=== PATIENT | male | born 1945 | race Caucasian/White ===

== ENCOUNTER 2018-02-11 13:17 | Emergency (ER) | payer OTHER ==
--- OUTSIDE RECORDS SUMMARY | 2018-02-11 13:20 | XMS REPORT | Clinical Summary ---
:1945 Author Organization [facility]viously [employer] Address [address] [place] [address] Phone Care Team Providers Name Role Phone Unavailable Primary Care Provider Unavailable Allergies Active Allergy Reactions Severity Noted Date Comments Meperidine Other (See Comments) 04/05/2017 Hallucinations Current Medications Prescription Sig. Disp. Refills Start Date End Date Status multivitamin per Take 1 tablet Active tablet by mouth daily. ondansetron Take 4 mg by Active (ZOFRAN-ODT) 4 MG mouth every 8 disintegrating (eight) hours tablet as needed for Nausea. magnesium oxide Take 400 mg by Active (MAG-OX) 400 mg mouth 2 (two) tablet times daily. ascorbic acid, Take 500 mg by Active vitamin C, (ASCORBIC mouth daily. ACID WITH ALMA HIPS) 500 MG tablet omega-3 fatty Take 1,000 mg Active acids-vitamin E by mouth. 1,000 mg Cap albuterol HFA Inhale 2 puffs Active (VENTOLIN HFA) 90 by mouth via mcg/actuation inhaler every inhaler 6 (six) hours as needed for Wheezing. dexamethasone Take 1 tablet 12 tablet 0 12/26/2017 Active (DECADRON) 4 MG 3 times a day tablet for 2 days, followed by 1 tablet 2 times a day for 2 days, followed by 1 tablet once daily for 2 days.. dexamethasone Take 4 mg by Discontinued (DECADRON) 4 MG mouth 2 (two) 7 tablet times daily with breakfast and dinner. potassium chloride Take 10 mEq by Discontinued SA (K-DUR,KLOR-CON) mouth 2 (two) 7 10 MEQ tablet times daily Per patient notes, pt takes 95 mg. daily . doxycycline Take 1 capsule 36 capsule 0 04/25/2017 (MONODOX) 100 MG (100 mg total) 7 capsule by mouth 2 (two) times daily for 18 days. fluconazole Take 2 tablets 36 tablet 0 04/25/2017 (DIFLUCAN) 200 MG (400 mg total) 7 tablet by mouth daily for 18 days. metroNIDAZOLE Take 1 tablet 54 tablet 0 04/25/2017 (FLAGYL) 500 MG (500 mg total) 7 tablet by mouth 3 (three) times daily for 18 days. dexamethasone Take 1 tablet 12 tablet 0 12/26/2017 Discontinued (DECADRON) 4 MG 3 times a day 8 tablet for 2 days, followed by 1 tablet 2 times a day for 2 days, followed by 1 tablet once daily for 2 days.. Active Problems Problem Noted Date Acute nonintractable headache, unspecified headache type 12/23/2017 Hypokalemia 12/23/2017 Cerebellar mass 12/23/2017 Acute basilic vein thrombosis, right 04/20/2017 Empyema of right pleural space (HCC) s/p pigtail 04/07; PMH small cell lung 01/2017 cancer s/p chemo x2 rounds, recurrent right pleural effusions, visceral and pleural decortication (04/15/17) Bacteremia 04/07/2017 SOB (shortness of breath) 04/06/2017 Pleural effusion, malignant 04/05/2017 Small cell lung cancer (HCC) Recurrent pleural effusion on right Moderate protein-calorie malnutrition (HCC) Thrush Hyponatremia Encounters Date Type Specialty Care Team Description 12/24/2017 Procedure Pass 12/24/2017 Surgery Mya Hinojosa MD CRANIOTOMY,[facility] 12/23/2017 - Hospital Encounter Intensive Care Arin Arreguin Acute nonintractable 12/26/2017 MD Cali headache, unspecified Mya Hinojosa MD headache type (Primary Dx);Ataxia;Cerebellar mass;Hypokalemia;Brai n mass;Cerebral edema (HCC) 12/23/2017 Anesthesia Event Jessy Guerrero MD 12/23/2017 Orders Only General Internal Medicine 04/15/2017 Procedure Pass 04/15/2017 Surgery Anuj Mcclendon MD 04/14/2017 Anesthesia Event Topher Tyrese CHRISTOPHER Huerta 04/12/2017 Orders Only General Internal Medicine 04/05/2017 - Hospital Encounter Cardiology Amandeep Lau Hyponatremia; Moderate 04/25/2017 MD Giselle protein-calorie FarrisKemal MD ([facility]);Recurrent Gadicherla, pleural effusion on Dinorah right;Small cell lung MD Katie cancer, unspecified Jarrouge, Adrian laterality (HCC);ROMEO Velazquez MD (shortness of Pino, Beatriz breath);Thrush;Bacter MD shahnaz Montejo;Empyema of right pleural space ([facility]);Septicemia, pneumococcal ([facility]);Neutropenic fever ([facility]);Streptococcal septicemia ([facility]);Empyema lung ([facility]);Acute basilic vein thrombosis, right;Radha infection;Infection due to anaerobes after 02/10/2017 Social History Tobacco Use Types Packs/Day Years Used Date Current Some Day Smoker 1.5 40 Smokeless Tobacco: Never Used Tobacco Cessation: Ready to Quit: No; Counseling Given: No Alcohol Use Drinks/Week oz/Week Comments No No EtOH since 1984 Sex Assigned at Date Recorded Not on file Last Filed Vital Signs Vital Sign Reading Time Taken Blood Pressure 138/65 12/26/2017 3:00 PM CDT Pulse 91 12/26/2017 3:00 PM CDT Temperature 36.8 C (98.3 F) 12/26/2017 2:00 PM CDT Respiratory Rate 23 12/26/2017 3:00 PM CDT Oxygen Saturation 99% 12/26/2017 3:00 PM CDT Inhaled Oxygen Concentration - - Weight 59.2 kg (130 lb 8.2 oz) 12/26/2017 5:59 AM CDT Height 167.6 cm (5' 6") 12/23/2017 8:00 PM CDT Body Mass Index 21.07 12/26/2017 5:59 AM CDT Plan of Treatment Not on file Implants Implanted Type Area Graphic Arts Instructor Device Expiration Model / Identifier Date Serial / Lot Dejordan Vhsd Full Strlprep 10ml [id number] - [id number] Cement/Luan N/A: PARKER: BIOSCI 05/04/2019 [id number] / Implanted: Qty: 1 on 12/24/2017 by Mya Hinojosa MD ler/Adhesi Head / ve [id number] Sealant Durasl Spine 5ml [id number] - [id number] Cement/Luan N/A: INTEGRA LIFESCI 12/03/[id number] / Implanted: Qty: 1 on 12/24/2017 by Mya Hinojosa MD ler/Adhesi Head / ve [id number] Cvr Bur-Hl Lp-Neuro 17mm Ti Ns 421.527 - [id number] Fracture/F N/A: SYNTHES: SYNTHES 421.527 / Implanted: Qty: 2 on 12/24/2017 by Mya Hinojosa MD ixation Head USA / Plt Str Lp-Neuro 2h 12mm Ti Ns 421.502 - [id number] Fracture/F N/A: SYNTHES: SYNTHES 421.502 / Implanted: Qty: 4 on 12/24/2017 by Mya Hinojosa MD ixation Head USA / Scr Sd Mtrxneu 4mm Ti Ns 04.503.104.01 - [id number] Fracture/F N/A: SYNTHES: SYNTHES [id number] / Implanted: Qty: 18 on 12/24/2017 by Mya Hinojosa MD ixation Head USA / Graft Matrix Dura 2x2in [id number] - [id number] Tissue N/A: MEDTRONIC 2018 [id number] / Implanted: Qty: 1 on 12/24/2017 by Mya Hinojosa MD Graft/Subs Head SURGICAL / titute NAVIGATION [id number] Grft Dura Cllgn Duragn 2x2in Id-2201 - [id number] Tissue N/A: INTEGRA ID-[id number] / Implanted: Qty: 1 on 12/24/2017 by Mya Hinojosa MD Graft/Subs Head LIFESCI: NEURO / titute [id number] Procedures Procedure Name Priority Date/Time Associated Diagnosis Comments CRANIOTOMY,STEALTH 12/24/2017 11:00 AM CDT BRAIN MASS Special Needs (PRONE, MICROSCOPE, ULTRASOUND, NAVIGATION) THORACOSCOPY (VATS),DECORTICATION 04/15/2017 11:30 AM CDT Empyema (HCC) Case Notes FLEXIBLE BRONCHOSCOPY, RIGHT THORACOSCOPIC PLEURAL BIOPSY, POSS DECORTICATION THORACOSCOPY (VATS),BIOPSY OF PLEURA 04/15/2017 11:30 AM CDT Empyema (HCC) Case Notes FLEXIBLE BRONCHOSCOPY, RIGHT THORACOSCOPIC PLEURAL BIOPSY, POSS DECORTICATION BRONCHOSCOPY 04/15/2017 11:30 AM CDT Empyema (HCC) Case Notes FLEXIBLE BRONCHOSCOPY, RIGHT THORACOSCOPIC PLEURAL BIOPSY, POSS DECORTICATION after 02/10/2017 Results INTRAOPERATIVE PATH REPORT - SCAN (12/29/2017 2:50 PM)Only the most recent of2 resultswithin the time period is included.RHYTHM STRIP - SCAN (12/29/2017 2:50 PM)Only the most recent of4 resultswithin the time period is included.POC- Glucose meter (12/26/2017 12:41 PM)Only the most recent of10 resultswithin the time period is included. Component Value Ref Range POC-Glucose Meter 141 (H)Comment: TESTED AT [address] 70 - 110 mg/[place] [id number] Specimen Performing Laboratory Blood [facility] [address] [address] CBC with platelet count + automated diff (12/26/2017 3:58 AM)Only the most recent of25 resultswithin the time period is included. Component Value Ref Range WBC 14.9 (H) 3.5 - 10.5 K/L RBC 3.20 (L) 4.63 - 6.08 M/L Hemoglobin 11.3 (L) 13.7 - 17.5 GM/DL Hematocrit 33.0 (L) 40.1 - 51.0 % MCV 103.1 (H) 79.0 - 92.2 fL MCH 35.3 (H) 25.7 - 32.2 pg MCHC 34.2 32.3 - 36.5 GM/DL RDW 13.0 11.6 - 14.4 % Platelets 127 (L) 150 - 450 K/CU MM MPV 10.0 9.4 - 12.4 fL nRBC 0 0 - 0 /100 WBC % Neutros 87 % % Lymphs 4 % % Monos 8 % % Eos 0 % % Baso 0 % # Neutros 13.03 (H) 1.78 - 5.38 K/L # Lymphs 0.57 (L) 1.32 - 3.57 K/L # Monos 1.22 (H) 0.30 - 0.82 K/L # Eos 0.00 (L) 0.04 - 0.54 K/L # Baso 0.01 0.01 - 0.08 K/L Immature Granulocytes-Relative 1 0 - 1 % Specimen Performing Laboratory Blood [address] [address] CBC with platelet count + automated diff (12/26/2017 3:58 AM)Only the most recent of25 resultswithin the time period is included. Specimen Performing Laboratory Blood Narrative The following orders were created for panel order CBC with platelet count + automated diff. Procedure Abnormality Status --------- ------ CBC with platelet count ...[[id number]]AbnormalFinal result Please view results for these tests on the individual orders. Phosphorus (12/26/2017 3:58 AM)Only the most recent of6 resultswithin the time period is included. Component Value Ref Range Phosphorus 2.5 2.3 - 4.7 mg/dL Specimen Performing Laboratory Blood [address] [address] Magnesium (12/26/2017 3:58 AM)Only the most recent of27 resultswithin the time period is included. Component Value Ref Range Magnesium 2.0 1.6 - 2.6 mg/dL Specimen Performing Laboratory Blood [address] [address] Basic Metabolic Panel (12/26/2017 3:58 AM)Only the most recent of27 resultswithin the time period is included. Component Value Ref Range Sodium 141 136 - 145 meq/L Potassium 3.8 3.5 - 5.1 meq/L Chloride 108 (H) 98 - 107 meq/L CO2 26 22 - 29 meq/L BUN 25 (H) 7 - 21 mg/dL Creatinine 0.81 0.57 - 1.25 mg/dL Glucose 121 (H) 70 - 105 mg/dL Calcium 8.2 (L) 8.4 - 10.2 mg/dL EGFR 94Comment: ESTIMATED GFR IS NOT ACCURATE mL/min/1.73 sq m CREATININE CLEARANCE IN PREDICTING GLOMERULAR FILTRATION RATE. ESTIMATED GFR IS NOT APPLICABLE FOR DIALYSIS PATIENTS. Specimen Performing Laboratory [address] [address] MR brain without & with IV contrast (12/25/2017 7:10 PM) Specimen Performing Laboratory GE RIS Narrative FINAL REPORT MRI brain with and without contrast Comparison: Outside MRI December 23, 2017 Reason for exam: Metastatic chest neoplasm Discussion: Multiplanar MR imaging of the brain was provided [id number] IV gadolinium administration using T1, T2, FLAIR, T2 star, diffusion weighted sequences, and ADC map imaging. There is craniotomy right posterior occipital region with gross total resection of a right-sided posterior occipital lobe enhancing lesion. There is also left lateral posterior fossa region occipital craniotomy with gross total resection of a large left-sided lateral cerebellar mass. Small hemorrhages are present at both locations. There is persistent vasogenic edema at both locations with persistent posterior fossa mass effect. Fourth ventricular distortion is persistent but improved. A small right-sided parafalcine subdural hemorrhage is present without mass effect. No hydrocephalus. No gross hematoma. Impressions: Gross total sections right smaller posterior occipital mass and left dominant cerebellar mass. Residual vasogenic edema and mass effect as discussed. Minimal perioperative hemorrhages. Short-term head CT follow-up is suggested. Signed: Sabina Perez MD Report Verified Date/Time:12/25/2017 20:17:47 Procedure Note Interface, External Ris In - 12/25/2017 8:19 PM CDT FINAL REPORT MRI brain with and without contrast Comparison: Outside MRI December 23, 2017 Reason for exam: Metastatic chest neoplasm Discussion: Multiplanar MR imaging of the brain was provided [id number] IV gadolinium administration using T1, T2, FLAIR, T2 star, diffusion weighted sequences, and ADC map imaging. There is craniotomy right posterior occipital region with gross total resection of a right-sided posterior occipital lobe enhancing lesion. There is also left lateral posterior fossa region occipital craniotomy with gross total resection of a large left-sided lateral cerebellar mass. Small hemorrhages are present at both locations. There is persistent vasogenic edema at both locations with persistent posterior fossa mass effect. Fourth ventricular distortion is persistent but improved. A small right-sided parafalcine subdural hemorrhage is present without mass effect. No hydrocephalus. No gross hematoma. Impressions: Gross total sections right smaller posterior occipital mass and left dominant cerebellar mass. Residual vasogenic edema and mass effect as discussed. Minimal perioperative hemorrhages. Short-term head CT follow-up is suggested. Signed: Sabina Perez MD Report Verified Date/Time: 12/25/2017 20:17:47 SFUSION SERVICE REPORT - SCAN (12/24/2017 5:44 PM)Tissue Exam (12/24/2017 2:21 PM)Only the most recent of2 resultswithin the time period is included. Component Value Ref Range Case Report Surgical Pathology Report Case: [id number] Authorizing Provider:Mya Hinojosa MDCollected: 12/24/2017 1421 Ordering Location: [place] [address] ICUReceived: 12/24/2017 1428 Pathologist: Aleksandar Browne MD Specimens: A) - Tumor, Left Cerebellar Tumor B) - Tumor, Left Cerebellar Tumor C) - Tumor, Right Occipital Tumor DIAGNOSIS A. BRAIN, LEFT CEREBELLAR HEMISPHERE, CRANIOTOMY: METASTATIC NEUROENDOCRINE CARCINOMA, CONSISTENT WITH LUNG PRIMARY B BRAIN, LEFT CEREBELLAR HEMISPHERE, CRANIOTOMY: METASTATIC NEUROENDOCRINE CARCINOMA, CONSISTENT WITH LUNG PRIMARY C BRAIN, LEFT CEREBELLAR HEMISPHERE, CRANIOTOMY: METASTATIC NEUROENDOCRINE CARCINOMA, CONSISTENT WITH LUNG PRIMARY Signing Pathologist Direct Phone Line: [phone] COMMENT Each of the 3 specimens have a similar histologic appearance and consist of a small cell proliferation with nuclear molding and a high nuclear to cytoplasmic ratio. Necrosis and tumor degeneration is frequent. Mitoses are also frequent. Immunoperoxidase stains performed on the first specimen confirm strong and diffuse immunopositivity of tumor cells for synaptophysin, CAM 5.2, AE1/3, TTF-1, and CD 56. No staining for Napsin A is evident. GFAP stains background gliotic brain, but no tumor cell staining is observed. Chromogranin stain is patchy in distribution. 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 CPT Code(s) 19200 3 ; 83310; 83885; 62314 7 CLINICAL HISTORY Left cerebellar tumor SPECIMEN SOURCE A. Left cerebellar tumor; B. Left cerebellar tumor; C. Right occipital tumor GROSS DESCRIPTION Specimen A: Received fresh for intraoperative frozen consultation diagnosis labeled "brain tumor" is an aggregate of allen-pink tissue measuring 2.5 x 1.5 x 1 cm. A touch prep is made and the specimen is submitted in its entirety as follows: A1FS, frozen section; A2 to A3, rest of the tissue. TQ/pl Specimen B: Received fresh labeled "tumor", description "left cerebellar tumor" is a 2.3 x 2.0 x 0.3 cm aggregate of pink-allen to nichols-white, rubbery, friable soft tissue. The specimen is entirely submitted in cassette B1. DB/pl Specimen C: The specimen is received in a formalin-filled container and labeled with the patient's information and labeled "right occipital tumor" and consists of friable allen-red soft tissue measuring 0.8 x 0.6 x 0.3 cm, submitted entirely C1. CG/pl INTRAOPERATIVE CONSULTATION BRAIN, LEFT CEREBELLAR TUMOR, RESECTION: - MALIGNANT SMALL BLUE CELL NEOPLASM - THIS DIAGNOSIS WAS REPORTED TO OR-[address] BROWNE AT 2:49 P.M. MICROSCOPIC DESCRIPTION Performed on A C SPECIAL STUDIES The following special studies were performed on this case and the interpretation is incorporated in the diagnostic report above: The immunohistochemistry test was developed and its performance characteristics determined by [facility], Pathology Laboratory. It has not been cleared or approved by the U.S. Food and Drug Administration. The FDA has determined that such clearance or approval is not necessary. The test is used for clinical purposes. It should not be regarded as investigational or for research. This laboratory is certified under the Clinical Laboratory Improvement Amendments of 1988 (CLIA-88) as qualified to perform high complexity clinical laboratory testing. Specimen Performing Laboratory Tissue - Tumor [address] [address] Lipid panel (12/24/2017 4:10 AM) Component Value Ref Range Triglycerides 86Comment: Specimen slightly hemolyzed mg/dL Cholesterol 212Comment: Specimen slightly hemolyzed mg/dL HDL 55 mg/dL LDL Calculated 140 mg/dL Specimen Performing Laboratory Blood - Line, Venous [address] [address] Narrative Triglyceride Reference Range: Low Risk <150 Hilnexylvu517-012 High Risk 200-499 Very High Risk>=500 Cholesterol Reference Range: Low Risk <200 Envuxjarjb144-358 High Risk>240 HDL Cholesterol Reference Range: Low Risk >=60 High Risk <40 LDL Cholesterol Reference Range: Optimal<100 Near Lhsvydu994-414 Rmfghlsoie930-967 Chbq368-812 Very High >=190 CT brain without IV contrast (12/23/2017 8:00 PM) Specimen Performing Laboratory [place] RIS Narrative FINAL REPORT CT head without contrast. Comparisons: Outside MRI December 23 Reason for exam: Neoplasm: head, metastatic, recurrence, suspected/known CT head stealth protocol,1mm cuts, 0 gantry. Pre-op. Discussion: Multiple axial Stealth protocol CT images of the head are provided. Dose modulation, iterative reconstruction, and/or weight based adjustment of the mA/kV was utilized to reduce the radiation dose to as low as reasonably achievable. The dominant left cerebellar lesion is seen as a low-density spherical mass estimated maximal dimension approximately 3.7 cm. There is cerebellar edema and substantial fourth ventricular distortion with mild obstructive hydrocephalus. There is crowding of the foramen magnum with cerebellar tonsillar extension into the foramen magnum. The appearance is overall similar when correlated with recent MRI. The right-sided occipital pole lesion is not well seen although regional vasogenic edema is noted.. Impressions: 1. Dominant left cerebellar hemisphere mass and smaller right occipital pole mass. 2. Obstructive mild hydrocephalus. Cerebellar tonsillar extension to the foramen magnum level is noted.. Signed: Sabina Perez MD Report Verified Date/Time:12/23/2017 20:27:19 Procedure Note Interface, External Ris In - 12/23/2017 8:29 PM CDT FINAL REPORT CT head without contrast. Comparisons: Outside MRI December 23 Reason for exam: Neoplasm: head, metastatic, recurrence, suspected/known CT head stealth protocol,1mm cuts, 0 gantry. Pre-op. Discussion: Multiple axial Stealth protocol CT images of the head are provided. Dose modulation, iterative reconstruction, and/or weight based adjustment of the mA/kV was utilized to reduce the radiation dose to as low as reasonably achievable. The dominant left cerebellar lesion is seen as a low-density spherical mass estimated maximal dimension approximately 3.7 cm. There is cerebellar edema and substantial fourth ventricular distortion with mild obstructive hydrocephalus. There is crowding of the foramen magnum with cerebellar tonsillar extension into the foramen magnum. The appearance is overall similar when correlated with recent MRI. The right-sided occipital pole lesion is not well seen although regional vasogenic edema is noted.. Impressions: 1. Dominant left cerebellar hemisphere mass and smaller right occipital pole mass. 2. Obstructive mild hydrocephalus. Cerebellar tonsillar extension to the foramen magnum level is noted.. Signed: Sabina Perez MD Report Verified Date/Time: 12/23/2017 20:27:19 Urinalysis w/Microscopic (12/23/2017 3:16 PM) Component Value Ref Range Color, UA Yellow Clarity, UA Hazy Specific [place], UA 1.024 1.001 - 1.035 pH, UA 6.5 5.0 - 8.0 Protein, UA 10 mg/dL (A) Negative Glucose, UA Negative Negative Ketones, UA Trace (A) Negative Bilirubin, UA Negative Negative Blood, UA Negative Negative Nitrite, UA Negative Negative Leukocytes, UA Negative Negative Urobilinogen, UA 0.2 0.2 - 1.0 mg/dL RBC, UA <1 /HPF WBC, UA 2 /HPF Mucus Few Specimen Source Specimen Performing [place] [address] ED ECG Interpretation (12/23/2017 2:34 PM) Narrative Arin Arreguin MD 12/23/20172:34 PM ECG/EKG Interpretation Date/Time: 12/23/2017 2:33 PM Performed by: ARIN ARREGUIN Authorized by: ARIN ARREGUIN The ECG was interpreted by ED physician. The ECG is interpreted as sinus rhythm. Rate is normal rate. Clinical Impression: non-specific ECG ECG 12 lead (12/23/2017 1:52 PM)Only the most recent of2 resultswithin the time period is included. Specimen Performing Laboratory GE MUSE Narrative Ventricular Rate 81 BPM Atrial Rate 81 BPM P-R Interval 156 ms QRS Duration 84 ms Q-T Interval 402 ms QTC Calculation(Bazett) 466 ms P [place] 72 degrees R [place] 79 degrees T [place] 75 degrees Normal sinus rhythm Possible Left atrial enlargement Cannot rule out Anterior infarct , age undetermined Prolonged QT Abnormal ECG When compared with ECG of 12-APR-2017 06:10, T wave inversion now evident in Anterior leads QT has lengthened Confirmed by MD ANNA, ZULEIKA ([id number]) on 12/24/2017 6:40:55 AM Procedure Note Interface, External Ris In - 12/24/2017 6:41 AM CDT Ventricular Rate 81 BPM Atrial Rate 81 BPM P-R Interval 156 ms QRS Duration 84 ms Q-T Interval 402 ms QTC Calculation(Bazett) 466 ms P [place] 72 degrees R [place] 79 degrees T [place] 75 degrees Normal sinus rhythm Possible Left atrial enlargement Cannot rule out Anterior infarct , age undetermined Prolonged QT Abnormal ECG When compared with ECG of 12-APR-2017 06:10, T wave inversion now evident in Anterior leads QT has lengthened Confirmed by MD ANNA, ZULEIKA ([id number]) on 12/24/2017 6:40:55 AM Type and screen, automated (12/23/2017 1:49 PM)Only the most recent of2 resultswithin the time period is included. Component Value Ref Range ABO/RH AUTOMATED (BEAKER) B NEGATIVE Ab Scrn NEGATIVE Specimen Performing Laboratory Blood [facility] [address] [place] [address] XR chest 1 view portable / bedside (12/23/2017 1:43 PM)Only the most recent of27 resultswithin the time period is included. Specimen Performing Laboratory GE RIS Narrative FINAL REPORT Chest two views AP 12/23/2017 1:30 PM CLINICAL INDICATION: HEADACHE GAIT PROBLEM COMPARISON: 04/25/2017 IMPRESSION: There is a trace left pleural effusion with adjacent basilar atelectasis. Superimposed pneumonia should be excluded clinically. The left lung is well aerated. Cardiomediastinal contours are within normal limits. The central pulmonary vasculature is not engorged. Signed: Fidel Iverson MD Report Verified Date/Time:12/23/2017 13:30:55 Reading Location: [facility] C0[facility] Consult Reading Room Procedure Note Interface, External Ris In - 12/23/2017 1:44 PM CDT FINAL REPORT Chest two views AP 12/23/2017 1:30 PM CLINICAL INDICATION: HEADACHE GAIT PROBLEM COMPARISON: 04/25/2017 IMPRESSION: There is a trace left pleural effusion with adjacent basilar atelectasis. Superimposed pneumonia should be excluded clinically. The left lung is well aerated. Cardiomediastinal contours are within normal limits. The central pulmonary vasculature is not engorged. Signed: Fidel Iverson MD Report Verified Date/Time: 12/23/2017 13:30:55 Reading Location: [facility] [id number] Consult Reading Room /aPTT (12/23/2017 12:29 PM)Only the most recent of2 resultswithin the time period is included. Component Value Ref Range Protime 14.7 11.7 - 14.7 seconds INR 1.2 <=5.9 PTT 30.9 22.5 - 36.0 seconds Specimen Performing Laboratory Blood [address] [address] Narrative RECOMMENDED COUMADIN/WARFARIN INR THERAPY RANGES STANDARD DOSE: 2.0 - 3.0 Includes: PROPHYLAXIS for venous thrombosis, systemic embolization; TREATMENT for venous thrombosis and/or pulmonary embolus. HIGH RISK: Target INR is 2.5-3.5 for patients with mechanical heart valves. Blood culture (12/23/2017 12:29 PM)Only the most recent of4 resultswithin the time period is included. Component Value Ref Range Result No growth in 5 days Specimen Performing Laboratory Blood - Arm, Right [address] [address] EKG-SCANNED (04/28/2017 1:01 PM)Manual Differential (04/25/2017 4:58 AM)Only the most recent of12 resultswithin the time period is included. Component Value Ref Range Total Counted WBC Morphology Normal Platelet Morphology Normal Polychromasia 1+ few Specimen Performing Laboratory Blood [address] [address] Vancomycin level, trough (04/24/2017 4:50 AM)Only the most recent of6 resultswithin the time period is included. Component Value Ref Range Vancomycin Tr 17.9 10.0 - 20.0 ug/mL Specimen Performing Laboratory Blood [address] [address] PERIPHERAL VASCULAR REPORT - SCAN (04/20/2017 7:20 AM)Venous doppler arm, right (04/19/2017 3:15 PM) Component Value Ref Range Ejection Fraction Specimen Performing Laboratory [facility] ECHO HEARTLAB MKCKESSON CPACS Impressions Right Impression 1. There is no deep venous obstruction in the jugular, subclavian, axillary, brachial, radial or ulnar veins. 2. There is partial echolucent superficial venous obstruction in the basilic vein. 3. There is no superficial venous obstruction in the cephalic vein. Conclusions Summary Venous duplex imaging and compression of the right upper extremity were performed. The veins were adequately visualized. The right venous system was positive with partial acute superficial venous thrombosis in the basilic vein. Signature Velocities are measured in cm/s ; Diameters are measured in cm Narrative PV LAB - Upper Extremities Veins Demographics Patient Name AVE MICHELE Date of Study 04/19/2017 [id number] Age 71 Visit Number [id number] GenderMale Accession Number [id number] Date of 1945 [facility] Room Number 1051 PhysicianCarpenter Thony Meyers. Michael Leroy MD, T,[facility] Physician ADRIAN Procedure Type of Study: Veins: Upper Extremities Veins, VENOUS DOPPLER ARM, RIGHT. Indications for Study:Arm swelling. Patient Status:Routine. Study Location:Vascular Lab. Technical Quality:Technically Difficult. - Results were reported to:TAWANDA Franklin@ 3:23 PM. Risk Factors History of Disease + +----+ + !Diagnosis !Date!Comments! + +----+ + !History/Risk Factors: !!HT, lung CA ! + +----+ + Procedure Note Interface, External Ris In - 04/20/2017 6:57 AM CDT PV LAB - Upper Extremities Veins Demographics Patient Name AVE MICHELE Date of Study 04/19/2017 Age 71 Visit Number [id number] Gender Male Accession Number [id number] Date of 1945 Referring [facility] Room Number 1051 Physician Martínez [employer] Manager Marilyn Valderrama, Will Leroy MD, RVT,RDCS Physician RPVI Procedure Type of Study: Veins: Upper Extremities Veins, VENOUS DOPPLER ARM, RIGHT. Indications for Study:Arm swelling. Patient Status:Routine. Study Location:Vascular Lab. Technical Quality:Technically Difficult. - Results were reported to:TAWANDA Franklin@ 3:23 PM. Risk Factors History of Disease + +----+ + !Diagnosis !Date!Comments ! + +----+ + !History/Risk Factors: ! !HT, lung CA ! + +----+ + Impressions Right Impression 1. There is no deep venous obstruction in the jugular, subclavian, axillary, brachial, radial or ulnar veins. 2. There is partial echolucent superficial venous obstruction in the basilic vein. 3. There is no superficial venous obstruction in the cephalic vein. Conclusions Summary Venous duplex imaging and compression of the right upper extremity were performed. The veins were adequately visualized. The right venous system was positive with partial acute superficial venous thrombosis in the basilic vein. Signature Velocities are measured in cm/s ; Diameters are measured in cm Prepare Leuko-Red RBC (04/18/2017 11:55 PM) Component Value Ref Range CROSSMATCH COMPATIBLE Unit ABO B Neg UNIT NUMBER [id number] Status TRANSFUSED Blood Bank Product RED BLOOD CELLS PRODUCT CODE [id number] Specimen Performing Laboratory Other [employer] Blood gas, arterial: If A-Line only (04/18/2017 4:03 AM)Only the most recent of8 resultswithin the time period is included. Component Value Ref Range pH, Arterial 7.49 (H) 7.35 - 7.45 pCO2, Arterial 33 (L) 35 - 45 mmHg pO2, Arterial 92 (H) 80 - 90 mmHg O2 Sat, Arterial 97.5 (H) 96.0 - 97.0 % HCO3, Arterial 24 21 - 29 mmol/L Base Excess, Arterial 1.5 -2.0 - 3.0 mmol/L Patient Temperature 37.5 C FIO2 21.0 % Specimen Performing Laboratory Blood, Arterial - Line, Arterial [address] [address] Narrative If A-Line only Transfuse Leuko-Red RBC (04/17/2017 8:45 PM)Only the most recent of2 resultswithin the time period is included.Bronchial culture + gram stain (2016 10:36 AM)Only the most recent of2 resultswithin the time period is included. Component Value Ref Range Result <1+ Normal respiratory judith present Gram Stain Result 3+ WBCs Gram Stain Result <1+ gram positive cocci in pairs Gram Stain Result <1+ gram variable coccobacilli Specimen Performing Laboratory BAL - Lung [address] [address] Hemoglobin and hematocrit (04/16/2017 12:17 AM) Component Value Ref Range Hemoglobin 8.3 (L) 13.0 - 16.8 GM/DL Hematocrit 25.1 (L) 40.0 - 50.0 % Specimen Performing Laboratory Blood [address] [address] CBC (Hemogram only) (04/15/2017 7:30 PM) Component Value Ref Range WBC 31.7 (H) 4.0 - 10.0 K/L RBC 3.11 (L) 4.20 - 5.80 M/L Hemoglobin 9.5 (L) 13.0 - 16.8 GM/DL Hematocrit 30.2 (L) 40.0 - 50.0 % MCV 97.2 82.0 - 98.0 fL MCH 30.4 27.0 - 33.0 pg MCHC 31.3 (L) 32.0 - 36.0 GM/DL RDW 16.0 (H) 10.3 - 14.2 % Platelets 482 (H) 150 - 430 K/CU MM MPV 5.8 (L) 6.5 - 10.5 fL nRBC 0 0 - 0 /100 WBC Specimen Performing Laboratory Blood [address] [address] AFB culture + smear (04/15/2017 6:55 PM)Only the most recent of4 resultswithin the time period is included. Component Value Ref Range Result No acid-fast bacilli isolated in 42 days AFB Smear No acid fast bacilli seen Specimen Performing Laboratory Other - Lung, Left [address] [address] Fungus culture + smear (04/15/2017 6:55 PM)Only the most recent of4 resultswithin the time period is included. Component Value Ref Range Result <1+ Radha albicans (A) Fungus Smear No fungi seen Specimen Performing Laboratory Other - Lung, Left [address] [address] SPIN/CONCENTRATION CHARGE (04/15/2017 6:55 PM) Component Value Ref Range Concentration charged Done Specimen Performing Laboratory Other - Lung, [address] [address] Anaerobic culture (04/15/2017 6:41 PM)Only the most recent of3 resultswithin the time period is included. Component Value Ref Range Result <1+ Prevotella species (A)Comment: * - Unable to Grow for susceptibility Result <1+ Veillonella parvula (A) Result <1+ Lactobacillus species (A) Specimen Performing Laboratory Other - Lung, Right [address] [address] Organism Antibiotic Method Susceptibility Veillonella parvula Ampicillin + Sulbactam <=1: Susceptible Veillonella parvula Cefoxitin <=2: Susceptible Veillonella parvula Cefotaxime <=2: Susceptible Veillonella parvula Penicillin G 1: Resistant Veillonella parvula Clindamycin <=0.5: Susceptible Veillonella parvula Metronidazole <=0.5: Susceptible Veillonella parvula Piperacillin 32: Susceptible Surgically obtained culture + gram stain (04/15/2017 6:41 PM)Only the most recent of3 resultswithin the time period is included. Component Value Ref Range Result See comment Gram Stain Result 1+ WBCs Gram Stain Result <1+ gram positive cocci in pairs Specimen Performing Laboratory Tissue - Lung, Right [address] [address] Narrative 1+ Normal respiratory judith present [facility] CRITICAL LABS (ABG,NA,K,H&H,GLUCOSE) (04/15/2017 4:24 PM)Only the most recent of2 resultswithin the time period is included. Specimen Performing Laboratory Blood, Arterial Narrative The following orders were created for panel order [facility] CRITICAL LABS (ABG,NA,K,H&H,GLUCOSE). Procedure Abnormality Status --------- ------ Blood gas, arterial[[id number]]AbnormalFinal result Sodium Na-Stat Lab[[id number]] AbnormalFinal result Potassium-Stat Lab[[id number]] NormalFinal result Glucose-Stat Lab[[id number]] NormalFinal result HGB/HCT (H&H)-Stat Lab[[id number]] Abnormal Final result Please view results for these tests on the individual orders. Potassium-Stat Lab (04/15/2017 4:24 PM)Only the most recent of2 resultswithin the time period is included. Component Value Ref Range Potassium 3.9 3.6 - 5.5 meq/L Specimen Performing Laboratory Blood, Arterial [address] [address] Sodium Na-Stat Lab (04/15/2017 4:24 PM)Only the most recent of2 resultswithin the time period is included. Component Value Ref Range Sodium 134 (L) 135 - 148 meq/L Specimen Performing Laboratory Blood, [address] [address] Glucose-Stat Lab (04/15/2017 4:24 PM)Only the most recent of2 resultswithin the time period is included. Component Value Ref Range Glucose 105 70 - 110 mg/dL Specimen Performing Laboratory Blood, [address] [address] HGB/HCT (H&H)-Stat Lab (04/15/2017 4:24 PM)Only the most recent of2 resultswithin the time period is included. Component Value Ref Range Hemoglobin 9.2 (L) 13.0 - 16.8 g/dL Hematocrit 27.0 (L) 40.0 - 50.0 % Specimen Performing Laboratory Blood, [address] [place] [address] Calcium, Ionized (04/15/2017 2:57 PM) Component Value Ref Range Calcium, Ion 0.98 (L) 1.12 - 1.27 mmol/L pH, Blood 7.30 Specimen Performing Laboratory Blood [address] [address] ABORH, manual (04/15/2017 4:35 AM) Component Value Ref Range ABO Grouping B Rh Factor NEG Specimen Performing Laboratory Blood [address] [address] [address] chest without IV contrast (04/14/2017 12:50 PM)Only the most recent of3 resultswithin the time period is included. Specimen Performing Laboratory [employer] Portal (CAP) Narrative FINAL REPORT CT of the chest, without contrast Clinical History:eval empyema Technique: CT of the chest is performed without intravenous contrast administration. This exam was performed according to our departmental dose optimization program which includes automated exposure control, adjustment of the mA and/or kV according to patient's size and/or use of iterative reconstructive technique. Comparison Film:April 11, 2017, April 06, 2017 Discussion: Visualized thyroid gland is unremarkable. There is no supraclavicular, axillary lymphadenopathy. Mildly enlarged right hilar and mediastinal lymph nodes are without significant interval change. Heart and pericardium are also unremarkable. There is a persistent right hydropneumothorax, with a percutaneous tail catheter in stable position. Fluid content continues to decrease. Mild right sided pleural thickening is present. Dense consolidation in the right lower lobe is unchanged. Atelectasis/consolidation in the posterior right middle lobe has improved. There is also decreased occlusion of the interlobar bronchus. Emphysema, and pulmonary fibrosis is again noted. There is mild biapical scarring. No new consolidation. Partially imaged upper abdomen demonstrates no acute process. Osseous structures demonstrate mild degenerative changes. Impression: Right hydropneumothorax, fluid content continues to decrease. Stable dense consolidation in the right lower lobe. Improved atelectasis/consolidation in posterior right middle lobe. Signed: Jeovany Kramer MD Report Verified Date/Time:04/14/2017 14:10:07 Reading Location: [facility] [id number] Ortho Consult Reading Room Procedure Note Interface, External Ris In - 04/14/2017 2:12 PM CDT FINAL REPORT CT of the chest, without contrast Clinical History: eval empyema Technique: CT of the chest is performed without intravenous contrast administration. This exam was performed according to our departmental dose optimization program which includes automated exposure control, adjustment of the mA and/or kV according to patient's size and/or use of iterative reconstructive technique. Comparison Film: April 11, 2017, April 06, 2017 Discussion: Visualized thyroid gland is unremarkable. There is no supraclavicular, axillary lymphadenopathy. Mildly enlarged right hilar and mediastinal lymph nodes are without significant interval change. Heart and pericardium are also unremarkable. There is a persistent right hydropneumothorax, with a percutaneous tail catheter in stable position. Fluid content continues to decrease. Mild right sided pleural thickening is present. Dense consolidation in the right lower lobe is unchanged. Atelectasis/consolidation in the posterior right middle lobe has improved. There is also decreased occlusion of the interlobar bronchus. Emphysema, and pulmonary fibrosis is again noted. There is mild biapical scarring. No new consolidation. Partially imaged upper abdomen demonstrates no acute process. Osseous structures demonstrate mild degenerative changes. Impression: Right hydropneumothorax, fluid content continues to decrease. Stable dense consolidation in the right lower lobe. Improved atelectasis/consolidation in posterior right middle lobe. Signed: Jeovany Kramer MD Report Verified Date/Time: 04/14/2017 14:10:07 Reading Location: [address] Ortho Consult Reading Room 2D Echo W/Doppler(CW/PW/Color) (04/10/2017 9:18 AM) Specimen Performing Laboratory DIGISONICS Narrative Echocardiography Laboratory [address] [place] [address] Voice:[phone] Transthoracic Echocardiogram Pat.Name:Madelyn MICHELE.ID:[id number] .Date: 04/10/2017Refer.MD:ADRIAN DIXON Exam Time: 9:18:00 AMStudy Type:Echo Complete Height:66inWeight: 125lb BSA: 1.64 m2 DOBAge:1945,71Y Sex: MALEBP:124/71 HR:93 bpmSonogrphr: Briannavance Marquez [facility] Pat. Stat.:Inpatient Room:1006 Reason for Study:RECENT BACTEREMIA; EVAL FOR ENDOCARDITIS History / Clinical:Hypertension, Pleural effusion, Shortness of breath, SMALL CELL LUNG CA Procedures:2D ECHO W/ DOPPLER (CW/PW/COLOR), M-mode, Definity contrast done Race: SUMMARY: LV endocardium is adequately visualized withIV contrast. Normal LV chamber size. Normal wall thickness. Normal overall LV systolic function. No apparent segmental wall motion abnormalities. Overall LV systolic function normal by available views. Estimated LVEF by qualitative assessment is increased (>60%). The right ventricular chamber size and systolic function are within normal limits. Unable to estimate peak systolic PA pressure; inadequate TR velocity signal. The inferior vena cava size is small. The estimated RA pressure by IVC dynamics 0-5 mmHg. FINDINGS: LV: Normal LV chamber size. Normal wall thickness. Normal overallLV systolic function. No apparent segmental wall motionabnormalities. Overall LV systolic function normal byavailable views. Estimated LVEF by qualitative assessmentis increased (>60%). LV endocardium is adequatelyvisualized withIV contrast. LA: LA size is normal. RV: The right ventricular chamber size and systolic function are withinnormal limits. RA: RA cavity size is normal. AV: Normal AoV structure by available views. MV: Normal MV structure by available views. TV: A trace of tricuspid regurgitation. Unable to estimate peak systolicPA pressure; inadequate TR velocity signal. PV: Normal PV structure appears normal by available views. AO: Aortic root size (Sinus of Valsalva diameter) is mildly dilated. Pericard: No pericardial effusion is visualized. Systemic Veins: The inferior vena cava size is small. The estimated RA pressureby IVC dynamics 0-5 mmHg. Comparison: No prior exam available for comparison. MEASUREMENTS: 2D LA Sng Plane LA Vol46.6 mlIndex 28.4 ml/m2 LA Area 17 cm2(8.8-23.4) LVOT Stroke Vol & Cardiac Out LVOT 2.1 cm Parasternal Long [place] Ao An 2.06 cm (1.4-2.6) LV%fs 29.9 %(25-46) Ao Rtd3.94 cmLVPWd 1.05 cm IVSd 0.945 cm LA Ds 2.48 cm (2.3-3.9) LVIDd 3.74 cm (4.3-5.1)* LV Wmn 0.998 cm LVIDs 2.62 cm (2-4) DOPPLER LVOT Stroke Vol & Cardiac Out LVOT VTI16.1 cmLVOT CO 5.56 l/min LVOT SV 55.9 mlLVOT CI 3.39 l/min/m2 Aortic Valve SVi (LVOT)34.1 Signed 04/10/2017 05:59 PM Dave Galindo M.D. Procedure Note Interface, External Ris In - 04/10/2017 6:00 PM CDT Echocardiography Laboratory [address] [place] [address] Voice: [phone] Transthoracic Echocardiogram Pat.Name: AVE MICHELE Pat.ID: [id number] .Date: 04/10/2017 Refer.: ADRIAN DIXON Exam Time: 9:18:00 AM Study Type:Echo Complete Height: 66in Weight: 125lb BSA: 1.64 m2 Age: 1 1945,71Y Sex: MALE BP: 124/71 HR: 93 bpm Sonogrphr: Macho Marquez [facility] Pat. Stat.:Inpatient Room: 1006 Reason for Study:RECENT BACTEREMIA; EVAL FOR ENDOCARDITIS History / Clinical:Hypertension, Pleural effusion, Shortness of breath, SMALL CELL LUNG CA Procedures:2D ECHO W/ DOPPLER (CW/PW/COLOR), M-mode, Definity contrast done Race: SUMMARY: LV endocardium is adequately visualized with IV contrast. Normal LV chamber size. Normal wall thickness. Normal overall LV systolic function. No apparent segmental wall motion abnormalities. Overall LV systolic function normal by available views. Estimated LVEF by qualitative assessment is increased (>60%). The right ventricular chamber size and systolic function are within normal limits. Unable to estimate peak systolic PA pressure; inadequate TR velocity signal. The inferior vena cava size is small. The estimated RA pressure by IVC dynamics 0-5 mmHg. FINDINGS: LV: Normal LV chamber size. Normal wall thickness. Normal overall LV systolic function. No apparent segmental wall motion abnormalities. Overall LV systolic function normal by available views. Estimated LVEF by qualitative assessment is increased (>60%). LV endocardium is adequately visualized with IV contrast. LA: LA size is normal. RV: The right ventricular chamber size and systolic function are within normal limits. RA: RA cavity size is normal. AV: Normal AoV structure by available views. MV: Normal MV structure by available views. TV: A trace of tricuspid regurgitation. Unable to estimate peak systolic PA pressure; inadequate TR velocity signal. PV: Normal PV structure appears normal by available views. AO: Aortic root size (Sinus of Valsalva diameter) is mildly dilated. Pericard: No pericardial effusion is visualized. Systemic Veins: The inferior vena cava size is small. The estimated RA pressure by IVC dynamics 0-5 mmHg. Comparison: No prior exam available for comparison. MEASUREMENTS: 2D LA Sng Plane LA Vol 46.6 ml Index 28.4 ml/m2 LA Area 17 cm2 (8.8-23.4) LVOT Stroke Vol & Cardiac Out LVOT 2.1 cm Parasternal Long [place] Ao An 2.06 cm (1.4-2.6) LV%fs 29.9 % (25-46) Ao Rtd 3.94 cm LVPWd 1.05 cm IVSd 0.945 cm LA Ds 2.48 cm (2.3-3.9) LVIDd 3.74 cm (4.3-5.1)* LV Wmn 0.998 cm LVIDs 2.62 cm (2-4) DOPPLER LVOT Stroke Vol & Cardiac Out LVOT VTI 16.1 cm LVOT CO 5.56 l/min LVOT SV 55.9 ml LVOT CI 3.39 l/min/m2 Aortic Valve SVi (LVOT) 34.1 Signed 04/10/2017 05:59 PM Dave Galindo M.D. Body fluid culture + gram stain (04/09/2017 2:51 PM)Only the most recent of2 resultswithin the time period is included. Component Value Ref Range Result No growth Gram Stain Result 4+ WBCs Gram Stain Result No organisms seen Specimen Performing Laboratory Body Fluid - Pleural, Right [facility] [address] [address] Cytology (04/09/2017 2:51 PM) Component Value Ref Range Case Report Medical Cytology Report Case: [id number] Authorizing Provider:Perri Kim, Collected: 04/09/2017 1451 MANAGER PAYER Ordering Location: [address] Received: 04/11/2017 1219 Service Pathologist: Dorene Akers MD Specimen:Pleural, Right DIAGNOSIS RIGHT PLEURAL FLUID (CYTOSPINS AND CELL BLOCK): - NEGATIVE FOR MALIGNANCY - ACUTE INFLAMMATION, MARKED Signing Pathologist Direct Phone Line: [phone] COMMENT The cell block slide shows features identical to those noted in the cytospin smears. CPT Code(s) 03377, 74641 CLINICAL DATA Recurrent right pleural effusion; small cell lung cancer; undergoing chemotherapy and radiation therapy. with recurrent, loculated, right-sided pleural effusion SPECIMEN SOURCE RIGHT PLEURAL FLUID GROSS DESCRIPTION Cell block(A2) and 4 cytospins prepared from 7 ml opaque white blood-tinged fluid Collected: [id number] Received: [id number] MICROSCOPIC DESCRIPTION Performed. STATEMENT OF ADEQUACY Limited Technical component was performed at [facility], Department of Pathology, [address] [place] [address], Professional component was performed [facility], at Department of Pathology, [address] [place] [address], Specimen Performing Laboratory Body Fluid - Pleural, [address] [address] Prothrombin time/INR (04/08/2017 4:03 AM)Only the most recent of3 resultswithin the time period is included. Component Value Ref Range Protime 15.2 (H) 11.7 - 14.7 seconds INR 1.2 <=5.9 Specimen Performing Laboratory Blood - Arm, [address] [address] Narrative RECOMMENDED COUMADIN/WARFARIN INR THERAPY RANGES STANDARD DOSE: 2.0 - 3.0 Includes: PROPHYLAXIS for venous thrombosis, systemic embolization; TREATMENT for venous thrombosis and/or pulmonary embolus. HIGH RISK: Target INR is 2.5-3.5 for patients with mechanical heart valves. pH, body fluid (04/07/2017 6:17 PM) Component Value Ref Range pH, Body Fluid 7.36 Specimen Performing Laboratory Body Fluid - Pleural, [address] [address] Glucose, body fluid (04/07/2017 6:17 PM) Component Value Ref Range Glucose, Body Fluid 5 (L) 70 - 110 mg/dL Specimen Performing Laboratory Body Fluid - Pleural, [address] [address] Narrative Absence of reference range indicates that normals have not been defined. Assay performance has not been validated for this type of specimen. Please obtain glucose with pigtail catheter insertion Please collect with pigtail catheter insertion Please collect with pigtail catheter insertion Body fluid cell count with differential (04/07/2017 6:17 PM) Component Value Ref Range Appearance Cloudy (A) Clear Color Yellow (A) Colorless, Straw RBCs 1250 (H) <=1 /cu mm Adjusted WBC Count [address] (H) <=5 /cu mm Lining Cells 0 <=1 /cu mm % Segs 98 % % Lymphs 0 % % Monos 2 % % Eos 0 % % Baso 0 % Container Body Fluid EDTA Tube Specimen Performing Laboratory Body Fluid - Pleural, [address] [address] Narrative Many degenerated white blood cells present on stained smear. Protein, body fluid (04/07/2017 6:17 PM) Component Value Ref Range Protein, Fluid 2.9 Light's criteria identifies effusions if one or more are present: Pleural to serum protein ratio of more than 0.5; Pleural to Serum LDH of more than 0.6; Pleural LDH of more than two third of upper serum reference limit g/dL Specimen Performing Laboratory Body Fluid - Pleural, [address] [address] Narrative Absence of reference range indicates that normals have not been defined. Assay performance has not been validated for this type of specimen. Please obtain glucose with pigtail catheter insertion Please collect with pigtail catheter insertion Please collect with pigtail catheter insertion Lactate dehydrogenase (LDH), body fluid (04/07/2017 6:17 PM) Component Value Ref Range LDH, Fluid >[address] Light's criteria identifies effusions if one or more are present: Pleural to serum protein ratio of more than 0.5; Pleural to serum LDH ratio of more than 0.6; Pleural LDH more than two third of upper serum reference limit U/L Specimen Performing Laboratory Body Fluid - Pleural, [address] [address] Narrative Absence of reference range indicates that normals have not been defined. Assay performance has not been validated for this type of specimen. Please obtain glucose with pigtail catheter insertion Please collect with pigtail catheter insertion Please collect with pigtail catheter insertion Please collect with pigtail catheter insertion US drainage chest with tube insertion (04/07/2017 5:50 PM) Specimen Performing Laboratory RIS Narrative Addendum Begins REPORT STATUS:A Duration of conscious sedation: Approximately 20 minutes. Signed: Jeovany Kramer MD Report Verified Date/Time:05/06/2017 17:13:22 Reading Location: [address] Radiology Reading Room Addendum Ends FINAL REPORT Ultrasound guided drainage catheter placement, right pleural fluid Clinical History: Right pleural effusion Local anesthesia: 10 cc of 1% lidocaine with bicarbonate Conscious sedation: (Given after informed consent is obtained.) 1.0 mg of Versed and 50 mcg of fentanyl intravenously Consent: The risks (which included the risks of bleeding, infection, injury to adjacent structures/bowel, adverse medication reaction), benefits, and alternatives to the procedure were discussed with the patient. The patient expressed understanding and informed written consent was obtained. Time out: A pre-procedure time out was performed in order to confirm the appropriate site of the procedure. Technique: After informed consent is obtained, the patient's right thorax is scanned with the patient in left decubitus position, after reviewing the previous CT from April 06, 2017. After the skin is prepped and draped in the usual sterile manner, and local anesthesia is achieved, a 8 Swedish catheter is advanced into the fluid collection under sonographic guidance. Approximately 1000 cc of cloudy yellow fluid is drained. The fluid is sent for labs.The catheter is then secured onto the skin via sutures. The patient tolerated the procedure well, without immediate complications. The patient's vital signs remained stable throughout the procedure. Patient disposition: The patient is discharged from the department in stable condition. Impression: Successful and uncomplicated ultrasound guided right chest tube placement. Signed: Jeovany Kramer MD Report Verified Date/Time:04/07/2017 17:50:06 Reading Location: [facility] [id number] Ultrasound Reading Room Procedure Note Interface, External Ris In - 05/06/2017 5:15 PM CDT Addendum Begins REPORT STATUS:A Duration of conscious sedation: Approximately 20 minutes. Signed: Jeovany Kramer MD Report Verified Date/Time: 05/06/2017 17:13:22 Reading Location: [address] Radiology Reading Room Addendum Ends FINAL REPORT Ultrasound guided drainage catheter placement, right pleural fluid Clinical History: Right pleural effusion Local anesthesia: 10 cc of 1% lidocaine with bicarbonate Conscious sedation: (Given after informed consent is obtained.) 1.0 mg of Versed and 50 mcg of fentanyl intravenously Consent: The risks (which included the risks of bleeding, infection, injury to adjacent structures/bowel, adverse medication reaction), benefits, and alternatives to the procedure were discussed with the patient. The patient expressed understanding and informed written consent was obtained. Time out: A pre-procedure time out was performed in order to confirm the appropriate site of the procedure. Technique: After informed consent is obtained, the patient's right thorax is scanned with the patient in left decubitus position, after reviewing the previous CT from April 06, 2017. After the skin is prepped and draped in the usual sterile manner, and local anesthesia is achieved, a 8 Swedish catheter is advanced into the fluid collection under sonographic guidance. Approximately 1000 cc of cloudy yellow fluid is drained. The fluid is sent for labs. The catheter is then secured onto the skin via sutures. The patient tolerated the procedure well, without immediate complications. The patient's vital signs remained stable throughout the procedure. Patient disposition: The patient is discharged from the department in stable condition. Impression: Successful and uncomplicated ultrasound guided right chest tube placement. Signed: Jeovany Kramer MD Report Verified Date/Time: 04/07/2017 17:50:06 Reading Location: [facility] [id number] Ultrasound Reading Room after 02/10/2017
--- OUTSIDE RECORDS SUMMARY | 2018-02-11 13:23 | XMS REPORT ---
:1945 [facility] Address [address] [place] [id number] Care Team Providers Name Role Phone RODRÍGUEZ ARNI MARTÍNEZ Unavailable Unavailable THU UGALDE Unavailable Unavailable Problems This patient has no known problems. Allergies, Adverse Reactions, Alerts This patient has no known allergies or adverse reactions. Medications This patient has no known medications. Results Test Description Test Time Test Comments Text Results Atomic Results Result Comments BLOOD CULTURE 2017-12-28 18:00:00 Test Item Value Reference Range Comments CULTURE (BEAKER) (test bnno=5758) No growth in 5 days BLOOD [id number] 18:00:00 Test Item Value Reference Range Comments CULTURE (BEAKER) (test xgob=9896) No growth in 5 days POCT-GLUCOSE [id number] 13:25:00 Test Item Value Reference Range Comments POC-GLUCOSE METER (BEAKER) 141 mg/dL 70-110 TESTED AT [facility] [address] (test lfkv=9709) [facility] [address] TISSUE [id number] 11:10:00Surgical Pathology Report Case: [id number] Authorizing Provider: Mya Hinojosa MD Collected: 12/24/2017 142 Ordering Location: [place] [address] ICU Received: 12/24/2017 142 Pathologist: Aleksandar Browne MD Specimens: A) - Tumor, Left Cerebellar Tumor B) - Tumor, Left Cerebellar Tumor C) -Tumor, Right Occipital Tumor A. BRAIN, LEFT CEREBELLAR HEMISPHERE, CRANIOTOMY:METASTATIC NEUROENDOCRINE CARCINOMA, CONSISTENT WITH LUNG PRIMARYB BRAIN, LEFT CEREBELLAR HEMISPHERE, CRANIOTOMY:METASTATIC NEUROENDOCRINE CARCINOMA, CONSISTENT WITH LUNG PRIMARYC BRAIN, LEFT CEREBELLAR HEMISPHERE, CRANIOTOMY:METASTATIC NEUROENDOCRINE CARCINOMA, CONSISTENT WITH LUNG PRIMARY Signing Pathologist Direct Phone Line: [phone] signed by Aleksandar Browne MD on at 11:10 AMEach of the 3 specimens have a similar histologic appearance and consist of a small cell proliferation with nuclear molding and a high nuclear to cytoplasmic ratio. Necrosis and tumor degeneration is frequent. Mitoses are also frequent. Immunoperoxidase stains performed on the first specimen confirm strong and diffuse immunopositivity of tumor cells for synaptophysin, CAM 5.2, AE1/3, TTF-1, and CD 56. No staining for Napsin-A is evident. GFAP stains background gliotic brain, but no tumor cell staining is observed. Chromogranin stain is patchy in distribution. 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 Left cerebellar tumor; B. Left cerebellar tumor; C. Right occipital tumorSpecimen A: Received fresh for intraoperative frozen consultation diagnosis labeled "brain tumor" is an aggregate of allen-pink tissue measuring 2.5 x 1.5 x 1 cm. A touch prep is made and the specimen is submitted in its entirety as follows: A1FS, frozen section; A2 to A3, rest of the tissue. TQ/plSpecimen B: Received fresh labeled "tumor", description "left cerebellar tumor" is a 2.3 x 2.0 x 0.3 cm aggregate of pink-allen to nichols-white, rubbery, friable soft tissue. The specimen is entirely submitted in cassette B1. DB/plSpecimen C: The specimen is received in a formalin-filled container and labeled with the patient's information and labeled "right occipital tumor" andconsists of friable allen-red soft tissue measuring 0.8 x 0.6 x 0.3 cm, submitted entirely C1. CG/pl BRAIN, LEFT CEREBELLAR TUMOR, RESECTION: - MALIGNANT SMALL BLUE CELL NEOPLASM - THIS DIAGNOSIS WAS REPORTED TO OR-[address] BROWNE AT 2:49 P.M. Performed on A-CThe following special studies were performed on this case and the interpretation is incorporated in the diagnostic report above:The immunohistochemistry test was developed and its performance characteristics determined by [facility]. It has not been cleared or approved by the U.S. Food and Drug Administration. The FDA has determined that such clearance or approval is not necessary. The test is used for clinical purposes. It should not be regarded as investigational or for research. This laboratory is certified under the Clinical Laboratory Improvement Amendments of 1988 (CLIA-88 ) as qualified to perform high complexity clinical laboratory testing.POCT- GLUCOSE [id number] 09:13:00 Test Item Value Reference Range Comments POC-GLUCOSE METER (BEAKER) 135 mg/dL 70-110 TESTED AT [facility] [address] [facility] (test wduq=1186) [facility] [address] [id number] 05:03:00 Test Item Value Reference Range Comments PHOSPHORUS (BEAKER) (test oliu=419) 2.5 mg/dL 2.3-4.7 [id number] 05:03:00 Test Item Value Reference Range Comments MAGNESIUM (BEAKER) (test dswg=312) 2.0 mg/dL 1.6-2.6 BASIC METABOLIC [id number] 05:03:00 Test Item Value Reference Range Comments SODIUM (BEAKER) (test 141 meq/L 136-145 qrkh=719) POTASSIUM (BEAKER) (test 3.8 meq/L 3.5-5.1 eevz=559) CHLORIDE (BEAKER) (test 108 meq/L 98-107 fvmq=574) CO2 (BEAKER) (test 26 meq/L 22-29 stre=267) BLOOD UREA NITROGEN 25 mg/dL 7-21 (BEAKER) (test xewd=627) CREATININE (BEAKER) (test 0.81 mg/dL 0.57-1.25 qlkn=700) GLUCOSE RANDOM (BEAKER) 121 mg/dL 70-105 (test eqsb=258) CALCIUM (BEAKER) (test 8.2 mg/dL 8.4-10.2 hseo=384) EGFR (BEAKER) (test 94 mL/min/1.73 sq m ESTIMATED GFR IS NOT tamd=2609) ACCURATE CREATININE CLEARANCE IN PREDICTING GLOMERULAR FILTRATION RATE. ESTIMATED GFR IS NOT APPLICABLE FOR DIALYSIS PATIENTS. CBC W/PLT COUNT & AUTO [id number] 04:49:00 Test Item Value Reference Range Comments WHITE BLOOD CELL COUNT (BEAKER) (test xbyh=150) 14.9 K/ L 3.5-10.5 RED BLOOD CELL COUNT (BEAKER) (test vvxe=363) 3.20 M/ L 4.63-6.08 HEMOGLOBIN (BEAKER) (test ewpu=448) 11.3 GM/DL 13.7-17.5 HEMATOCRIT (BEAKER) (test yuib=943) 33.0 % 40.1-51.0 MEAN CORPUSCULAR VOLUME (BEAKER) (test uuux=666) 103.1 fL 79.0-92.2 MEAN CORPUSCULAR HEMOGLOBIN (BEAKER) (test 35.3 pg 25.7-32.2 emio=472) MEAN CORPUSCULAR HEMOGLOBIN CONC (BEAKER) (test 34.2 GM/DL 32.3-36.5 zvcz=148) RED CELL DISTRIBUTION WIDTH (BEAKER) (test 13.0 % 11.6-14.4 uysn=706) PLATELET COUNT (BEAKER) (test ykww=334) 127 K/CU MM 150-450 MEAN PLATELET VOLUME (BEAKER) (test nnuw=128) 10.0 fL 9.4-12.4 NUCLEATED RED BLOOD CELLS (BEAKER) (test 0 /100 WBC 0-0 full=690) NEUTROPHILS RELATIVE PERCENT (BEAKER) (test 87 % hjbq=051) LYMPHOCYTES RELATIVE PERCENT (BEAKER) (test 4 % syes=941) MONOCYTES RELATIVE PERCENT (BEAKER) (test 8 % wbna=977) EOSINOPHILS RELATIVE PERCENT (BEAKER) (test 0 % ipja=483) BASOPHILS RELATIVE PERCENT (BEAKER) (test 0 % xwco=263) NEUTROPHILS ABSOLUTE COUNT (BEAKER) (test 13.03 K/ L 1.78-5.38 nxil=643) LYMPHOCYTES ABSOLUTE COUNT (BEAKER) (test 0.57 K/ L 1.32-3.57 rfvt=780) MONOCYTES ABSOLUTE COUNT (BEAKER) (test 1.22 K/ L 0.30-0.82 gthd=258) EOSINOPHILS ABSOLUTE COUNT (BEAKER) (test 0.00 K/ L 0.04-0.54 qjwq=661) BASOPHILS ABSOLUTE COUNT (BEAKER) (test 0.01 K/ L 0.01-0.08 qbos=901) IMMATURE GRANULOCYTES-RELATIVE PERCENT (BEAKER) 1 % 0-1 (test iahg=6633) MR, BRAIN, [id number] 20:17:00FINAL REPORT MRI brain with and without contrast Comparison: Outside MRI December 23, 2017 Reason for exam: Metastatic chest neoplasm Discussion: Multiplanar MR imaging of the brain was provided wgh-leg-eypn IV gadolinium administration using T1, T2 , FLAIR, T2 star, diffusion weighted sequences, and [...] persistent posterior fossa mass effect. Fourth ventricular distortionis persistent but improved. A small right-sided parafalcine subdural hemorrhage is present without mass effect. No hydrocephalus. No gross hematoma. Impressions : Gross total sections right smaller posterior occipital mass and left dominant cerebellar mass. Residual vasogenic edema and mass effect as discussed. Minimal perioperative hemorrhages. Short-term head CT follow-up is suggested. Signed: Sabina Perez Verified Date/Time: 12/25/2017 20:17: 47 POCT-GLUCOSE [id number] 18:30:00 Test Item Value Reference Range Comments POC-GLUCOSE METER (BEAKER) 123 mg/dL 70-110 TESTED AT [address] (test zcby=1408) [place] [address] POCT-GLUCOSE [id number] 12:19:00 Test Item Value Reference Range Comments POC-GLUCOSE METER (BEAKER) 148 mg/dL 70-110 TESTED AT [address] (test tznz=6928) [place] [address] POCT-GLUCOSE [id number] 08:56:00 Test Item Value Reference Range Comments POC-GLUCOSE METER (BEAKER) 176 mg/dL 70-110 TESTED AT [address] (test fdem=1216) [place] [address] POCT-GLUCOSE [id number] 06:53:00 Test Item Value Reference Range Comments POC-GLUCOSE METER (BEAKER) 111 mg/dL 70-110 TESTED AT [address] (test aujh=8803) [place] [address] [id number] 06:17:00 Test Item Value Reference Range Comments MAGNESIUM (BEAKER) (test qyne=935) 1.8 mg/dL 1.6-2.6 BASIC METABOLIC [id number] 04:43:00 Test Item Value Reference Range Comments SODIUM (BEAKER) (test 140 meq/L 136-145 sthh=421) POTASSIUM (BEAKER) (test 3.5 meq/L 3.5-5.1 acan=143) CHLORIDE (BEAKER) (test 107 meq/L 98-107 szbw=796) CO2 (BEAKER) (test 23 meq/L 22-29 wssg=236) BLOOD UREA NITROGEN 28 mg/dL 7-21 (BEAKER) (test nbit=351) CREATININE (BEAKER) (test 0.80 mg/dL 0.57-1.25 pusg=452) GLUCOSE RANDOM (BEAKER) 113 mg/dL 70-105 (test fvul=866) CALCIUM (BEAKER) (test 8.4 mg/dL 8.4-10.2 bdkx=400) EGFR (BEAKER) (test 96 mL/min/1.73 sq m ESTIMATED GFR IS NOT wwug=3753) ACCURATE CREATININE CLEARANCE IN PREDICTING GLOMERULAR FILTRATION RATE. ESTIMATED GFR IS NOT APPLICABLE FOR DIALYSIS PATIENTS. CBC W/PLT COUNT & AUTO [id number] 04:35:00 Test Item Value Reference Range Comments WHITE BLOOD CELL COUNT (BEAKER) (test zauj=989) 23.4 K/ L 3.5-10.5 RED BLOOD CELL COUNT (BEAKER) (test xvot=655) 3.28 M/ L 4.63-6.08 HEMOGLOBIN (BEAKER) (test ilsq=114) 11.5 GM/DL 13.7-17.5 HEMATOCRIT (BEAKER) (test ejxq=229) 33.6 % 40.1-51.0 MEAN CORPUSCULAR VOLUME (BEAKER) (test ljqy=400) 102.4 fL 79.0-92.2 MEAN CORPUSCULAR HEMOGLOBIN (BEAKER) (test 35.1 pg 25.7-32.2 mclj=315) MEAN CORPUSCULAR HEMOGLOBIN CONC (BEAKER) (test 34.2 GM/DL 32.3-36.5 eatp=076) RED CELL DISTRIBUTION WIDTH (BEAKER) (test 12.8 % 11.6-14.4 ksbv=434) PLATELET COUNT (BEAKER) (test dndb=950) 169 K/CU MM 150-450 MEAN PLATELET VOLUME (BEAKER) (test gdck=356) 9.5 fL 9.4-12.4 NUCLEATED RED BLOOD CELLS (BEAKER) (test 0 /100 WBC 0-0 pxga=767) NEUTROPHILS RELATIVE PERCENT (BEAKER) (test 89 % lvme=989) LYMPHOCYTES RELATIVE PERCENT (BEAKER) (test 2 % mahh=668) MONOCYTES RELATIVE PERCENT (BEAKER) (test 8 % arbc=162) EOSINOPHILS RELATIVE PERCENT (BEAKER) (test 0 % kcor=216) BASOPHILS RELATIVE PERCENT (BEAKER) (test 0 % ptkb=507) NEUTROPHILS ABSOLUTE COUNT (BEAKER) (test 20.86 K/ L 1.78-5.38 spgv=069) LYMPHOCYTES ABSOLUTE COUNT (BEAKER) (test 0.54 K/ L 1.32-3.57 ziap=221) MONOCYTES ABSOLUTE COUNT (BEAKER) (test 1.86 K/ L 0.30-0.82 thij=504) EOSINOPHILS ABSOLUTE COUNT (BEAKER) (test 0.00 K/ L 0.04-0.54 aeuu=248) BASOPHILS ABSOLUTE COUNT (BEAKER) (test 0.02 K/ L 0.01-0.08 zler=136) IMMATURE GRANULOCYTES-RELATIVE PERCENT (BEAKER) 1 % 0-1 (test wpmd=1529) CBC W/PLT COUNT & AUTO [id number] 03:52:00 Test Item Value Reference Range Comments WHITE BLOOD CELL COUNT (BEAKER) (test zyvz=661) 22.7 K/ L 3.5-10.5 RED BLOOD CELL COUNT (BEAKER) (test xpah=645) 3.14 M/ L 4.63-6.08 HEMOGLOBIN (BEAKER) (test rxum=026) 10.9 GM/DL 13.7-17.5 HEMATOCRIT (BEAKER) (test vlto=637) 31.8 % 40.1-51.0 MEAN CORPUSCULAR VOLUME (BEAKER) (test jrzc=123) 101.3 fL 79.0-92.2 MEAN CORPUSCULAR HEMOGLOBIN (BEAKER) (test 34.7 pg 25.7-32.2 mcik=260) MEAN CORPUSCULAR HEMOGLOBIN CONC (BEAKER) (test 34.3 GM/DL 32.3-36.5 tlln=123) RED CELL DISTRIBUTION WIDTH (BEAKER) (test 12.7 % 11.6-14.4 nodj=704) PLATELET COUNT (BEAKER) (test cnac=745) 148 K/CU MM 150-450 MEAN PLATELET VOLUME (BEAKER) (test rhuj=712) 9.4 fL 9.4-12.4 NUCLEATED RED BLOOD CELLS (BEAKER) (test 0 /100 WBC 0-0 txhh=768) NEUTROPHILS RELATIVE PERCENT (BEAKER) (test 88 % mkcc=428) LYMPHOCYTES RELATIVE PERCENT (BEAKER) (test 3 % scqg=390) MONOCYTES RELATIVE PERCENT (BEAKER) (test 8 % jzeg=122) EOSINOPHILS RELATIVE PERCENT (BEAKER) (test 0 % broj=280) BASOPHILS RELATIVE PERCENT (BEAKER) (test 0 % zbew=312) NEUTROPHILS ABSOLUTE COUNT (BEAKER) (test 19.92 K/ L 1.78-5.38 ynqw=432) LYMPHOCYTES ABSOLUTE COUNT (BEAKER) (test 0.57 K/ L 1.32-3.57 usgg=565) MONOCYTES ABSOLUTE COUNT (BEAKER) (test 1.89 K/ L 0.30-0.82 njoa=536) EOSINOPHILS ABSOLUTE COUNT (BEAKER) (test 0.00 K/ L 0.04-0.54 tgmn=999) BASOPHILS ABSOLUTE COUNT (BEAKER) (test 0.04 K/ L 0.01-0.08 guds=596) IMMATURE GRANULOCYTES-RELATIVE PERCENT (BEAKER) 1 % 0-1 (test qdpt=9017) [id number] 03:48:00 Test Item Value Reference Range Comments PHOSPHORUS (BEAKER) (test xuhm=590) 2.0 mg/dL 2.3-4.7 [id number] 03:42:00 Test Item Value Reference Range Comments MAGNESIUM (BEAKER) (test yrgb=100) 1.2 mg/dL 1.6-2.6 POCT-GLUCOSE [id number] 00:52:00 Test Item Value Reference Range Comments POC-GLUCOSE METER (BEAKER) 171 mg/dL 70-110 TESTED AT [facility] [address] [facility] (test qjth=4644) [facility] [address] POCT-GLUCOSE [id number] 18:42:00 Test Item Value Reference Range Comments POC-GLUCOSE METER (BEAKER) 152 mg/dL 70-110 TESTED AT [address] (test wvcs=4284) [facility] [address] POCT-GLUCOSE [id number] 12:52:00 Test Item Value Reference Range Comments POC-GLUCOSE METER (BEAKER) 113 mg/dL 70-110 TESTED AT [address] (test avio=2979) [facility] [address] POCT-GLUCOSE [id number] 09:11:00 Test Item Value Reference Range Comments POC-GLUCOSE METER (BEAKER) 169 mg/dL 70-110 TESTED AT [address] (test nimq=3059) [facility] [address] CBC W/PLT COUNT & AUTO [id number] 04:51:00 Test Item Value Reference Range Comments WHITE BLOOD CELL COUNT (BEAKER) (test ofuv=173) 9.5 K/ L 3.5-10.5 RED BLOOD CELL COUNT (BEAKER) (test fckr=297) 3.74 M/ L 4.63-6.08 HEMOGLOBIN (BEAKER) (test kood=320) 13.1 GM/DL 13.7-17.5 HEMATOCRIT (BEAKER) (test ckzy=479) 37.9 % 40.1-51.0 MEAN CORPUSCULAR VOLUME (BEAKER) (test jboc=235) 101.3 fL 79.0-92.2 MEAN CORPUSCULAR HEMOGLOBIN (BEAKER) (test 35.0 pg 25.7-32.2 icno=372) MEAN CORPUSCULAR HEMOGLOBIN CONC (BEAKER) (test 34.6 GM/DL 32.3-36.5 qnmb=875) RED CELL DISTRIBUTION WIDTH (BEAKER) (test 12.5 % 11.6-14.4 ygqr=775) PLATELET COUNT (BEAKER) (test mkwr=220) 204 K/CU MM 150-450 MEAN PLATELET VOLUME (BEAKER) (test zrqc=034) 9.5 fL 9.4-12.4 NUCLEATED RED BLOOD CELLS (BEAKER) (test 0 /100 WBC 0-0 hojs=340) NEUTROPHILS RELATIVE PERCENT (BEAKER) (test 91 % cbvh=593) LYMPHOCYTES RELATIVE PERCENT (BEAKER) (test 6 % qfhx=276) MONOCYTES RELATIVE PERCENT (BEAKER) (test 3 % mrkb=161) EOSINOPHILS RELATIVE PERCENT (BEAKER) (test 0 % ddko=322) BASOPHILS RELATIVE PERCENT (BEAKER) (test 0 % gjyh=913) NEUTROPHILS ABSOLUTE COUNT (BEAKER) (test 8.60 K/ L 1.78-5.38 pjgp=685) LYMPHOCYTES ABSOLUTE COUNT (BEAKER) (test 0.53 K/ L 1.32-3.57 kvqj=580) MONOCYTES ABSOLUTE COUNT (BEAKER) (test 0.27 K/ L 0.30-0.82 flws=256) EOSINOPHILS ABSOLUTE COUNT (BEAKER) (test 0.01 K/ L 0.04-0.54 usdn=592) BASOPHILS ABSOLUTE COUNT (BEAKER) (test 0.01 K/ L 0.01-0.08 zpxh=054) IMMATURE GRANULOCYTES-RELATIVE PERCENT (BEAKER) 0 % 0-1 (test kmry=4135) [id number] 04:46:00 Test Item Value Reference Range Comments MAGNESIUM (BEAKER) (test 2.3 mg/dL 1.6-2.6 Specimen slightly hemolyzed ahdk=687) [id number] 04:46:00 Test Item Value Reference Range Comments PHOSPHORUS (BEAKER) (test 3.6 mg/dL 2.3-4.7 Specimen slightly hemolyzed ywda=877) BASIC METABOLIC [id number] 04:46:00 Test Item Value Reference Range Comments SODIUM (BEAKER) (test 141 meq/L 136-145 nizw=804) POTASSIUM (BEAKER) (test 4.0 meq/L 3.5-5.1 Specimen slightly pkru=217) hemolyzed CHLORIDE (BEAKER) (test 106 meq/L 98-107 rhpb=715) CO2 (BEAKER) (test 25 meq/L 22-29 mxfl=771) BLOOD UREA NITROGEN 27 mg/dL 7-21 (BEAKER) (test qmba=608) CREATININE (BEAKER) (test 0.88 mg/dL 0.57-1.25 Specimen slightly kfxh=618) hemolyzed GLUCOSE RANDOM (BEAKER) 164 mg/dL 70-105 (test hcue=557) CALCIUM (BEAKER) (test 9.0 mg/dL 8.4-10.2 vimg=931) EGFR (BEAKER) (test 86 mL/min/1.73 sq m ESTIMATED GFR IS NOT vfet=8644) ACCURATE CREATININE CLEARANCE IN PREDICTING GLOMERULAR FILTRATION RATE. ESTIMATED GFR IS NOT APPLICABLE FOR DIALYSIS PATIENTS. LIPID [id number] 04:46:00 Test Item Value Reference Range Comments TRIGLYCERIDES (BEAKER) (test 86 mg/dL Specimen slightly hemolyzed vgta=985) CHOLESTEROL (BEAKER) (test 212 mg/dL Specimen slightly hemolyzed jqje=108) HDL CHOLESTEROL (BEAKER) (test 55 mg/dL wjaz=577) LDL CHOLESTEROL CALCULATED 140 mg/dL (BEAKER) (test emap=564) Triglyceride Reference Range: Low Risk <150 Borderline 150- 199 High Risk 200-499 Very High Risk >=500Cholesterol Reference Range: Low Risk <200 Borderline 200-239 High Risk > 240HDL Cholesterol Reference Range: Low Risk >=60 High Risk <40LDL Cholesterol Reference Range: Optimal <100 Near Optimal 100-129 Borderline 130-159 High 160-189 Very High >=190CT, BRAIN, WITHOUT [id number] 20:27:00FINAL REPORT CT head without contrast. Comparisons: Outside MRI December 23 Reason for exam: Neoplasm: head, metastatic, recurrence, suspected/knownCT head stealth protocol,1mm cuts, 0 gantry. Pre-op. Discussion: Multiple axial Stealth protocol CT images of the head are provided. Dose modulation, iterative reconstruction, and/or weight based adjustment of the mA/kV was utilized to reduce the radiation dose to as low as reasonably achievable. The dominant left cerebellar lesion is seen as a low-density spherical mass estimated maximal dimension approximately 3.7 cm. Thereis cerebellar edema and substantial fourth ventricular distortion [...] magnum level is noted.. Signed: Sabina Perez Verified Date/Time: 12/23/2017 20:27:19 URINALYSIS W/ [id number] 16:04:00 Test Item Value Reference Range Comments COLOR (BEAKER) (test gtam=999) Yellow CLARITY (BEAKER) (test bdve=586) Hazy SPECIFIC GRAVITY UA (BEAKER) (test uglu=463) 1.024 1.001-1.035 PH UA (BEAKER) (test xnso=737) 6.5 5.0-8.0 PROTEIN UA (BEAKER) (test cwjo=828) 10 mg/dL Negative GLUCOSE UA (BEAKER) (test udnn=349) Negative Negative KETONES UA (BEAKER) (test eyxp=570) Trace Negative BILIRUBIN UA (BEAKER) (test kjle=958) Negative Negative BLOOD UA (BEAKER) (test ppmn=682) Negative Negative NITRITE UA (BEAKER) (test ekqq=965) Negative Negative LEUKOCYTE ESTERASE UA (BEAKER) (test nqxx=800) Negative Negative UROBILINOGEN UA (BEAKER) (test iqpa=833) 0.2 mg/dL 0.2-1.0 RBC UA (BEAKER) (test llvu=973) < /HPF WBC UA (BEAKER) (test nwyx=922) 2 /HPF MUCUS (BEAKER) (test kfxf=2878) Few SOURCE(BEAKER) (test xmzm=0904) RAD, CHEST, 1 VIEW, NON [id number] 13:30:00Reason for exam:-> HEADACHEReason for exam:->GAIT PROBLEMShould this be performed at the bedside ?->YesFINAL REPORT Chest two views AP 12/23/2017 1:30 PM CLINICAL INDICATION: HEADACHEGAIT PROBLEM COMPARISON: 04/25/2017 IMPRESSION: There is a trace left pleural effusion with adjacentbasilar atelectasis. Superimposed pneumonia should be excluded clinically. The left lung is well aerated. Cardiomediastinal contours are within normal limits. The central pulmonary vasculature is not engorged. Signed: Fidel Beaulieu Verified Date/Time: 12/23/2017 13:30:55 Reading Location: [address] Reading Room BASI METABOLIC [id number] 13:14:00 Test Item Value Reference Range Comments SODIUM (BEAKER) (test 139 meq/L 136-145 yzjb=399) POTASSIUM (BEAKER) (test 3.1 meq/L 3.5-5.1 nrzi=699) CHLORIDE (BEAKER) (test 102 meq/L 98-107 nkma=061) CO2 (BEAKER) (test 27 meq/L 22-29 vmhp=541) BLOOD UREA NITROGEN 20 mg/dL 7-21 (BEAKER) (test vzqg=168) CREATININE (BEAKER) (test 0.80 mg/dL 0.57-1.25 brgl=017) GLUCOSE RANDOM (BEAKER) 109 mg/dL 70-105 (test lspe=581) CALCIUM (BEAKER) (test 9.0 mg/dL 8.4-10.2 bqbp=020) EGFR (BEAKER) (test 96 mL/min/1.73 sq m ESTIMATED GFR IS NOT nyux=0798) ACCURATE CREATININE CLEARANCE IN PREDICTING GLOMERULAR FILTRATION RATE. ESTIMATED GFR IS NOT APPLICABLE FOR DIALYSIS PATIENTS. [id number] 13:04:00 Test Item Value Reference Range Comments PROTIME (BEAKER) (test ulsx=059) 14.7 seconds 11.7-14.7 INR (BEAKER) (test ihkj=200) 1.2 <=5.9 PARTIAL THROMBOPLASTIN TIME (BEAKER) (test 30.9 seconds 22.5-36.0 ivag=982) RECOMMENDED COUMADIN/WARFARIN INR THERAPY RANGESSTANDARD DOSE: 2.0 - 3.0 Includes: PROPHYLAXIS forvenous thrombosis, systemic embolization; TREATMENT for venous thrombosis and/or pulmonary embolus.HIGH RISK: Target INR is 2.5-3.5 for patients with mechanical heart valves.CBC W/PLT COUNT & AUTO [id number] 12:55:00 Test Item Value Reference Range Comments WHITE BLOOD CELL COUNT (BEAKER) (test akkj=269) 9.5 K/ L 3.5-10.5 RED BLOOD CELL COUNT (BEAKER) (test knxr=243) 3.78 M/ L 4.63-6.08 HEMOGLOBIN (BEAKER) (test ocmc=335) 13.1 GM/DL 13.7-17.5 HEMATOCRIT (BEAKER) (test khkc=312) 38.3 % 40.1-51.0 MEAN CORPUSCULAR VOLUME (BEAKER) (test dfhl=046) 101.3 fL 79.0-92.2 MEAN CORPUSCULAR HEMOGLOBIN (BEAKER) (test 34.7 pg 25.7-32.2 ksap=733) MEAN CORPUSCULAR HEMOGLOBIN CONC (BEAKER) (test 34.2 GM/DL 32.3-36.5 fdcp=923) RED CELL DISTRIBUTION WIDTH (BEAKER) (test 12.5 % 11.6-14.4 kmsx=675) PLATELET COUNT (BEAKER) (test igbr=763) 169 K/CU MM 150-450 MEAN PLATELET VOLUME (BEAKER) (test upud=029) 9.1 fL 9.4-12.4 NUCLEATED RED BLOOD CELLS (BEAKER) (test 0 /100 WBC 0-0 ppha=936) NEUTROPHILS RELATIVE PERCENT (BEAKER) (test 78 % oocv=998) LYMPHOCYTES RELATIVE PERCENT (BEAKER) (test 9 % mcqp=076) MONOCYTES RELATIVE PERCENT (BEAKER) (test 10 % joni=730) EOSINOPHILS RELATIVE PERCENT (BEAKER) (test 2 % wlkt=364) BASOPHILS RELATIVE PERCENT (BEAKER) (test 0 % fdbq=611) NEUTROPHILS ABSOLUTE COUNT (BEAKER) (test 7.41 K/ L 1.78-5.38 zscr=873) LYMPHOCYTES ABSOLUTE COUNT (BEAKER) (test 0.85 K/ L 1.32-3.57 dmrx=128) MONOCYTES ABSOLUTE COUNT (BEAKER) (test 0.91 K/ L 0.30-0.82 rymz=307) EOSINOPHILS ABSOLUTE COUNT (BEAKER) (test 0.19 K/ L 0.04-0.54 ayxc=255) BASOPHILS ABSOLUTE COUNT (BEAKER) (test 0.03 K/ L 0.01-0.08 frxm=303) IMMATURE GRANULOCYTES-RELATIVE PERCENT (BEAKER) 1 % 0-1 (test jarc=4004) AFB CULTURE + [id number] 09:07:00 Test Item Value Reference Range Comments CULTURE (BEAKER) (test No acid-fast bacilli isolated zsmc=0186) in 42 days AFB SMEAR (BEAKER) (test No acid fast bacilli seen mpch=599) AFB CULTURE + [id number] 09:07:00 Test Item Value Reference Range Comments CULTURE (BEAKER) (test No acid-fast bacilli isolated fhxm=6662) in 42 days AFB SMEAR (BEAKER) (test No acid fast bacilli seen pobh=308) AFB CULTURE + [id number] 09:07:00 Test Item Value Reference Range Comments CULTURE (BEAKER) (test No acid-fast bacilli isolated nyju=0824) in 42 days AFB SMEAR (BEAKER) (test No acid fast bacilli seen oyzu=254) AFB CULTURE + [id number] 09:07:00 Test Item Value Reference Range Comments CULTURE (BEAKER) (test No acid-fast bacilli isolated ufmh=2889) in 42 days AFB SMEAR (BEAKER) (test No acid fast bacilli seen tmcy=913) FUNGUS CULTURE + [id number] 11:47:00 Test Item Value Reference Range Comments CULTURE (BEAKER) (test No fungus isolated in 28 days enzw=0286) FUNGUS SMEAR (BEAKER) (test No fungi seen krpp=0876) FUNGUS CULTURE + [id number] 11:47:00 Test Item Value Reference Range Comments CULTURE (BEAKER) (test No fungus isolated in 28 days xtlb=2788) FUNGUS SMEAR (BEAKER) (test No fungi seen ynwh=6139) FUNGUS CULTURE + [id number] 11:47:00 Test Item Value Reference Range Comments CULTURE (BEAKER) (test No fungus isolated in 28 days luvd=5975) FUNGUS SMEAR (BEAKER) (test No fungi seen blsl=1481) FUNGUS CULTURE + [id number] 09:24:00 Test Item Value Reference Range Comments CULTURE (BEAKER) (test wcox=1910) <1+ Radha albicans FUNGUS SMEAR (BEAKER) (test No fungi seen pxkt=0431) ANAEROBIC [id number] 13:51:00 Test Item Value Reference Range Comments CULTURE (BEAKER) (test <1+ Lactobacillus ulei=5937) species CULTURE (BEAKER) (test VEILLONELLA PARVULA <1+ Veillonella pzav=5903) parvula Ampicillin + Sulbactam Susceptible <=8 , (test code=6) Resistant >8 Cefoxitin (test Susceptible 0-16 , code=68) Resistant <0 or >16 Cefotaxime (test Susceptible 0-16 , code=8) Resistant <0 or >16 Penicillin G (test Susceptible 0-0.5 , code=3) Resistant <0 or >.5 Clindamycin (test Susceptible 0-2 , code=10) Resistant <0 or >2 Metronidazole (test Susceptible 0-8 , code=56) Resistant <0 or >8 Piperacillin (test Susceptible 0-32 , code=24) Resistant <0 or >32 CBC W/PLT COUNT & AUTO [id number] 09:41:00 Test Item Value Reference Range Comments WHITE BLOOD CELL COUNT (BEAKER) (test dkow=122) 11.8 K/ L 4.0-10.0 RED BLOOD CELL COUNT (BEAKER) (test vqvo=724) 3.30 M/ L 4.20-5.80 HEMOGLOBIN (BEAKER) (test tszq=265) 10.0 GM/DL 13.0-16.8 HEMATOCRIT (BEAKER) (test dunk=986) 31.5 % 40.0-50.0 MEAN CORPUSCULAR VOLUME (BEAKER) (test ugue=466) 95.6 fL 82.0-98.0 MEAN CORPUSCULAR HEMOGLOBIN (BEAKER) (test 30.4 pg 27.0-33.0 klmh=986) MEAN CORPUSCULAR HEMOGLOBIN CONC (BEAKER) (test 31.8 GM/DL 32.0-36.0 iovd=316) RED CELL DISTRIBUTION WIDTH (BEAKER) (test 17.1 % 10.3-14.2 tbrl=608) PLATELET COUNT (BEAKER) (test jjvp=109) 389 K/CU MM 150-430 MEAN PLATELET VOLUME (BEAKER) (test vtbr=599) 6.6 fL 6.5-10.5 NUCLEATED RED BLOOD CELLS (BEAKER) (test 0 /100 WBC 0-0 cppa=479) NEUTROPHILS RELATIVE PERCENT (BEAKER) (test 72 % fghn=158) LYMPHOCYTES RELATIVE PERCENT (BEAKER) (test 11 % mier=700) MONOCYTES RELATIVE PERCENT (BEAKER) (test 11 % svio=072) EOSINOPHILS RELATIVE PERCENT (BEAKER) (test 6 % xikm=964) BASOPHILS RELATIVE PERCENT (BEAKER) (test 0 % siwx=827) NEUTROPHILS ABSOLUTE COUNT (BEAKER) (test 8.47 K/ L 1.80-8.00 heke=210) LYMPHOCYTES ABSOLUTE COUNT (BEAKER) (test 1.32 K/ L 1.48-4.50 chll=867) MONOCYTES ABSOLUTE COUNT (BEAKER) (test 1.32 K/ L 0.00-1.30 xfba=576) EOSINOPHILS ABSOLUTE COUNT (BEAKER) (test 0.68 K/ L 0.00-0.50 tzyl=265) BASOPHILS ABSOLUTE COUNT (BEAKER) (test 0.05 K/ L 0.00-0.20 aude=407) 0.000.700.000.000.000.00(MANUAL DIFFERENTIAL)2017-04-25 09:41:00 Test Item Value Reference Range Comments TOTAL COUNTED (BEAKER) (test ndsa=7805) WBC MORPHOLOGY (BEAKER) (test fykd=883) Normal PLT MORPHOLOGY (BEAKER) (test frwt=251) Normal POLYCHROMATOPHILLIC RBCS(BEAKER) (test frhg=110) 1+ few BASIC METABOLIC [id number] 06:09:00 Test Item Value Reference Range Comments SODIUM (BEAKER) (test 137 meq/L 136-145 yumd=539) POTASSIUM (BEAKER) (test 4.3 meq/L 3.5-5.1 Specimen moderately abux=563) hemolyzed CHLORIDE (BEAKER) (test 106 meq/L 98-107 ruys=607) CO2 (BEAKER) (test 22 meq/L 22-29 hkyg=122) BLOOD UREA NITROGEN 7 mg/dL 7-21 (BEAKER) (test ltvd=127) CREATININE (BEAKER) (test 1.04 mg/dL 0.57-1.25 Specimen moderately keyg=982) hemolyzed GLUCOSE RANDOM (BEAKER) 238 mg/dL 70-105 (test behr=274) CALCIUM (BEAKER) (test 7.5 mg/dL 8.4-10.2 ejmk=517) EGFR (BEAKER) (test 71 mL/min/1.73 sq m ESTIMATED GFR IS NOT urnx=2395) ACCURATE CREATININE CLEARANCE IN PREDICTING GLOMERULAR FILTRATION RATE. ESTIMATED GFR IS NOT APPLICABLE FOR DIALYSIS PATIENTS. [id number] 05:51:00 Test Item Value Reference Range Comments MAGNESIUM (BEAKER) (test 2.3 mg/dL 1.6-2.6 Specimen moderately hemolyzed dvan=929) CBC W/PLT COUNT & AUTO [id number] 09:26:00 Test Item Value Reference Range Comments WHITE BLOOD CELL COUNT (BEAKER) (test iyhv=574) 13.2 K/ L 4.0-10.0 RED BLOOD CELL COUNT (BEAKER) (test pasf=518) 3.05 M/ L 4.20-5.80 HEMOGLOBIN (BEAKER) (test aopc=463) 9.5 GM/DL 13.0-16.8 HEMATOCRIT (BEAKER) (test bnem=621) 29.0 % 40.0-50.0 MEAN CORPUSCULAR VOLUME (BEAKER) (test pjba=070) 95.2 fL 82.0-98.0 MEAN CORPUSCULAR HEMOGLOBIN (BEAKER) (test 31.2 pg 27.0-33.0 yuvl=317) MEAN CORPUSCULAR HEMOGLOBIN CONC (BEAKER) (test 32.7 GM/DL 32.0-36.0 szzn=147) RED CELL DISTRIBUTION WIDTH (BEAKER) (test 16.4 % 10.3-14.2 ndka=364) PLATELET COUNT (BEAKER) (test pfqc=377) 402 K/CU MM 150-430 MEAN PLATELET VOLUME (BEAKER) (test bprb=287) 6.2 fL 6.5-10.5 NUCLEATED RED BLOOD CELLS (BEAKER) (test 0 /100 WBC 0-0 jehz=732) 0.000.700.000.000.000.00(MANUAL DIFFERENTIAL)2017-04-24 09:26:00 Test Item Value Reference Range Comments NEUTROPHILS - REL (DIFF) (BEAKER) (test ektg=3015) 74 % LYMPHOCYTES - REL (DIFF) (BEAKER) (test lagx=2098) 10 % MONOCYTES - REL (DIFF) (BEAKER) (test ntck=1276) 11 % EOSINOPHILS - REL (DIFF) (BEAKER) (test rgjl=0998) 2 % BANDS - REL (DIFF) (BEAKER) (test pjgw=4093) 3 % 0-10 NEUTROPHILS - ABS (DIFF) (BEAKER) (test wnxe=2732) 9.77 K/ L 1.80-8.00 LYMPHOCYTES - ABS (DIFF) (BEAKER) (test jgqb=8390) 1.32 K/ L 1.48-4.50 MONOCYTES - ABS (DIFF) (BEAKER) (test atxj=7005) 1.45 K/ L 0.00-1.30 EOSINOPHILS - ABS (DIFF) (BEAKER) (test dhih=7878) 0.26 K/ L 0.00-0.50 BANDS-ABS (DIFF) (BEAKER) (test okhg=8091) 0.4 K/ L 0.0-0.8 TOTAL COUNTED (BEAKER) (test bemx=7063) 100 BANDS + SEGMENTED NEUTROPHILS (BEAKER) (test 10.16 ohwz=3540) WBC MORPHOLOGY (BEAKER) (test ptar=538) Normal PLT MORPHOLOGY (BEAKER) (test yhiq=471) Normal RBC MORPHOLOGY (BEAKER) (test evfw=586) Normal VANCOMYCIN LEVEL, [id number] 06:34:00 Test Item Value Reference Range Comments VANCOMYCIN TROUGH (BEAKER) (test phdg=249) 17.9 ug/mL 10.0-20.0 BASIC METABOLIC [id number] 06:15:00 Test Item Value Reference Range Comments SODIUM (BEAKER) (test 137 meq/L 136-145 hjrz=992) POTASSIUM (BEAKER) (test 3.2 meq/L 3.5-5.1 qpqg=666) CHLORIDE (BEAKER) (test 103 meq/L 98-107 pxxd=730) CO2 (BEAKER) (test 24 meq/L 22-29 ddhm=881) BLOOD UREA NITROGEN 8 mg/dL 7-21 (BEAKER) (test nwjm=215) CREATININE (BEAKER) (test 0.93 mg/dL 0.57-1.25 ofti=550) GLUCOSE RANDOM (BEAKER) 84 mg/dL 70-105 (test ssah=292) CALCIUM (BEAKER) (test 7.8 mg/dL 8.4-10.2 rbuo=977) EGFR (BEAKER) (test 81 mL/min/1.73 sq m ESTIMATED GFR IS NOT suos=6344) ACCURATE CREATININE CLEARANCE IN PREDICTING GLOMERULAR FILTRATION RATE. ESTIMATED GFR IS NOT APPLICABLE FOR DIALYSIS PATIENTS. [id number] 06:13:00 Test Item Value Reference Range Comments MAGNESIUM (BEAKER) (test ijbm=240) 1.4 mg/dL 1.6-2.6 CBC W/PLT COUNT & AUTO [id number] 11:02:00 Test Item Value Reference Range Comments WHITE BLOOD CELL COUNT (BEAKER) (test jpnd=578) 12.5 K/ L 4.0-10.0 RED BLOOD CELL COUNT (BEAKER) (test suqb=151) 3.02 M/ L 4.20-5.80 HEMOGLOBIN (BEAKER) (test hbxj=522) 9.4 GM/DL 13.0-16.8 HEMATOCRIT (BEAKER) (test uuoa=351) 28.4 % 40.0-50.0 MEAN CORPUSCULAR VOLUME (BEAKER) (test irrp=367) 94.3 fL 82.0-98.0 MEAN CORPUSCULAR HEMOGLOBIN (BEAKER) (test 31.2 pg 27.0-33.0 iuno=457) MEAN CORPUSCULAR HEMOGLOBIN CONC (BEAKER) (test 33.1 GM/DL 32.0-36.0 vkij=519) RED CELL DISTRIBUTION WIDTH (BEAKER) (test 17.1 % 10.3-14.2 ngak=766) PLATELET COUNT (BEAKER) (test ghop=388) 388 K/CU MM 150-430 MEAN PLATELET VOLUME (BEAKER) (test myou=649) 6.3 fL 6.5-10.5 NUCLEATED RED BLOOD CELLS (BEAKER) (test 0 /100 WBC 0-0 lnca=781) NEUTROPHILS RELATIVE PERCENT (BEAKER) (test 70 % hgtv=843) LYMPHOCYTES RELATIVE PERCENT (BEAKER) (test 10 % eprz=603) MONOCYTES RELATIVE PERCENT (BEAKER) (test 13 % tosu=413) EOSINOPHILS RELATIVE PERCENT (BEAKER) (test 6 % mppv=630) BASOPHILS RELATIVE PERCENT (BEAKER) (test 0 % owke=512) NEUTROPHILS ABSOLUTE COUNT (BEAKER) (test 8.81 K/ L 1.80-8.00 ouzi=655) LYMPHOCYTES ABSOLUTE COUNT (BEAKER) (test 1.30 K/ L 1.48-4.50 ywvj=439) MONOCYTES ABSOLUTE COUNT (BEAKER) (test 1.67 K/ L 0.00-1.30 aedv=300) EOSINOPHILS ABSOLUTE COUNT (BEAKER) (test 0.74 K/ L 0.00-0.50 hszm=312) BASOPHILS ABSOLUTE COUNT (BEAKER) (test 0.03 K/ L 0.00-0.20 acsv=654) 0.000.700.000.000.000.00(MANUAL DIFFERENTIAL)2017-04-23 11:02:00 Test Item Value Reference Range Comments TOTAL COUNTED (BEAKER) (test cwdj=2499) WBC MORPHOLOGY (BEAKER) (test dnna=493) Normal RBC MORPHOLOGY (BEAKER) (test tqcd=722) Normal LARGE PLT(BEAKER) (test qcgo=0093) Present [id number] 06:22:00 Test Item Value Reference Range Comments MAGNESIUM (BEAKER) (test uach=148) 1.5 mg/dL 1.6-2.6 BASIC METABOLIC [id number] 06:22:00 Test Item Value Reference Range Comments SODIUM (BEAKER) (test 137 meq/L 136-145 dpfl=750) POTASSIUM (BEAKER) (test 3.5 meq/L 3.5-5.1 frti=001) CHLORIDE (BEAKER) (test 103 meq/L 98-107 qwgz=677) CO2 (BEAKER) (test 23 meq/L 22-29 gtju=092) BLOOD UREA NITROGEN 10 mg/dL 7-21 (BEAKER) (test hcjc=663) CREATININE (BEAKER) (test 0.96 mg/dL 0.57-1.25 xwsb=737) GLUCOSE RANDOM (BEAKER) 80 mg/dL 70-105 (test hiva=050) CALCIUM (BEAKER) (test 7.9 mg/dL 8.4-10.2 tgza=087) EGFR (BEAKER) (test 78 mL/min/1.73 sq m ESTIMATED GFR IS NOT lamo=0086) ACCURATE CREATININE CLEARANCE IN PREDICTING GLOMERULAR FILTRATION RATE. ESTIMATED GFR IS NOT APPLICABLE FOR DIALYSIS PATIENTS. CBC W/PLT COUNT & AUTO [id number] 16:05:00 Test Item Value Reference Range Comments WHITE BLOOD CELL COUNT (BEAKER) (test mtkh=570) 12.0 K/ L 4.0-10.0 RED BLOOD CELL COUNT (BEAKER) (test mjyy=425) 3.00 M/ L 4.20-5.80 HEMOGLOBIN (BEAKER) (test blxh=709) 9.3 GM/DL 13.0-16.8 HEMATOCRIT (BEAKER) (test gbwd=114) 28.5 % 40.0-50.0 MEAN CORPUSCULAR VOLUME (BEAKER) (test nery=985) 94.8 fL 82.0-98.0 MEAN CORPUSCULAR HEMOGLOBIN (BEAKER) (test 31.0 pg 27.0-33.0 fdwc=482) MEAN CORPUSCULAR HEMOGLOBIN CONC (BEAKER) (test 32.7 GM/DL 32.0-36.0 skfe=773) RED CELL DISTRIBUTION WIDTH (BEAKER) (test 16.5 % 10.3-14.2 gccy=740) PLATELET COUNT (BEAKER) (test iqxv=169) 398 K/CU MM 150-430 MEAN PLATELET VOLUME (BEAKER) (test xnzp=506) 6.1 fL 6.5-10.5 NUCLEATED RED BLOOD CELLS (BEAKER) (test 0 /100 WBC 0-0 vdni=062) NEUTROPHILS RELATIVE PERCENT (BEAKER) (test 69 % drqf=597) LYMPHOCYTES RELATIVE PERCENT (BEAKER) (test 10 % tkau=988) MONOCYTES RELATIVE PERCENT (BEAKER) (test 15 % glwz=107) EOSINOPHILS RELATIVE PERCENT (BEAKER) (test 5 % lanh=808) BASOPHILS RELATIVE PERCENT (BEAKER) (test 0 % kghj=792) NEUTROPHILS ABSOLUTE COUNT (BEAKER) (test 8.35 K/ L 1.80-8.00 nlbv=321) LYMPHOCYTES ABSOLUTE COUNT (BEAKER) (test 1.23 K/ L 1.48-4.50 ctqk=282) MONOCYTES ABSOLUTE COUNT (BEAKER) (test 1.82 K/ L 0.00-1.30 dtca=616) EOSINOPHILS ABSOLUTE COUNT (BEAKER) (test 0.63 K/ L 0.00-0.50 dtaw=655) BASOPHILS ABSOLUTE COUNT (BEAKER) (test 0.02 K/ L 0.00-0.20 ggyg=006) [id number] 05:38:00 Test Item Value Reference Range Comments MAGNESIUM (BEAKER) (test sarb=841) 1.5 mg/dL 1.6-2.6 BASIC METABOLIC [id number] 05:38:00 Test Item Value Reference Range Comments SODIUM (BEAKER) (test 140 meq/L 136-145 lnvg=989) POTASSIUM (BEAKER) (test 4.2 meq/L 3.5-5.1 dcar=679) CHLORIDE (BEAKER) (test 108 meq/L 98-107 ekfz=329) CO2 (BEAKER) (test 24 meq/L 22-29 vzhf=671) BLOOD UREA NITROGEN 9 mg/dL 7-21 (BEAKER) (test ozrn=377) CREATININE (BEAKER) (test 0.82 mg/dL 0.57-1.25 pavu=938) GLUCOSE RANDOM (BEAKER) 86 mg/dL 70-105 (test xkvj=953) CALCIUM (BEAKER) (test 8.1 mg/dL 8.4-10.2 muzn=631) EGFR (BEAKER) (test 93 mL/min/1.73 sq m ESTIMATED GFR IS NOT aybi=4736) ACCURATE CREATININE CLEARANCE IN PREDICTING GLOMERULAR FILTRATION RATE. ESTIMATED GFR IS NOT APPLICABLE FOR DIALYSIS PATIENTS. BASIC METABOLIC [id number] 04:46:00 Test Item Value Reference Range Comments SODIUM (BEAKER) (test 136 meq/L 136-145 pkmw=326) POTASSIUM (BEAKER) (test 3.2 meq/L 3.5-5.1 tswy=626) CHLORIDE (BEAKER) (test 103 meq/L 98-107 ektd=797) CO2 (BEAKER) (test 24 meq/L 22-29 jquf=215) BLOOD UREA NITROGEN 10 mg/dL 7-21 (BEAKER) (test jxli=895) CREATININE (BEAKER) (test 0.88 mg/dL 0.57-1.25 yuad=750) GLUCOSE RANDOM (BEAKER) 104 mg/dL 70-105 (test bvue=408) CALCIUM (BEAKER) (test 7.8 mg/dL 8.4-10.2 zbjl=721) EGFR (BEAKER) (test 86 mL/min/1.73 sq m ESTIMATED GFR IS NOT pwsi=6099) ACCURATE CREATININE CLEARANCE IN PREDICTING GLOMERULAR FILTRATION RATE. ESTIMATED GFR IS NOT APPLICABLE FOR DIALYSIS PATIENTS. [id number] 04:44:00 Test Item Value Reference Range Comments MAGNESIUM (BEAKER) (test uucz=344) 1.6 mg/dL 1.6-2.6 CBC W/PLT COUNT & AUTO [id number] 04:25:00 Test Item Value Reference Range Comments WHITE BLOOD CELL COUNT (BEAKER) (test gkvr=952) 11.6 K/ L 4.0-10.0 RED BLOOD CELL COUNT (BEAKER) (test plxv=082) 2.88 M/ L 4.20-5.80 HEMOGLOBIN (BEAKER) (test zazr=028) 8.8 GM/DL 13.0-16.8 HEMATOCRIT (BEAKER) (test npmg=220) 27.3 % 40.0-50.0 MEAN CORPUSCULAR VOLUME (BEAKER) (test obse=517) 94.7 fL 82.0-98.0 MEAN CORPUSCULAR HEMOGLOBIN (BEAKER) (test 30.5 pg 27.0-33.0 uefp=842) MEAN CORPUSCULAR HEMOGLOBIN CONC (BEAKER) (test 32.2 GM/DL 32.0-36.0 rjtf=039) RED CELL DISTRIBUTION WIDTH (BEAKER) (test 16.3 % 10.3-14.2 nmqs=750) PLATELET COUNT (BEAKER) (test ecvr=171) 390 K/CU MM 150-430 MEAN PLATELET VOLUME (BEAKER) (test zghf=784) 6.0 fL 6.5-10.5 NUCLEATED RED BLOOD CELLS (BEAKER) (test 0 /100 WBC 0-0 qwkd=375) NEUTROPHILS RELATIVE PERCENT (BEAKER) (test 72 % vhzy=696) LYMPHOCYTES RELATIVE PERCENT (BEAKER) (test 8 % jcft=413) MONOCYTES RELATIVE PERCENT (BEAKER) (test 15 % zhwc=397) EOSINOPHILS RELATIVE PERCENT (BEAKER) (test 4 % kvnb=850) BASOPHILS RELATIVE PERCENT (BEAKER) (test 0 % tkfe=824) NEUTROPHILS ABSOLUTE COUNT (BEAKER) (test 8.38 K/ L 1.80-8.00 dbfg=250) LYMPHOCYTES ABSOLUTE COUNT (BEAKER) (test 0.93 K/ L 1.48-4.50 ddfd=075) MONOCYTES ABSOLUTE COUNT (BEAKER) (test 1.78 K/ L 0.00-1.30 damy=464) EOSINOPHILS ABSOLUTE COUNT (BEAKER) (test 0.49 K/ L 0.00-0.50 dbuu=889) BASOPHILS ABSOLUTE COUNT (BEAKER) (test 0.01 K/ L 0.00-0.20 ffwh=792) 0.00ANAEROBIC [id number] 04:02:00 Test Item Value Reference Range Comments CULTURE (BEAKER) (test npva=4248) No anaerobes isolated CBC W/PLT COUNT & AUTO [id number] 06:21:00 Test Item Value Reference Range Comments WHITE BLOOD CELL COUNT (BEAKER) (test wlwl=505) 11.9 K/ L 4.0-10.0 RED BLOOD CELL COUNT (BEAKER) (test kyxu=666) 3.00 M/ L 4.20-5.80 HEMOGLOBIN (BEAKER) (test pagk=975) 9.0 GM/DL 13.0-16.8 HEMATOCRIT (BEAKER) (test hpam=531) 28.4 % 40.0-50.0 MEAN CORPUSCULAR VOLUME (BEAKER) (test gerl=095) 94.6 fL 82.0-98.0 MEAN CORPUSCULAR HEMOGLOBIN (BEAKER) (test 30.0 pg 27.0-33.0 fbwt=334) MEAN CORPUSCULAR HEMOGLOBIN CONC (BEAKER) (test 31.7 GM/DL 32.0-36.0 gfuj=438) RED CELL DISTRIBUTION WIDTH (BEAKER) (test 16.2 % 10.3-14.2 cyia=569) PLATELET COUNT (BEAKER) (test mxos=039) 409 K/CU MM 150-430 MEAN PLATELET VOLUME (BEAKER) (test whkr=079) 5.9 fL 6.5-10.5 NUCLEATED RED BLOOD CELLS (BEAKER) (test 0 /100 WBC 0-0 nlzk=927) NEUTROPHILS RELATIVE PERCENT (BEAKER) (test 72 % pqcs=276) LYMPHOCYTES RELATIVE PERCENT (BEAKER) (test 11 % nkpa=022) MONOCYTES RELATIVE PERCENT (BEAKER) (test 14 % zumb=757) EOSINOPHILS RELATIVE PERCENT (BEAKER) (test 3 % ojcp=789) BASOPHILS RELATIVE PERCENT (BEAKER) (test 0 % ganc=081) NEUTROPHILS ABSOLUTE COUNT (BEAKER) (test 8.55 K/ L 1.80-8.00 xaax=358) LYMPHOCYTES ABSOLUTE COUNT (BEAKER) (test 1.36 K/ L 1.48-4.50 bxxb=662) MONOCYTES ABSOLUTE COUNT (BEAKER) (test 1.68 K/ L 0.00-1.30 azkh=079) EOSINOPHILS ABSOLUTE COUNT (BEAKER) (test 0.34 K/ L 0.00-0.50 hlyw=311) BASOPHILS ABSOLUTE COUNT (BEAKER) (test 0.02 K/ L 0.00-0.20 ftjr=420) 0.00BASI METABOLIC [id number] 06:19:00 Test Item Value Reference Range Comments SODIUM (BEAKER) (test 138 meq/L 136-145 igzl=351) POTASSIUM (BEAKER) (test 3.6 meq/L 3.5-5.1 tjpg=076) CHLORIDE (BEAKER) (test 105 meq/L 98-107 ikew=308) CO2 (BEAKER) (test 24 meq/L 22-29 utsx=564) BLOOD UREA NITROGEN 9 mg/dL 7-21 (BEAKER) (test qnay=074) CREATININE (BEAKER) (test 0.84 mg/dL 0.57-1.25 bbmv=085) GLUCOSE RANDOM (BEAKER) 81 mg/dL 70-105 (test zjws=982) CALCIUM (BEAKER) (test 7.8 mg/dL 8.4-10.2 qqym=271) EGFR (BEAKER) (test 91 mL/min/1.73 sq m ESTIMATED GFR IS NOT exax=2263) ACCURATE CREATININE CLEARANCE IN PREDICTING GLOMERULAR FILTRATION RATE. ESTIMATED GFR IS NOT APPLICABLE FOR DIALYSIS PATIENTS. [id number] 06:03:00 Test Item Value Reference Range Comments MAGNESIUM (BEAKER) (test rgee=445) 1.3 mg/dL 1.6-2.6 [id number] 05:28:00 Test Item Value Reference Range Comments MAGNESIUM (BEAKER) (test bere=446) 1.5 mg/dL 1.6-2.6 BASIC METABOLIC [id number] 05:28:00 Test Item Value Reference Range Comments SODIUM (BEAKER) (test 141 meq/L 136-145 ezpa=683) POTASSIUM (BEAKER) (test 3.9 meq/L 3.5-5.1 qhbm=426) CHLORIDE (BEAKER) (test 110 meq/L 98-107 uidu=521) CO2 (BEAKER) (test 24 meq/L 22-29 wkbf=287) BLOOD UREA NITROGEN 11 mg/dL 7-21 (BEAKER) (test oytt=849) CREATININE (BEAKER) (test 0.98 mg/dL 0.57-1.25 scxs=939) GLUCOSE RANDOM (BEAKER) 88 mg/dL 70-105 (test htul=365) CALCIUM (BEAKER) (test 7.9 mg/dL 8.4-10.2 yltp=476) EGFR (BEAKER) (test 76 mL/min/1.73 sq m ESTIMATED GFR IS NOT zomg=7233) ACCURATE CREATININE CLEARANCE IN PREDICTING GLOMERULAR FILTRATION RATE. ESTIMATED GFR IS NOT APPLICABLE FOR DIALYSIS PATIENTS. CBC W/PLT COUNT & AUTO [id number] 05:21:00 Test Item Value Reference Range Comments WHITE BLOOD CELL COUNT (BEAKER) (test ozis=905) 11.7 K/ L 4.0-10.0 RED BLOOD CELL COUNT (BEAKER) (test xovu=624) 2.77 M/ L 4.20-5.80 HEMOGLOBIN (BEAKER) (test gihs=205) 8.7 GM/DL 13.0-16.8 HEMATOCRIT (BEAKER) (test xfvo=781) 26.2 % 40.0-50.0 MEAN CORPUSCULAR VOLUME (BEAKER) (test iejh=066) 94.5 fL 82.0-98.0 MEAN CORPUSCULAR HEMOGLOBIN (BEAKER) (test 31.4 pg 27.0-33.0 isrz=212) MEAN CORPUSCULAR HEMOGLOBIN CONC (BEAKER) (test 33.2 GM/DL 32.0-36.0 glzs=643) RED CELL DISTRIBUTION WIDTH (BEAKER) (test 16.3 % 10.3-14.2 ckek=480) PLATELET COUNT (BEAKER) (test drdl=999) 400 K/CU MM 150-430 MEAN PLATELET VOLUME (BEAKER) (test qmth=354) 5.9 fL 6.5-10.5 NUCLEATED RED BLOOD CELLS (BEAKER) (test 0 /100 WBC 0-0 mxfo=378) NEUTROPHILS RELATIVE PERCENT (BEAKER) (test 74 % npcv=545) LYMPHOCYTES RELATIVE PERCENT (BEAKER) (test 11 % oiny=184) MONOCYTES RELATIVE PERCENT (BEAKER) (test 13 % rfqh=400) EOSINOPHILS RELATIVE PERCENT (BEAKER) (test 2 % shcq=221) BASOPHILS RELATIVE PERCENT (BEAKER) (test 0 % huuz=914) NEUTROPHILS ABSOLUTE COUNT (BEAKER) (test 8.61 K/ L 1.80-8.00 knpv=418) LYMPHOCYTES ABSOLUTE COUNT (BEAKER) (test 1.28 K/ L 1.48-4.50 mqfv=205) MONOCYTES ABSOLUTE COUNT (BEAKER) (test 1.55 K/ L 0.00-1.30 tjin=326) EOSINOPHILS ABSOLUTE COUNT (BEAKER) (test 0.22 K/ L 0.00-0.50 bghf=490) BASOPHILS ABSOLUTE COUNT (BEAKER) (test 0.02 K/ L 0.00-0.20 fklx=765) 0.00ANAEROBIC [id number] 02:52:00 Test Item Value Reference Range Comments CULTURE (BEAKER) (test trfl=7703) No anaerobes isolated BRONCHIAL CULTURE + GRAM [id number] 11:17:00 Test Item Value Reference Range Comments CULTURE (BEAKER) (test <1+ Normal respiratory judith qkvf=3009) present GRAM STAIN RESULT (BEAKER) 3+ WBCs (test nifg=4833) GRAM STAIN RESULT (BEAKER) <1+ gram positive cocci in pairs (test iqfp=05395) GRAM STAIN RESULT (BEAKER) <1+ gram variable coccobacilli (test ajca=62647) SURGICALLY OBTAINED CULTURE + GRAM [id number] 09:46:00 Test Item Value Reference Range Comments CULTURE (BEAKER) (test See comment cxba=9085) GRAM STAIN RESULT (BEAKER) 1+ WBCs (test lhyy=2668) GRAM STAIN RESULT (BEAKER) <1+ gram positive cocci in (test pplx=53089) pairs 1+ Normal respiratory judith presentSURGICALLY OBTAINED CULTURE + GRAM [id number] 09:38:00 Test Item Value Reference Range Comments CULTURE (BEAKER) (test zbii=4105) No growth GRAM STAIN RESULT (BEAKER) (test 2+ WBCs uejx=7847) GRAM STAIN RESULT (BEAKER) (test No organisms seen hqcy=20090) SURGICALLY OBTAINED CULTURE + GRAM [id number] 09:37:00 Test Item Value Reference Range Comments CULTURE (BEAKER) (test ljtg=8013) No growth GRAM STAIN RESULT (BEAKER) (test <1+ WBCs jtqo=6769) GRAM STAIN RESULT (BEAKER) (test No organisms seen ewry=93615) BASIC METABOLIC [id number] 04:47:00 Test Item Value Reference Range Comments SODIUM (BEAKER) (test 141 meq/L 136-145 eomw=439) POTASSIUM (BEAKER) (test 3.5 meq/L 3.5-5.1 necj=719) CHLORIDE (BEAKER) (test 110 meq/L 98-107 miyd=432) CO2 (BEAKER) (test 22 meq/L 22-29 wyhi=424) BLOOD UREA NITROGEN 12 mg/dL 7-21 (BEAKER) (test bshj=019) CREATININE (BEAKER) (test 0.87 mg/dL 0.57-1.25 sgrz=215) GLUCOSE RANDOM (BEAKER) 97 mg/dL 70-105 (test xerk=948) CALCIUM (BEAKER) (test 7.7 mg/dL 8.4-10.2 wehh=929) EGFR (BEAKER) (test 87 mL/min/1.73 sq m ESTIMATED GFR IS NOT lwmy=0802) ACCURATE CREATININE CLEARANCE IN PREDICTING GLOMERULAR FILTRATION RATE. ESTIMATED GFR IS NOT APPLICABLE FOR DIALYSIS PATIENTS. CBC W/PLT COUNT & AUTO [id number] 04:45:00 Test Item Value Reference Range Comments WHITE BLOOD CELL COUNT (BEAKER) (test gaof=481) 12.1 K/ L 4.0-10.0 RED BLOOD CELL COUNT (BEAKER) (test iesi=256) 2.83 M/ L 4.20-5.80 HEMOGLOBIN (BEAKER) (test qafa=846) 8.8 GM/DL 13.0-16.8 HEMATOCRIT (BEAKER) (test mond=554) 26.4 % 40.0-50.0 MEAN CORPUSCULAR VOLUME (BEAKER) (test cidd=145) 93.6 fL 82.0-98.0 MEAN CORPUSCULAR HEMOGLOBIN (BEAKER) (test 31.1 pg 27.0-33.0 kgrm=276) MEAN CORPUSCULAR HEMOGLOBIN CONC (BEAKER) (test 33.3 GM/DL 32.0-36.0 viej=927) RED CELL DISTRIBUTION WIDTH (BEAKER) (test 16.1 % 10.3-14.2 kejd=639) PLATELET COUNT (BEAKER) (test jpis=040) 414 K/CU MM 150-430 MEAN PLATELET VOLUME (BEAKER) (test owdx=890) 5.9 fL 6.5-10.5 NUCLEATED RED BLOOD CELLS (BEAKER) (test 0 /100 WBC 0-0 ldlu=872) NEUTROPHILS RELATIVE PERCENT (BEAKER) (test 74 % uubm=836) LYMPHOCYTES RELATIVE PERCENT (BEAKER) (test 10 % okib=341) MONOCYTES RELATIVE PERCENT (BEAKER) (test 15 % ntek=978) EOSINOPHILS RELATIVE PERCENT (BEAKER) (test 2 % msxu=489) BASOPHILS RELATIVE PERCENT (BEAKER) (test 0 % gehw=181) NEUTROPHILS ABSOLUTE COUNT (BEAKER) (test 8.87 K/ L 1.80-8.00 gsyg=077) LYMPHOCYTES ABSOLUTE COUNT (BEAKER) (test 1.15 K/ L 1.48-4.50 arvx=955) MONOCYTES ABSOLUTE COUNT (BEAKER) (test 1.77 K/ L 0.00-1.30 zzyj=165) EOSINOPHILS ABSOLUTE COUNT (BEAKER) (test 0.23 K/ L 0.00-0.50 idrd=931) BASOPHILS ABSOLUTE COUNT (BEAKER) (test 0.03 K/ L 0.00-0.20 mcrn=167) [id number] 04:39:00 Test Item Value Reference Range Comments MAGNESIUM (BEAKER) (test jlxv=609) 2.0 mg/dL 1.6-2.6 BLOOD GAS, [id number] 04:29:00 Test Item Value Reference Range Comments PH ARTERIAL (BEAKER) (test dbwy=750) 7.49 7.35-7.45 PCO2 ARTERIAL (BEAKER) (test qyta=691) 33 mmHg 35-45 PO2 ARTERIAL (BEAKER) (test bije=957) 92 mmHg 80-90 O2 SATURATION ARTERIAL (BEAKER) (test xrpt=385) 97.5 % 96.0-97.0 HCO3 ARTERIAL (BEAKER) (test nulu=666) 24 mmol/L 21-29 BASE EXCESS ARTERIAL (BEAKER) (test luct=472) 1.5 mmol/L -2.0-3.0 PATIENT TEMPERATURE (BEAKER) (test ctke=4997) 37.5 C FIO2 (BEAKER) (test cqip=8780) 21.0 % If A-Line onlyTISSUE [id number] 16:58:00Surgical Pathology Report Case: [id number] Authorizing Provider: Anuj Mcclendon MD Collected: 04/15/2017 1506 Ordering Location: [facility] Received: 1519 PERIOPERATIVE SERVICES Pathologist: Rafael Velasquez MD Specimens: A) -Pleural, Right, Right pleural biopsy B) - Pleural, Right, right visceral pleura C) - Pleural, Right, right pleural biopsy D) - Pleural,Right, right visceral pleura #2 E) - Pleural, Right, right visceral pleura # 3 F) - Pleural, Right, right parietal and visceral pleura G) - Pleural, Right, right parietal pleural biopsy A. SOFT TISSUE, RIGHT PLEURAL BIOPSY: - PLEURAL FIBROSIS, GRANULATION TISSUE AND ACTIVE INFLAMMATIONB. SOFT TISSUE, RIGHT VISCERAL PLEURAL BIOPSY: - FIBRIN AND ACTIVE INFLAMMATIONC. SOFT TISSUE, RIGHT PLEURAL BIOPSY: - PLEURAL FIBROSIS, GRANULATION TISSUE AND ACTIVE INFLAMMATION - MATURE ADIPOSE TISSUED. SOFT TISSUE, RIGHT VISCERAL PLEURAL BIOPSY#2: - FIBRIN AND ACTIVE INFLAMMATIONE. SOFT TISSUE, RIGHT VISCERAL PLEURAL BIOPSY#3: - PLEURAL FIBROSIS, ORGANIZING GRANULATION TISSUE AND ACTIVE INFLAMMATIONF. SOFT TISSUE, RIGHT PARIETAL AND VISCERAL PLEURAL BIOPSY: - PLEURAL FIBROSIS, GRANULATION TISSUE AND ACTIVE INFLAMMATIONG. SOFT TISSUE, RIGHT PARIETAL PLEURAL BIOPSY: - PLEURAL FIBROSIS , GRANULATION TISSUE AND ACTIVE INFLAMMATION 85513 x 7, 98239 x 2A. Right pleural biopsy; B. Right visceral pleural biopsy C. Right pleural biopsy; D. Right visceral pleura #2; E.Right visceral pleural #3 biopsy; F. Right parietal and visceral pleura; G. Right parietal pleura biopsyThe specimen is received in two separate containers.A. The specimen is received fresh for frozen labeled with the patient's name and accession number as "pleura, right" and is a allen-pink soft tissue with an aggregate measurement of 2.3 x 0.7 x 0.2 cm. The specimen is submitted entirely for frozen examination.B. The specimen is received fresh for frozen labeled with the patient's name and accession number as "right pleura " and is a 1.3 x 0.2 x 0.1 cm soft allen tissue. The specimen is submitted entirely in cassette FSB1.Specimen is received in four containers of formalin alllabeled with the patient's information.C. Consists of three ragged fragments of allen-pink membranous tissue ranging from 0.2 to 2.5 cm, submitted entirely in C1.D. Labeled "right visceral pleura #2" consists of a ragged segment of allen- nichols soft tissue measuring 1.6 x 0.5 x 0.2 cm, submitted entirely inD1.E. The specimen is received fresh for frozen labeled with the patient's name and accession numberas "pleura, right" and consists of two fragments of soft tissue with an aggregate measurement of 2 x1 x 0.3 cm. The specimen is submitted entirely in cassette FSE1.F. Labeled "right parietal and visceral pleura" consists of multiple ragged fragments of allen, hemorrhagic, membranous tissue measuring 5.5 x 5 x 1 cm in aggregate. Beef Trimmer sections are submitted in F1 through F4.G. Labeled "right parietal pleura biopsy" consists of a segment of allen-orange, hemorrhagic, membranous tissue measuring 5 x 2.5 x 0.4 cm. The specimen is entirely submitted in G1 through G5. CG/ewINTRAOPERATIVE EXAMINATION , RIGHT PLEURAL BIOPSY:AFS1 - NEGATIVE FOR TUMOR - ACUTE INFLAMMATION , GRANULATION TISSUE AND FIBROSIS - RESULTS HAVE BEEN REPORTED BY DR. CARMONA AT 3:36 P.M. INTRAOPERATIVE EXAMINATION, RIGHT VISCERAL PLEURA #3, BIOPSY:EFS1 - ACTIVE AND ORGANIZING GRANULATION TISSUE - NEGATIVE FOR TUMOR - RESULTS HAVE BEEN REPORTED BY DR. CARMONA AT 4:01 P.M. A- G.Performed. All sections are negative for malignancy.BASIC METABOLIC [id number] 16:38:00 Test Item Value Reference Range Comments SODIUM (BEAKER) (test 138 meq/L 136-145 bgvw=166) POTASSIUM (BEAKER) (test 3.5 meq/L 3.5-5.1 wuxs=140) CHLORIDE (BEAKER) (test 109 meq/L 98-107 qcqb=038) CO2 (BEAKER) (test 22 meq/L 22-29 rhlm=107) BLOOD UREA NITROGEN 11 mg/dL 7-21 (BEAKER) (test pfyb=840) CREATININE (BEAKER) (test 0.81 mg/dL 0.57-1.25 tshz=496) GLUCOSE RANDOM (BEAKER) 126 mg/dL 70-105 (test splv=535) CALCIUM (BEAKER) (test 7.7 mg/dL 8.4-10.2 iqpl=587) EGFR (BEAKER) (test 94 mL/min/1.73 sq m ESTIMATED GFR IS NOT ooys=7078) ACCURATE CREATININE CLEARANCE IN PREDICTING GLOMERULAR FILTRATION RATE. ESTIMATED GFR IS NOT APPLICABLE FOR DIALYSIS PATIENTS. [id number] 16:37:00 Test Item Value Reference Range Comments MAGNESIUM (BEAKER) (test pdbz=673) 1.9 mg/dL 1.6-2.6 CBC W/PLT COUNT & AUTO [id number] 16:17:00 Test Item Value Reference Range Comments WHITE BLOOD CELL COUNT (BEAKER) (test mymm=903) 16.7 K/ L 4.0-10.0 RED BLOOD CELL COUNT (BEAKER) (test fsss=530) 2.37 M/ L 4.20-5.80 HEMOGLOBIN (BEAKER) (test lrtu=824) 7.7 GM/DL 13.0-16.8 HEMATOCRIT (BEAKER) (test kwix=855) 22.7 % 40.0-50.0 MEAN CORPUSCULAR VOLUME (BEAKER) (test yzwj=250) 95.9 fL 82.0-98.0 MEAN CORPUSCULAR HEMOGLOBIN (BEAKER) (test 32.3 pg 27.0-33.0 irto=307) MEAN CORPUSCULAR HEMOGLOBIN CONC (BEAKER) (test 33.7 GM/DL 32.0-36.0 wxyi=390) RED CELL DISTRIBUTION WIDTH (BEAKER) (test 17.1 % 10.3-14.2 yqdl=298) PLATELET COUNT (BEAKER) (test cqby=218) 458 K/CU MM 150-430 MEAN PLATELET VOLUME (BEAKER) (test iotn=327) 6.0 fL 6.5-10.5 NUCLEATED RED BLOOD CELLS (BEAKER) (test 0 /100 WBC 0-0 ctyo=653) NEUTROPHILS RELATIVE PERCENT (BEAKER) (test 79 % wogj=023) LYMPHOCYTES RELATIVE PERCENT (BEAKER) (test 8 % qkoe=813) MONOCYTES RELATIVE PERCENT (BEAKER) (test 12 % oths=298) EOSINOPHILS RELATIVE PERCENT (BEAKER) (test 1 % rpig=334) BASOPHILS RELATIVE PERCENT (BEAKER) (test 0 % epwd=637) NEUTROPHILS ABSOLUTE COUNT (BEAKER) (test 13.20 K/ L 1.80-8.00 irkh=995) LYMPHOCYTES ABSOLUTE COUNT (BEAKER) (test 1.30 K/ L 1.48-4.50 bzle=808) MONOCYTES ABSOLUTE COUNT (BEAKER) (test 2.00 K/ L 0.00-1.30 rtui=541) EOSINOPHILS ABSOLUTE COUNT (BEAKER) (test 0.22 K/ L 0.00-0.50 cffg=634) BASOPHILS ABSOLUTE COUNT (BEAKER) (test 0.04 K/ L 0.00-0.20 ddkf=013) 0.00BRONCHIAL CULTURE + GRAM [id number] 13:02:00 Test Item Value Reference Range Comments CULTURE (BEAKER) (test 1+ Normal respiratory judith bqyq=2755) present GRAM STAIN RESULT (BEAKER) 3+ WBCs (test nqzc=4141) GRAM STAIN RESULT (BEAKER) No organisms seen (test ukya=42339) VANCOMYCIN LEVEL, [id number] 09:32:00 Test Item Value Reference Range Comments VANCOMYCIN TROUGH (BEAKER) (test pvox=484) 19.0 ug/mL 10.0-20.0 BASIC METABOLIC [id number] 03:55:00 Test Item Value Reference Range Comments SODIUM (BEAKER) (test 139 meq/L 136-145 pntu=439) POTASSIUM (BEAKER) (test 3.5 meq/L 3.5-5.1 bpvv=843) CHLORIDE (BEAKER) (test 109 meq/L 98-107 kenb=466) CO2 (BEAKER) (test 24 meq/L 22-29 vypx=502) BLOOD UREA NITROGEN 10 mg/dL 7-21 (BEAKER) (test ojka=081) CREATININE (BEAKER) (test 0.73 mg/dL 0.57-1.25 rzil=787) GLUCOSE RANDOM (BEAKER) 125 mg/dL 70-105 (test dcfe=291) CALCIUM (BEAKER) (test 7.5 mg/dL 8.4-10.2 zcyq=064) EGFR (BEAKER) (test 107 mL/min/1.73 sq m ESTIMATED GFR IS NOT qttz=2453) ACCURATE CREATININE CLEARANCE IN PREDICTING GLOMERULAR FILTRATION RATE. ESTIMATED GFR IS NOT APPLICABLE FOR DIALYSIS PATIENTS. [id number] 03:49:00 Test Item Value Reference Range Comments MAGNESIUM (BEAKER) (test pitk=878) 1.9 mg/dL 1.6-2.6 CBC W/PLT COUNT & AUTO [id number] 03:45:00 Test Item Value Reference Range Comments WHITE BLOOD CELL COUNT (BEAKER) (test bfrc=180) 16.1 K/ L 4.0-10.0 RED BLOOD CELL COUNT (BEAKER) (test lbll=575) 2.26 M/ L 4.20-5.80 HEMOGLOBIN (BEAKER) (test jrbd=527) 7.4 GM/DL 13.0-16.8 HEMATOCRIT (BEAKER) (test xnfo=034) 21.5 % 40.0-50.0 MEAN CORPUSCULAR VOLUME (BEAKER) (test nrch=957) 95.2 fL 82.0-98.0 MEAN CORPUSCULAR HEMOGLOBIN (BEAKER) (test 32.7 pg 27.0-33.0 aopx=765) MEAN CORPUSCULAR HEMOGLOBIN CONC (BEAKER) (test 34.4 GM/DL 32.0-36.0 aedc=572) RED CELL DISTRIBUTION WIDTH (BEAKER) (test 17.2 % 10.3-14.2 auwx=678) PLATELET COUNT (BEAKER) (test fydc=601) 408 K/CU MM 150-430 MEAN PLATELET VOLUME (BEAKER) (test loou=180) 5.9 fL 6.5-10.5 NUCLEATED RED BLOOD CELLS (BEAKER) (test 0 /100 WBC 0-0 agdb=187) NEUTROPHILS RELATIVE PERCENT (BEAKER) (test 82 % vtjh=399) LYMPHOCYTES RELATIVE PERCENT (BEAKER) (test 6 % yegt=099) MONOCYTES RELATIVE PERCENT (BEAKER) (test 11 % babe=239) EOSINOPHILS RELATIVE PERCENT (BEAKER) (test 1 % sjly=485) BASOPHILS RELATIVE PERCENT (BEAKER) (test 0 % cegy=637) NEUTROPHILS ABSOLUTE COUNT (BEAKER) (test 13.20 K/ L 1.80-8.00 glpn=138) LYMPHOCYTES ABSOLUTE COUNT (BEAKER) (test 0.97 K/ L 1.48-4.50 okde=894) MONOCYTES ABSOLUTE COUNT (BEAKER) (test 1.78 K/ L 0.00-1.30 lhwm=371) EOSINOPHILS ABSOLUTE COUNT (BEAKER) (test 0.17 K/ L 0.00-0.50 veon=884) BASOPHILS ABSOLUTE COUNT (BEAKER) (test 0.03 K/ L 0.00-0.20 ywll=377) 0.00BLOOD GAS, [id number] 03:32:00 Test Item Value Reference Range Comments PH ARTERIAL (BEAKER) (test figg=219) 7.52 7.35-7.45 PCO2 ARTERIAL (BEAKER) (test ixjg=908) 28 mmHg 35-45 PO2 ARTERIAL (BEAKER) (test xpfo=360) 69 mmHg 80-90 O2 SATURATION ARTERIAL (BEAKER) (test sjrv=691) 95.9 % 96.0-97.0 HCO3 ARTERIAL (BEAKER) (test sxhb=340) 23 mmol/L 21-29 BASE EXCESS ARTERIAL (BEAKER) (test qfoa=863) -0.2 mmol/L -2.0-3.0 PATIENT TEMPERATURE (BEAKER) (test ibkl=4347) 36.6 C FIO2 (BEAKER) (test lioe=1669) 21.0 % If A-Line onlyCBC W/PLT COUNT & AUTO [id number] 21:29:00 Test Item Value Reference Range Comments WHITE BLOOD CELL COUNT (BEAKER) (test wgjv=914) 25.1 K/ L 4.0-10.0 RED BLOOD CELL COUNT (BEAKER) (test geqd=021) 2.59 M/ L 4.20-5.80 HEMOGLOBIN (BEAKER) (test txlf=528) 8.0 GM/DL 13.0-16.8 HEMATOCRIT (BEAKER) (test anjb=765) 24.7 % 40.0-50.0 MEAN CORPUSCULAR VOLUME (BEAKER) (test fgnm=084) 95.3 fL 82.0-98.0 MEAN CORPUSCULAR HEMOGLOBIN (BEAKER) (test 31.0 pg 27.0-33.0 cxgz=393) MEAN CORPUSCULAR HEMOGLOBIN CONC (BEAKER) (test 32.5 GM/DL 32.0-36.0 udmz=232) RED CELL DISTRIBUTION WIDTH (BEAKER) (test 16.1 % 10.3-14.2 awab=299) PLATELET COUNT (BEAKER) (test cyxv=880) 476 K/CU MM 150-430 MEAN PLATELET VOLUME (BEAKER) (test ykan=829) 5.8 fL 6.5-10.5 NUCLEATED RED BLOOD CELLS (BEAKER) (test 0 /100 WBC 0-0 odru=064) (MANUAL DIFFERENTIAL)2017-04-16 21:29:00 Test Item Value Reference Range Comments NEUTROPHILS - REL (DIFF) (BEAKER) (test 87 % lozu=2111) LYMPHOCYTES - REL (DIFF) (BEAKER) (test 3 % twwz=0210) MONOCYTES - REL (DIFF) (BEAKER) (test gkcn=3904) 7 % BANDS - REL (DIFF) (BEAKER) (test bmew=2183) 3 % 0-10 NEUTROPHILS - ABS (DIFF) (BEAKER) (test 21.84 K/ L 1.80-8.00 mlrf=2258) LYMPHOCYTES - ABS (DIFF) (BEAKER) (test 0.75 K/ L 1.48-4.50 rsan=7992) MONOCYTES - ABS (DIFF) (BEAKER) (test idkx=0467) 1.76 K/ L 0.00-1.30 BANDS-ABS (DIFF) (BEAKER) (test rral=6474) 0.8 K/ L 0.0-0.8 TOTAL COUNTED (BEAKER) (test akpu=9598) 100 BANDS + SEGMENTED NEUTROPHILS (BEAKER) (test 22.59 kpmo=3310) WBC MORPHOLOGY (BEAKER) (test ajjb=569) Normal PLT MORPHOLOGY (BEAKER) (test jfej=645) Normal ANISOCYTOSIS (BEAKER) (test zbbs=669) 1+ few MICROCYTES (BEAKER) (test nzom=679) 1+ few BLOOD GAS, [id number] 17:25:00 Test Item Value Reference Range Comments PH ARTERIAL (BEAKER) (test ujti=405) 7.49 7.35-7.45 PCO2 ARTERIAL (BEAKER) (test onib=167) 28 mmHg 35-45 PO2 ARTERIAL (BEAKER) (test immb=910) 88 mmHg 80-90 O2 SATURATION ARTERIAL (BEAKER) (test busx=804) 97.4 % 96.0-97.0 HCO3 ARTERIAL (BEAKER) (test ilaa=852) 21 mmol/L 21-29 BASE EXCESS ARTERIAL (BEAKER) (test ztxo=224) -2.2 mmol/L -2.0-3.0 PATIENT TEMPERATURE (BEAKER) (test eruw=4562) 37.0 C BASIC METABOLIC [id number] 16:42:00 Test Item Value Reference Range Comments SODIUM (BEAKER) (test 136 meq/L 136-145 uyfh=995) POTASSIUM (BEAKER) (test 4.1 meq/L 3.5-5.1 rapg=833) CHLORIDE (BEAKER) (test 108 meq/L 98-107 btat=617) CO2 (BEAKER) (test 23 meq/L 22-29 tiwa=698) BLOOD UREA NITROGEN 10 mg/dL 7-21 (BEAKER) (test ngfh=553) CREATININE (BEAKER) (test 0.66 mg/dL 0.57-1.25 crne=400) GLUCOSE RANDOM (BEAKER) 178 mg/dL 70-105 (test sggt=536) CALCIUM (BEAKER) (test 7.8 mg/dL 8.4-10.2 npoc=945) EGFR (BEAKER) (test 120 mL/min/1.73 sq m ESTIMATED GFR IS NOT wvqs=3756) ACCURATE CREATININE CLEARANCE IN PREDICTING GLOMERULAR FILTRATION RATE. ESTIMATED GFR IS NOT APPLICABLE FOR DIALYSIS PATIENTS. [id number] 16:41:00 Test Item Value Reference Range Comments MAGNESIUM (BEAKER) (test visx=789) 1.6 mg/dL 1.6-2.6 VANCOMYCIN LEVEL, [id number] 11:38:00 Test Item Value Reference Range Comments VANCOMYCIN TROUGH (BEAKER) (test rdpt=692) 8.2 ug/mL 10.0-20.0 VANCOMYCIN LEVEL, [id number] 11:34:00 Test Item Value Reference Range Comments VANCOMYCIN TROUGH (BEAKER) (test ffal=666) 9.2 ug/mL 10.0-20.0 CBC W/PLT COUNT & AUTO [id number] 10:23:00 Test Item Value Reference Range Comments WHITE BLOOD CELL COUNT (BEAKER) (test ecst=904) 26.1 K/ L 4.0-10.0 RED BLOOD CELL COUNT (BEAKER) (test skbt=913) 2.52 M/ L 4.20-5.80 HEMOGLOBIN (BEAKER) (test wppy=268) 8.0 GM/DL 13.0-16.8 HEMATOCRIT (BEAKER) (test qqwc=292) 24.1 % 40.0-50.0 MEAN CORPUSCULAR VOLUME (BEAKER) (test vuyb=093) 95.9 fL 82.0-98.0 MEAN CORPUSCULAR HEMOGLOBIN (BEAKER) (test 31.6 pg 27.0-33.0 dpcm=042) MEAN CORPUSCULAR HEMOGLOBIN CONC (BEAKER) (test 33.0 GM/DL 32.0-36.0 gqux=168) RED CELL DISTRIBUTION WIDTH (BEAKER) (test 17.0 % 10.3-14.2 oddr=088) PLATELET COUNT (BEAKER) (test cpmn=569) 456 K/CU MM 150-430 MEAN PLATELET VOLUME (BEAKER) (test erty=558) 6.0 fL 6.5-10.5 NUCLEATED RED BLOOD CELLS (BEAKER) (test 0 /100 WBC 0-0 jicx=742) 0.00(MANUAL DIFFERENTIAL)2017-04-16 10:23:00 Test Item Value Reference Range Comments NEUTROPHILS - REL (DIFF) (BEAKER) (test 70 % ders=0342) LYMPHOCYTES - REL (DIFF) (BEAKER) (test 5 % eauk=4015) MONOCYTES - REL (DIFF) (BEAKER) (test ggft=5648) 8 % BANDS - REL (DIFF) (BEAKER) (test tozc=2777) 17 % 0-10 NEUTROPHILS - ABS (DIFF) (BEAKER) (test 18.27 K/ L 1.80-8.00 jzjx=8108) LYMPHOCYTES - ABS (DIFF) (BEAKER) (test 1.31 K/ L 1.48-4.50 qrbm=9027) MONOCYTES - ABS (DIFF) (BEAKER) (test ckwq=2555) 2.09 K/ L 0.00-1.30 BANDS-ABS (DIFF) (BEAKER) (test bhvm=1139) 4.4 K/ L 0.0-0.8 TOTAL COUNTED (BEAKER) (test uvpo=4941) 100 BANDS + SEGMENTED NEUTROPHILS (BEAKER) (test 22.71 lytx=6100) WBC MORPHOLOGY (BEAKER) (test avus=965) Normal PLT MORPHOLOGY (BEAKER) (test rdmd=186) Normal RBC MORPHOLOGY (BEAKER) (test xmfi=827) Normal BLOOD GAS, [id number] 05:11:00 Test Item Value Reference Range Comments PH ARTERIAL (BEAKER) (test vhvt=143) 7.42 7.35-7.45 PCO2 ARTERIAL (BEAKER) (test prdc=269) 34 mmHg 35-45 PO2 ARTERIAL (BEAKER) (test feop=235) 188 mmHg 80-90 O2 SATURATION ARTERIAL (BEAKER) (test wyzf=081) 99.3 % 96.0-97.0 HCO3 ARTERIAL (BEAKER) (test hvku=094) 22 mmol/L 21-29 BASE EXCESS ARTERIAL (BEAKER) (test erom=707) -2.6 mmol/L -2.0-3.0 PATIENT TEMPERATURE (BEAKER) (test xxjb=5901) 36.5 C FIO2 (BEAKER) (test gksf=3352) 60.0 % BASIC METABOLIC [id number] 04:25:00 Test Item Value Reference Range Comments SODIUM (BEAKER) (test 136 meq/L 136-145 mqbj=017) POTASSIUM (BEAKER) (test 4.1 meq/L 3.5-5.1 gpzm=518) CHLORIDE (BEAKER) (test 108 meq/L 98-107 jjfg=730) CO2 (BEAKER) (test 21 meq/L 22-29 qkfa=611) BLOOD UREA NITROGEN 10 mg/dL 7-21 (BEAKER) (test osil=193) CREATININE (BEAKER) (test 0.56 mg/dL 0.57-1.25 rsng=209) GLUCOSE RANDOM (BEAKER) 174 mg/dL 70-105 (test tfqi=381) CALCIUM (BEAKER) (test 7.4 mg/dL 8.4-10.2 avgb=456) EGFR (BEAKER) (test 145 mL/min/1.73 sq m ESTIMATED GFR IS NOT ldmc=9700) ACCURATE CREATININE CLEARANCE IN PREDICTING GLOMERULAR FILTRATION RATE. ESTIMATED GFR IS NOT APPLICABLE FOR DIALYSIS PATIENTS. [id number] 04:17:00 Test Item Value Reference Range Comments MAGNESIUM (BEAKER) (test xzkl=236) 1.6 mg/dL 1.6-2.6 BLOOD GAS, [id number] 03:37:00 Test Item Value Reference Range Comments PH ARTERIAL (BEAKER) (test mpix=724) 7.52 7.35-7.45 PCO2 ARTERIAL (BEAKER) (test oucf=436) 26 mmHg 35-45 PO2 ARTERIAL (BEAKER) (test gaii=756) 254 mmHg 80-90 O2 SATURATION ARTERIAL (BEAKER) (test hfsp=084) 99.7 % 96.0-97.0 HCO3 ARTERIAL (BEAKER) (test utwz=208) 21 mmol/L 21-29 BASE EXCESS ARTERIAL (BEAKER) (test ixyy=957) -1.2 mmol/L -2.0-3.0 PATIENT TEMPERATURE (BEAKER) (test yzhi=1485) 36.5 C FIO2 (BEAKER) (test cyaj=8886) 60.0 % If A-Line onlySPIN/CONCENTRATION [id number] 01:55:00 Test Item Value Reference Range Comments CONCENTRATION CHARGED (BEAKER) (test gbxf=5171) Done HEMOGLOBIN AND [id number] 00:30:00 Test Item Value Reference Range Comments HEMOGLOBIN (BEAKER) (test ibah=988) 8.3 GM/DL 13.0-16.8 HEMATOCRIT (BEAKER) (test glah=711) 25.1 % 40.0-50.0 [id number] 20:39:00 Test Item Value Reference Range Comments MAGNESIUM (BEAKER) (test kfrb=013) 1.3 mg/dL 1.6-2.6 BASIC METABOLIC [id number] 20:39:00 Test Item Value Reference Range Comments SODIUM (BEAKER) (test 135 meq/L 136-145 qupl=575) POTASSIUM (BEAKER) (test 4.3 meq/L 3.5-5.1 aecu=763) CHLORIDE (BEAKER) (test 106 meq/L 98-107 jtyt=436) CO2 (BEAKER) (test 19 meq/L 22-29 hyxk=453) BLOOD UREA NITROGEN 10 mg/dL 7-21 (BEAKER) (test rxrh=451) CREATININE (BEAKER) (test 0.50 mg/dL 0.57-1.25 jntq=402) GLUCOSE RANDOM (BEAKER) 110 mg/dL 70-105 (test emgm=675) CALCIUM (BEAKER) (test 8.3 mg/dL 8.4-10.2 pfje=430) EGFR (BEAKER) (test 165 mL/min/1.73 sq m ESTIMATED GFR IS NOT miit=9837) ACCURATE CREATININE CLEARANCE IN PREDICTING GLOMERULAR FILTRATION RATE. ESTIMATED GFR IS NOT APPLICABLE FOR DIALYSIS PATIENTS. CBC (HEMOGRAM ONLY)2017-04-15 20:26:00 Test Item Value Reference Range Comments WHITE BLOOD CELL COUNT (BEAKER) (test llku=176) 31.7 K/ L 4.0-10.0 RED BLOOD CELL COUNT (BEAKER) (test fuxo=280) 3.11 M/ L 4.20-5.80 HEMOGLOBIN (BEAKER) (test mznx=020) 9.5 GM/DL 13.0-16.8 HEMATOCRIT (BEAKER) (test ljuq=013) 30.2 % 40.0-50.0 MEAN CORPUSCULAR VOLUME (BEAKER) (test hovk=350) 97.2 fL 82.0-98.0 MEAN CORPUSCULAR HEMOGLOBIN (BEAKER) (test 30.4 pg 27.0-33.0 jufw=129) MEAN CORPUSCULAR HEMOGLOBIN CONC (BEAKER) (test 31.3 GM/DL 32.0-36.0 jlce=144) RED CELL DISTRIBUTION WIDTH (BEAKER) (test 16.0 % 10.3-14.2 evdl=789) PLATELET COUNT (BEAKER) (test gwat=381) 482 K/CU MM 150-430 MEAN PLATELET VOLUME (BEAKER) (test wquv=868) 5.8 fL 6.5-10.5 NUCLEATED RED BLOOD CELLS (BEAKER) (test 0 /100 WBC 0-0 aepk=600) BLOOD GAS, [id number] 19:47:00 Test Item Value Reference Range Comments PH ARTERIAL (BEAKER) (test wpzo=518) 7.54 7.35-7.45 PCO2 ARTERIAL (BEAKER) (test hjii=326) 26 mmHg 35-45 PO2 ARTERIAL (BEAKER) (test mvhn=142) 202 mmHg 80-90 O2 SATURATION ARTERIAL (BEAKER) (test ztwu=270) 99.5 % 96.0-97.0 HCO3 ARTERIAL (BEAKER) (test oiqj=986) 22 mmol/L 21-29 BASE EXCESS ARTERIAL (BEAKER) (test afby=601) -0.5 mmol/L -2.0-3.0 PATIENT TEMPERATURE (BEAKER) (test iskk=5117) 34.8 C FIO2 (BEAKER) (test twlu=0363) 100.0 % GLUCOSE-STAT [id number] 16:31:00 Test Item Value Reference Range Comments GLUCOSE RANDOM (BEAKER) (test utke=669) 105 mg/dL 70-110 POTASSIUM-STAT [id number] 16:31:00 Test Item Value Reference Range Comments POTASSIUM (BEAKER) (test tmwh=027) 3.9 meq/L 3.6-5.5 BLOOD GAS, [id number] 16:31:00 Test Item Value Reference Range Comments PH ARTERIAL (BEAKER) (test xdbk=765) 7.44 7.35-7.45 PCO2 ARTERIAL (BEAKER) (test fzag=082) 39 mmHg 35-45 PO2 ARTERIAL (BEAKER) (test qudm=592) 432 mmHg 80-90 O2 SATURATION ARTERIAL (BEAKER) (test ptfx=788) 99.8 % 96.0-97.0 HCO3 ARTERIAL (BEAKER) (test sblt=856) 27 mmol/L 21-29 BASE EXCESS ARTERIAL (BEAKER) (test zolk=083) 1.9 mmol/L -2.0-3.0 PATIENT TEMPERATURE (BEAKER) (test ailk=2747) 34.8 C FIO2 (BEAKER) (test ekvi=0162) 100.0 % SODIUM NA-STAT [id number] 16:31:00 Test Item Value Reference Range Comments SODIUM (BEAKER) (test xymm=800) 134 meq/L 135-148 HGB/HCT (H&H) - STAT [id number] 16:31:00 Test Item Value Reference Range Comments HEMOGLOBIN (BEAKER) (test pdvp=312) 9.2 g/dL 13.0-16.8 HEMATOCRIT (BEAKER) (test eume=148) 27.0 % 40.0-50.0 BLOOD GAS, [id number] 15:04:00 Test Item Value Reference Range Comments PH ARTERIAL (BEAKER) (test zubo=906) 7.33 7.35-7.45 PCO2 ARTERIAL (BEAKER) (test sntu=456) 54 mmHg 35-45 PO2 ARTERIAL (BEAKER) (test urns=639) 404 mmHg 80-90 O2 SATURATION ARTERIAL (BEAKER) (test otue=101) 99.8 % 96.0-97.0 HCO3 ARTERIAL (BEAKER) (test nafu=793) 29 mmol/L 21-29 BASE EXCESS ARTERIAL (BEAKER) (test hgwd=088) 1.5 mmol/L -2.0-3.0 PATIENT TEMPERATURE (BEAKER) (test rtvm=2611) 34.9 C FIO2 (BEAKER) (test xrqo=8467) 100.0 % SODIUM NA-STAT [id number] 15:04:00 Test Item Value Reference Range Comments SODIUM (BEAKER) (test rwdu=589) 132 meq/L 135-148 POTASSIUM-STAT [id number] 15:04:00 Test Item Value Reference Range Comments POTASSIUM (BEAKER) (test opzc=743) 3.3 meq/L 3.6-5.5 HGB/HCT (H&H) - STAT [id number] 15:04:00 Test Item Value Reference Range Comments HEMOGLOBIN (BEAKER) (test xuns=246) 10.0 g/dL 13.0-16.8 HEMATOCRIT (BEAKER) (test qehe=685) 29.0 % 40.0-50.0 CALCIUM, [id number] 15:04:00 Test Item Value Reference Range Comments CALCIUM IONIZED (BEAKER) (test fpsv=395) 0.98 mmol/L 1.12-1.27 PH, BLOOD (BEAKER) (test ckkn=9257) 7.30 GLUCOSE-STAT [id number] 15:03:00 Test Item Value Reference Range Comments GLUCOSE RANDOM (BEAKER) (test dica=807) 92 mg/dL 70-110 CBC W/PLT COUNT & AUTO [id number] 07:58:00 Test Item Value Reference Range Comments WHITE BLOOD CELL COUNT (BEAKER) (test wvdf=256) 12.1 K/ L 4.0-10.0 RED BLOOD CELL COUNT (BEAKER) (test dxja=078) 3.31 M/ L 4.20-5.80 HEMOGLOBIN (BEAKER) (test gxef=244) 10.3 GM/DL 13.0-16.8 HEMATOCRIT (BEAKER) (test ebgh=501) 31.7 % 40.0-50.0 MEAN CORPUSCULAR VOLUME (BEAKER) (test onvo=014) 95.6 fL 82.0-98.0 MEAN CORPUSCULAR HEMOGLOBIN (BEAKER) (test 31.2 pg 27.0-33.0 ylub=922) MEAN CORPUSCULAR HEMOGLOBIN CONC (BEAKER) (test 32.7 GM/DL 32.0-36.0 cddi=014) RED CELL DISTRIBUTION WIDTH (BEAKER) (test 17.2 % 10.3-14.2 crve=385) PLATELET COUNT (BEAKER) (test ailb=981) 462 K/CU MM 150-430 MEAN PLATELET VOLUME (BEAKER) (test hiep=108) 6.5 fL 6.5-10.5 NUCLEATED RED BLOOD CELLS (BEAKER) (test 0 /100 WBC 0-0 apfa=567) NEUTROPHILS RELATIVE PERCENT (BEAKER) (test 72 % qiyw=233) LYMPHOCYTES RELATIVE PERCENT (BEAKER) (test 13 % tcap=636) MONOCYTES RELATIVE PERCENT (BEAKER) (test 12 % ftac=398) EOSINOPHILS RELATIVE PERCENT (BEAKER) (test 3 % huqj=140) BASOPHILS RELATIVE PERCENT (BEAKER) (test 0 % nyvg=737) NEUTROPHILS ABSOLUTE COUNT (BEAKER) (test 8.69 K/ L 1.80-8.00 tysc=808) LYMPHOCYTES ABSOLUTE COUNT (BEAKER) (test 1.56 K/ L 1.48-4.50 tjtj=662) MONOCYTES ABSOLUTE COUNT (BEAKER) (test 1.45 K/ L 0.00-1.30 muer=935) EOSINOPHILS ABSOLUTE COUNT (BEAKER) (test 0.34 K/ L 0.00-0.50 jkme=562) BASOPHILS ABSOLUTE COUNT (BEAKER) (test 0.05 K/ L 0.00-0.20 lxqc=820) [id number] 05:21:00 Test Item Value Reference Range Comments MAGNESIUM (BEAKER) (test 1.7 mg/dL 1.6-2.6 Specimen slightly hemolyzed ldpj=598) BASIC METABOLIC [id number] 05:21:00 Test Item Value Reference Range Comments SODIUM (BEAKER) (test 136 meq/L 136-145 ipvm=438) POTASSIUM (BEAKER) (test 4.5 meq/L 3.5-5.1 Specimen slightly dubr=919) hemolyzed CHLORIDE (BEAKER) (test 103 meq/L 98-107 cfgj=593) CO2 (BEAKER) (test 25 meq/L 22-29 taqa=487) BLOOD UREA NITROGEN 11 mg/dL 7-21 (BEAKER) (test oklg=229) CREATININE (BEAKER) (test 0.58 mg/dL 0.57-1.25 Specimen slightly zeuv=031) hemolyzed GLUCOSE RANDOM (BEAKER) 80 mg/dL 70-105 (test ugbt=258) CALCIUM (BEAKER) (test 8.2 mg/dL 8.4-10.2 sfrh=456) EGFR (BEAKER) (test 139 mL/min/1.73 sq m ESTIMATED GFR IS NOT sqso=9267) ACCURATE CREATININE CLEARANCE IN PREDICTING GLOMERULAR FILTRATION RATE. ESTIMATED GFR IS NOT APPLICABLE FOR DIALYSIS PATIENTS. [id number] 05:11:00 Test Item Value Reference Range Comments PROTIME (BEAKER) (test zuct=270) 14.6 seconds 11.7-14.7 INR (BEAKER) (test kidt=141) 1.2 <=5.9 PARTIAL THROMBOPLASTIN TIME (BEAKER) (test 32.0 seconds 22.5-36.0 nbqv=668) RECOMMENDED COUMADIN/WARFARIN INR THERAPY RANGESSTANDARD DOSE: 2.0 - 3.0 Includes: PROPHYLAXIS forvenous thrombosis, systemic embolization; TREATMENT for venous thrombosis and/or pulmonary embolus.HIGH RISK: Target INR is 2.5-3.5 for patients with mechanical heart valves.[id number] 10:03:00Medical Cytology Report Case: [id number] Authorizing Provider: Perri Kim, Collected: 04/09/2017 1451 DRIER OPERATOR OrderingLocation: [address] Received: 04/11/2017 1219 Service Pathologist: Dorene Akers MD Specimen: Pleural , Right RIGHT PLEURAL FLUID (CYTOSPINS AND CELL BLOCK): - NEGATIVE FOR MALIGNANCY - ACUTE INFLAMMATION, MARKED Signing Pathologist Direct Phone Line: The cell block slide shows features identical to those noted in the cytospin smears.[id number], [id number] right pleural effusion; small cell lung cancer; undergoing chemotherapy and radiation therapy. with recurrent, loculated, right- sided pleural effusionRIGHT PLEURAL FLUIDCell block(A2) and 4 cytospins prepared from 7 ml opaque white blood-tinged fluidCollected: [id number]: [id number].LimitedB[facility], Department of Pathology , [address] [place] [id number], [facility], [facility], [address] [place] [id number] , [id number] 05:54:00 Test Item Value Reference Range Comments MAGNESIUM (BEAKER) (test flqx=209) 1.6 mg/dL 1.6-2.6 BASIC METABOLIC [id number] 05:54:00 Test Item Value Reference Range Comments SODIUM (BEAKER) (test 133 meq/L 136-145 wxkb=018) POTASSIUM (BEAKER) (test 3.8 meq/L 3.5-5.1 zgwy=816) CHLORIDE (BEAKER) (test 99 meq/L 98-107 akkm=541) CO2 (BEAKER) (test 28 meq/L 22-29 ocjl=867) BLOOD UREA NITROGEN 10 mg/dL 7-21 (BEAKER) (test goii=242) CREATININE (BEAKER) (test 0.60 mg/dL 0.57-1.25 xzbs=075) GLUCOSE RANDOM (BEAKER) 107 mg/dL 70-105 (test ltby=978) CALCIUM (BEAKER) (test 8.0 mg/dL 8.4-10.2 pkjn=287) EGFR (BEAKER) (test 134 mL/min/1.73 sq m ESTIMATED GFR IS NOT yyrx=9338) ACCURATE CREATININE CLEARANCE IN PREDICTING GLOMERULAR FILTRATION RATE. ESTIMATED GFR IS NOT APPLICABLE FOR DIALYSIS PATIENTS. CBC W/PLT COUNT & AUTO [id number] 05:43:00 Test Item Value Reference Range Comments WHITE BLOOD CELL COUNT (BEAKER) (test jvfe=413) 15.1 K/ L 4.0-10.0 RED BLOOD CELL COUNT (BEAKER) (test ztop=315) 3.45 M/ L 4.20-5.80 HEMOGLOBIN (BEAKER) (test afvg=315) 10.7 GM/DL 13.0-16.8 HEMATOCRIT (BEAKER) (test ttrx=124) 33.1 % 40.0-50.0 MEAN CORPUSCULAR VOLUME (BEAKER) (test gdji=985) 95.9 fL 82.0-98.0 MEAN CORPUSCULAR HEMOGLOBIN (BEAKER) (test 31.1 pg 27.0-33.0 osqv=799) MEAN CORPUSCULAR HEMOGLOBIN CONC (BEAKER) (test 32.4 GM/DL 32.0-36.0 ueoh=190) RED CELL DISTRIBUTION WIDTH (BEAKER) (test 15.7 % 10.3-14.2 ckqe=644) PLATELET COUNT (BEAKER) (test fbzp=034) 479 K/CU MM 150-430 MEAN PLATELET VOLUME (BEAKER) (test toqd=826) 6.0 fL 6.5-10.5 NUCLEATED RED BLOOD CELLS (BEAKER) (test 0 /100 WBC 0-0 ngzk=818) NEUTROPHILS RELATIVE PERCENT (BEAKER) (test 79 % jmsg=056) LYMPHOCYTES RELATIVE PERCENT (BEAKER) (test 9 % hirc=800) MONOCYTES RELATIVE PERCENT (BEAKER) (test 10 % zlgg=508) EOSINOPHILS RELATIVE PERCENT (BEAKER) (test 3 % dwit=103) BASOPHILS RELATIVE PERCENT (BEAKER) (test 0 % hhfv=102) NEUTROPHILS ABSOLUTE COUNT (BEAKER) (test 11.80 K/ L 1.80-8.00 oadj=032) LYMPHOCYTES ABSOLUTE COUNT (BEAKER) (test 1.33 K/ L 1.48-4.50 zazb=243) MONOCYTES ABSOLUTE COUNT (BEAKER) (test 1.51 K/ L 0.00-1.30 ryng=170) EOSINOPHILS ABSOLUTE COUNT (BEAKER) (test 0.38 K/ L 0.00-0.50 sxag=127) BASOPHILS ABSOLUTE COUNT (BEAKER) (test 0.04 K/ L 0.00-0.20 bniy=921) 0.00CBC W/PLT COUNT & AUTO [id number] 10:04:00 Test Item Value Reference Range Comments WHITE BLOOD CELL COUNT (BEAKER) (test buwh=696) 18.8 K/ L 4.0-10.0 RED BLOOD CELL COUNT (BEAKER) (test quko=632) 3.34 M/ L 4.20-5.80 HEMOGLOBIN (BEAKER) (test dxjb=919) 10.7 GM/DL 13.0-16.8 HEMATOCRIT (BEAKER) (test ihaw=506) 31.6 % 40.0-50.0 MEAN CORPUSCULAR VOLUME (BEAKER) (test ligq=723) 94.8 fL 82.0-98.0 MEAN CORPUSCULAR HEMOGLOBIN (BEAKER) (test 32.1 pg 27.0-33.0 xbpf=729) MEAN CORPUSCULAR HEMOGLOBIN CONC (BEAKER) (test 33.9 GM/DL 32.0-36.0 swfv=271) RED CELL DISTRIBUTION WIDTH (BEAKER) (test 17.1 % 10.3-14.2 bqzr=129) PLATELET COUNT (BEAKER) (test yidj=417) 439 K/CU MM 150-430 MEAN PLATELET VOLUME (BEAKER) (test oqai=122) 6.4 fL 6.5-10.5 NUCLEATED RED BLOOD CELLS (BEAKER) (test 0 /100 WBC 0-0 bakk=786) 0.000.570.000.000.000.00(MANUAL DIFFERENTIAL)2017-04-13 10:04:00 Test Item Value Reference Range Comments NEUTROPHILS - REL (DIFF) (BEAKER) (test 69 % lhho=0948) LYMPHOCYTES - REL (DIFF) (BEAKER) (test 7 % dndi=4845) MONOCYTES - REL (DIFF) (BEAKER) (test kgsf=6802) 10 % EOSINOPHILS - REL (DIFF) (BEAKER) (test 3 % ezek=1171) METAMYELOCYTES-REL (DIFF) (BEAKER) (test 2 % 0-0 qgsl=017) MYELOCYTES-REL (DIFF) (BEAKER) (test mpov=9538) 2 % 0-0 BANDS - REL (DIFF) (BEAKER) (test qdyk=6493) 7 % 0-10 NEUTROPHILS - ABS (DIFF) (BEAKER) (test 12.97 K/ L 1.80-8.00 fmfc=3256) LYMPHOCYTES - ABS (DIFF) (BEAKER) (test 1.32 K/ L 1.48-4.50 ysit=2474) MONOCYTES - ABS (DIFF) (BEAKER) (test xirf=2509) 1.88 K/ L 0.00-1.30 EOSINOPHILS - ABS (DIFF) (BEAKER) (test 0.56 K/ L 0.00-0.50 aplq=3800) METAMYELOCTYES - ABS (DIFF) (BEAKER) (test 0.38 K/ L 0.00-0.00 snyn=843) BANDS-ABS (DIFF) (BEAKER) (test mvoo=4735) 1.3 K/ L 0.0-0.8 MYELOCYTES-ABS (DIFF) (BEAKER) (test hfgm=4105) 0.38 K/ L 0.00-0.00 TOTAL COUNTED (BEAKER) (test atfn=1138) 100 BANDS + SEGMENTED NEUTROPHILS (BEAKER) (test 14.29 erku=1452) WBC MORPHOLOGY (BEAKER) (test oxji=124) Normal PLT MORPHOLOGY (BEAKER) (test ynxa=094) Normal RBC MORPHOLOGY (BEAKER) (test gxfr=462) Normal BASIC METABOLIC [id number] 05:41:00 Test Item Value Reference Range Comments SODIUM (BEAKER) (test 132 meq/L 136-145 nsdd=514) POTASSIUM (BEAKER) (test 3.6 meq/L 3.5-5.1 cofx=813) CHLORIDE (BEAKER) (test 98 meq/L 98-107 kgcy=028) CO2 (BEAKER) (test 27 meq/L 22-29 jczm=372) BLOOD UREA NITROGEN 8 mg/dL 7-21 (BEAKER) (test hniw=994) CREATININE (BEAKER) (test 0.57 mg/dL 0.57-1.25 yleu=589) GLUCOSE RANDOM (BEAKER) 98 mg/dL 70-105 (test jqny=665) CALCIUM (BEAKER) (test 7.9 mg/dL 8.4-10.2 xhsr=703) EGFR (BEAKER) (test 142 mL/min/1.73 sq m ESTIMATED GFR IS NOT kfdo=3931) ACCURATE CREATININE CLEARANCE IN PREDICTING GLOMERULAR FILTRATION RATE. ESTIMATED GFR IS NOT APPLICABLE FOR DIALYSIS PATIENTS. [id number] 05:40:00 Test Item Value Reference Range Comments MAGNESIUM (BEAKER) (test ujrx=979) 1.5 mg/dL 1.6-2.6 CBC W/PLT COUNT & AUTO [id number] 10:22:00 Test Item Value Reference Range Comments WHITE BLOOD CELL COUNT (BEAKER) (test ghvj=196) 18.8 K/ L 4.0-10.0 RED BLOOD CELL COUNT (BEAKER) (test zbsi=534) 3.19 M/ L 4.20-5.80 HEMOGLOBIN (BEAKER) (test ptse=917) 9.9 GM/DL 13.0-16.8 HEMATOCRIT (BEAKER) (test xrkh=548) 30.5 % 40.0-50.0 MEAN CORPUSCULAR VOLUME (BEAKER) (test yunk=131) 95.6 fL 82.0-98.0 MEAN CORPUSCULAR HEMOGLOBIN (BEAKER) (test 30.9 pg 27.0-33.0 wqkn=457) MEAN CORPUSCULAR HEMOGLOBIN CONC (BEAKER) (test 32.3 GM/DL 32.0-36.0 gvjx=806) RED CELL DISTRIBUTION WIDTH (BEAKER) (test 15.7 % 10.3-14.2 kwqs=319) PLATELET COUNT (BEAKER) (test tlwh=297) 391 K/CU MM 150-430 MEAN PLATELET VOLUME (BEAKER) (test bnhs=002) 6.4 fL 6.5-10.5 NUCLEATED RED BLOOD CELLS (BEAKER) (test 0 /100 WBC 0-0 grhc=603) 0.000.520.000.000.710.000.000.000.00(MANUAL DIFFERENTIAL)2017-04-12 10:22:00 Test Item Value Reference Range Comments NEUTROPHILS - REL (DIFF) (BEAKER) (test 64 % xwzk=0229) LYMPHOCYTES - REL (DIFF) (BEAKER) (test 6 % mjkg=5539) MONOCYTES - REL (DIFF) (BEAKER) (test vvlu=5647) 5 % METAMYELOCYTES-REL (DIFF) (BEAKER) (test 1 % 0-0 djdi=330) MYELOCYTES-REL (DIFF) (BEAKER) (test ywjs=6232) 1 % 0-0 BANDS - REL (DIFF) (BEAKER) (test ipsn=1847) 23 % 0-10 NEUTROPHILS - ABS (DIFF) (BEAKER) (test 12.03 K/ L 1.80-8.00 mxuz=3090) LYMPHOCYTES - ABS (DIFF) (BEAKER) (test 1.13 K/ L 1.48-4.50 ewsh=5370) MONOCYTES - ABS (DIFF) (BEAKER) (test kmjz=6019) 0.94 K/ L 0.00-1.30 METAMYELOCTYES - ABS (DIFF) (BEAKER) (test 0.19 K/ L 0.00-0.00 jojc=616) BANDS-ABS (DIFF) (BEAKER) (test rowj=5909) 4.3 K/ L 0.0-0.8 MYELOCYTES-ABS (DIFF) (BEAKER) (test nvjg=9385) 0.19 K/ L 0.00-0.00 TOTAL COUNTED (BEAKER) (test fcoi=8113) 100 BANDS + SEGMENTED NEUTROPHILS (BEAKER) (test 16.36 gzou=2189) WBC MORPHOLOGY (BEAKER) (test iqfw=598) Normal PLT MORPHOLOGY (BEAKER) (test fuen=781) Normal RBC MORPHOLOGY (BEAKER) (test lgkj=701) Normal BODY FLUID CULTURE + GRAM [id number] 05:25:00 Test Item Value Reference Range Comments CULTURE (BEAKER) (test seql=0422) No growth GRAM STAIN RESULT (BEAKER) (test 4+ WBCs teyd=1141) GRAM STAIN RESULT (BEAKER) (test No organisms seen nujm=74999) BASIC METABOLIC [id number] 04:43:00 Test Item Value Reference Range Comments SODIUM (BEAKER) (test 131 meq/L 136-145 pmun=483) POTASSIUM (BEAKER) (test 3.7 meq/L 3.5-5.1 irhe=867) CHLORIDE (BEAKER) (test 98 meq/L 98-107 bokh=014) CO2 (BEAKER) (test 25 meq/L 22-29 gzxx=408) BLOOD UREA NITROGEN 6 mg/dL 7-21 (BEAKER) (test axbt=802) CREATININE (BEAKER) (test 0.53 mg/dL 0.57-1.25 itsw=498) GLUCOSE RANDOM (BEAKER) 96 mg/dL 70-105 (test wkls=316) CALCIUM (BEAKER) (test 7.8 mg/dL 8.4-10.2 hugy=543) EGFR (BEAKER) (test 154 mL/min/1.73 sq m ESTIMATED GFR IS NOT tjdr=8972) ACCURATE CREATININE CLEARANCE IN PREDICTING GLOMERULAR FILTRATION RATE. ESTIMATED GFR IS NOT APPLICABLE FOR DIALYSIS PATIENTS. [id number] 04:40:00 Test Item Value Reference Range Comments MAGNESIUM (BEAKER) (test ajdg=223) 1.5 mg/dL 1.6-2.6 BODY FLUID CULTURE + GRAM [id number] 12:40:00 Test Item Value Reference Range Comments CULTURE (BEAKER) (test See gram stain results. xmrh=2404) GRAM STAIN RESULT (BEAKER) 2+ WBCs (test pdem=7918) GRAM STAIN RESULT (BEAKER) 1+ gram positive rods (test jbsj=19939) GRAM STAIN RESULT (BEAKER) 1+ gram positive cocci in (test mssq=737762) pairs No growthCBC W/PLT COUNT & AUTO [id number] 07:31:00 Test Item Value Reference Range Comments WHITE BLOOD CELL COUNT (BEAKER) (test khcz=859) 22.7 K/ L 4.0-10.0 RED BLOOD CELL COUNT (BEAKER) (test zqhu=655) 3.18 M/ L 4.20-5.80 HEMOGLOBIN (BEAKER) (test hunj=258) 9.9 GM/DL 13.0-16.8 HEMATOCRIT (BEAKER) (test tjxc=467) 30.7 % 40.0-50.0 MEAN CORPUSCULAR VOLUME (BEAKER) (test osmm=987) 96.5 fL 82.0-98.0 MEAN CORPUSCULAR HEMOGLOBIN (BEAKER) (test 31.0 pg 27.0-33.0 gjwh=443) MEAN CORPUSCULAR HEMOGLOBIN CONC (BEAKER) (test 32.1 GM/DL 32.0-36.0 kglr=338) RED CELL DISTRIBUTION WIDTH (BEAKER) (test 15.6 % 10.3-14.2 zrqj=936) PLATELET COUNT (BEAKER) (test wojz=322) 338 K/CU MM 150-430 MEAN PLATELET VOLUME (BEAKER) (test rdpb=978) 6.7 fL 6.5-10.5 NUCLEATED RED BLOOD CELLS (BEAKER) (test 0 /100 WBC 0-0 mcmj=456) 0.000.640.000.000.790.000.000.000.00(MANUAL DIFFERENTIAL)2017-04-11 07:31:00 Test Item Value Reference Range Comments NEUTROPHILS - REL (DIFF) (BEAKER) (test 65 % poey=3539) LYMPHOCYTES - REL (DIFF) (BEAKER) (test 4 % jjzq=3493) MONOCYTES - REL (DIFF) (BEAKER) (test eyvl=9483) 10 % METAMYELOCYTES-REL (DIFF) (BEAKER) (test 1 % 0-0 fxjc=874) MYELOCYTES-REL (DIFF) (BEAKER) (test yuiq=0307) 4 % 0-0 BANDS - REL (DIFF) (BEAKER) (test dsmo=5876) 16 % 0-10 NEUTROPHILS - ABS (DIFF) (BEAKER) (test 14.76 K/ L 1.80-8.00 tmbf=9502) LYMPHOCYTES - ABS (DIFF) (BEAKER) (test 0.91 K/ L 1.48-4.50 tlsm=0463) MONOCYTES - ABS (DIFF) (BEAKER) (test mheb=2210) 2.27 K/ L 0.00-1.30 METAMYELOCTYES - ABS (DIFF) (BEAKER) (test 0.23 K/ L 0.00-0.00 rqrf=742) BANDS-ABS (DIFF) (BEAKER) (test lbop=2794) 3.6 K/ L 0.0-0.8 MYELOCYTES-ABS (DIFF) (BEAKER) (test ybxa=6708) 0.91 K/ L 0.00-0.00 TOTAL COUNTED (BEAKER) (test jytt=7482) 100 BANDS + SEGMENTED NEUTROPHILS (BEAKER) (test 18.39 qfnb=1359) WBC MORPHOLOGY (BEAKER) (test nywo=585) Normal PLT MORPHOLOGY (BEAKER) (test eggc=534) Normal POLYCHROMATOPHILLIC RBCS(BEAKER) (test obrz=915) 1+ few BASIC METABOLIC [id number] 05:46:00 Test Item Value Reference Range Comments SODIUM (BEAKER) (test 134 meq/L 136-145 gqcb=716) POTASSIUM (BEAKER) (test 3.5 meq/L 3.5-5.1 dhti=730) CHLORIDE (BEAKER) (test 102 meq/L 98-107 fkut=290) CO2 (BEAKER) (test 24 meq/L 22-29 ohdo=116) BLOOD UREA NITROGEN 8 mg/dL 7-21 (BEAKER) (test kuvw=505) CREATININE (BEAKER) (test 0.53 mg/dL 0.57-1.25 euwz=988) GLUCOSE RANDOM (BEAKER) 93 mg/dL 70-105 (test wdnx=490) CALCIUM (BEAKER) (test 7.6 mg/dL 8.4-10.2 boom=404) EGFR (BEAKER) (test 154 mL/min/1.73 sq m ESTIMATED GFR IS NOT roes=2442) ACCURATE CREATININE CLEARANCE IN PREDICTING GLOMERULAR FILTRATION RATE. ESTIMATED GFR IS NOT APPLICABLE FOR DIALYSIS PATIENTS. [id number] 05:32:00 Test Item Value Reference Range Comments MAGNESIUM (BEAKER) (test nioj=442) 1.4 mg/dL 1.6-2.6 BLOOD [id number] 00:00:00 Test Item Value Reference Range Comments CULTURE (BEAKER) (test hazp=3069) No growth in 5 days BLOOD [id number] 00:00:00 Test Item Value Reference Range Comments CULTURE (BEAKER) (test sdif=5059) No growth in 5 days CBC W/PLT COUNT & AUTO [id number] 12:48:00 Test Item Value Reference Range Comments WHITE BLOOD CELL COUNT (BEAKER) (test hwar=665) 22.8 K/ L 4.0-10.0 RED BLOOD CELL COUNT (BEAKER) (test ucsr=956) 3.24 M/ L 4.20-5.80 HEMOGLOBIN (BEAKER) (test qqmw=476) 10.1 GM/DL 13.0-16.8 HEMATOCRIT (BEAKER) (test lfja=684) 31.1 % 40.0-50.0 MEAN CORPUSCULAR VOLUME (BEAKER) (test zlqd=708) 96.0 fL 82.0-98.0 MEAN CORPUSCULAR HEMOGLOBIN (BEAKER) (test 31.3 pg 27.0-33.0 faui=650) MEAN CORPUSCULAR HEMOGLOBIN CONC (BEAKER) (test 32.6 GM/DL 32.0-36.0 othl=409) RED CELL DISTRIBUTION WIDTH (BEAKER) (test 15.9 % 10.3-14.2 snpm=741) PLATELET COUNT (BEAKER) (test lzei=072) 301 K/CU MM 150-430 MEAN PLATELET VOLUME (BEAKER) (test nexq=373) 7.0 fL 6.5-10.5 NUCLEATED RED BLOOD CELLS (BEAKER) (test 0 /100 WBC 0-0 lmyn=701) 0.000.690.000.000.860.000.000.000.00(MANUAL DIFFERENTIAL)2017-04-10 12:48:00 Test Item Value Reference Range Comments NEUTROPHILS - REL (DIFF) (BEAKER) (test 47 % xynz=2859) LYMPHOCYTES - REL (DIFF) (BEAKER) (test 4 % uaqe=1040) MONOCYTES - REL (DIFF) (BEAKER) (test hbwe=0173) 11 % METAMYELOCYTES-REL (DIFF) (BEAKER) (test 9 % 0-0 eodo=099) MYELOCYTES-REL (DIFF) (BEAKER) (test dppd=1885) 6 % 0-0 PROMYELOCYTES-REL (DIFF) (BEAKER) (test jkis=807) 2 % 0-0 BANDS - REL (DIFF) (BEAKER) (test acuk=9044) 21 % 0-10 NEUTROPHILS - ABS (DIFF) (BEAKER) (test 10.72 K/ L 1.80-8.00 pagl=8508) LYMPHOCYTES - ABS (DIFF) (BEAKER) (test 0.91 K/ L 1.48-4.50 wcfa=9336) MONOCYTES - ABS (DIFF) (BEAKER) (test fikd=3469) 2.51 K/ L 0.00-1.30 METAMYELOCTYES - ABS (DIFF) (BEAKER) (test 2.05 K/ L 0.00-0.00 qyhr=635) PROMYELOCYTES - ABS (DIFF) (BEAKER) (test 0.46 K/ L 0.00-0.00 jdlq=895) BANDS-ABS (DIFF) (BEAKER) (test harq=3613) 4.8 K/ L 0.0-0.8 MYELOCYTES-ABS (DIFF) (BEAKER) (test ofgb=4596) 1.37 K/ L 0.00-0.00 TOTAL COUNTED (BEAKER) (test lhpk=4388) 100 BANDS + SEGMENTED NEUTROPHILS (BEAKER) (test 15.50 ldis=4233) WBC MORPHOLOGY (BEAKER) (test ubbs=972) Normal PLT MORPHOLOGY (BEAKER) (test voju=485) Normal RBC MORPHOLOGY (BEAKER) (test cnwl=468) Normal BASIC METABOLIC [id number] 05:54:00 Test Item Value Reference Range Comments SODIUM (BEAKER) (test 133 meq/L 136-145 ohlb=452) POTASSIUM (BEAKER) (test 3.4 meq/L 3.5-5.1 qyen=843) CHLORIDE (BEAKER) (test 100 meq/L 98-107 zgqq=689) CO2 (BEAKER) (test 25 meq/L 22-29 nkmv=246) BLOOD UREA NITROGEN 7 mg/dL 7-21 (BEAKER) (test nmqi=649) CREATININE (BEAKER) (test 0.56 mg/dL 0.57-1.25 hwmh=947) GLUCOSE RANDOM (BEAKER) 162 mg/dL 70-105 (test uhor=005) CALCIUM (BEAKER) (test 7.7 mg/dL 8.4-10.2 rmys=592) EGFR (BEAKER) (test 145 mL/min/1.73 sq m ESTIMATED GFR IS NOT fnam=1440) ACCURATE CREATININE CLEARANCE IN PREDICTING GLOMERULAR FILTRATION RATE. ESTIMATED GFR IS NOT APPLICABLE FOR DIALYSIS PATIENTS. [id number] 05:46:00 Test Item Value Reference Range Comments MAGNESIUM (BEAKER) (test qpbj=116) 1.4 mg/dL 1.6-2.6 VANCOMYCIN LEVEL, [id number] 10:18:00 Test Item Value Reference Range Comments VANCOMYCIN TROUGH (BEAKER) (test dtzn=435) 12.9 ug/mL 10.0-20.0 CBC W/PLT COUNT & AUTO [id number] 09:18:00 Test Item Value Reference Range Comments WHITE BLOOD CELL COUNT (BEAKER) (test kvpr=785) 27.7 K/ L 4.0-10.0 RED BLOOD CELL COUNT (BEAKER) (test hizz=347) 3.32 M/ L 4.20-5.80 HEMOGLOBIN (BEAKER) (test zuqj=052) 10.5 GM/DL 13.0-16.8 HEMATOCRIT (BEAKER) (test qqfs=976) 31.7 % 40.0-50.0 MEAN CORPUSCULAR VOLUME (BEAKER) (test ozie=885) 95.5 fL 82.0-98.0 MEAN CORPUSCULAR HEMOGLOBIN (BEAKER) (test 31.6 pg 27.0-33.0 icbx=152) MEAN CORPUSCULAR HEMOGLOBIN CONC (BEAKER) (test 33.1 GM/DL 32.0-36.0 faum=440) RED CELL DISTRIBUTION WIDTH (BEAKER) (test 16.3 % 10.3-14.2 kmjc=222) PLATELET COUNT (BEAKER) (test msbf=919) 265 K/CU MM 150-430 MEAN PLATELET VOLUME (BEAKER) (test qmhe=706) 7.3 fL 6.5-10.5 NUCLEATED RED BLOOD CELLS (BEAKER) (test 0 /100 WBC 0-0 ejyr=576) 0.000.890.000.000.900.000.000.000.00(MANUAL DIFFERENTIAL)2017-04-09 09:18:00 Test Item Value Reference Range Comments NEUTROPHILS - REL (DIFF) (BEAKER) (test 42 % nhwr=1848) LYMPHOCYTES - REL (DIFF) (BEAKER) (test 5 % dfus=2513) MONOCYTES - REL (DIFF) (BEAKER) (test mtyu=7562) 6 % EOSINOPHILS - REL (DIFF) (BEAKER) (test 1 % uqcu=2143) METAMYELOCYTES-REL (DIFF) (BEAKER) (test 7 % 0-0 zzbd=335) MYELOCYTES-REL (DIFF) (BEAKER) (test qihv=2254) 8 % 0-0 BANDS - REL (DIFF) (BEAKER) (test gzev=1114) 31 % 0-10 NEUTROPHILS - ABS (DIFF) (BEAKER) (test 11.63 K/ L 1.80-8.00 qvzd=7849) LYMPHOCYTES - ABS (DIFF) (BEAKER) (test 1.39 K/ L 1.48-4.50 ckmy=7411) MONOCYTES - ABS (DIFF) (BEAKER) (test qyez=4816) 1.66 K/ L 0.00-1.30 EOSINOPHILS - ABS (DIFF) (BEAKER) (test 0.28 K/ L 0.00-0.50 fgbd=5456) METAMYELOCTYES - ABS (DIFF) (BEAKER) (test 1.94 K/ L 0.00-0.00 dfqp=960) BANDS-ABS (DIFF) (BEAKER) (test lptq=3233) 8.6 K/ L 0.0-0.8 MYELOCYTES-ABS (DIFF) (BEAKER) (test nmgz=8215) 2.22 K/ L 0.00-0.00 TOTAL COUNTED (BEAKER) (test vhis=9742) 100 BANDS + SEGMENTED NEUTROPHILS (BEAKER) (test 20.22 basb=1192) WBC MORPHOLOGY (BEAKER) (test ojfv=829) Normal PLT MORPHOLOGY (BEAKER) (test rmih=342) Normal POLYCHROMATOPHILLIC RBCS(BEAKER) (test ysgp=067) 1+ few BASIC METABOLIC [id number] 04:53:00 Test Item Value Reference Range Comments SODIUM (BEAKER) (test 135 meq/L 136-145 svsr=932) POTASSIUM (BEAKER) (test 3.8 meq/L 3.5-5.1 puhu=870) CHLORIDE (BEAKER) (test 103 meq/L 98-107 vyjr=144) CO2 (BEAKER) (test 25 meq/L 22-29 xtff=464) BLOOD UREA NITROGEN 8 mg/dL 7-21 (BEAKER) (test spuk=707) CREATININE (BEAKER) (test 0.58 mg/dL 0.57-1.25 ktig=856) GLUCOSE RANDOM (BEAKER) 122 mg/dL 70-105 (test xyok=872) CALCIUM (BEAKER) (test 7.9 mg/dL 8.4-10.2 wixn=608) EGFR (BEAKER) (test 139 mL/min/1.73 sq m ESTIMATED GFR IS NOT mwca=2236) ACCURATE CREATININE CLEARANCE IN PREDICTING GLOMERULAR FILTRATION RATE. ESTIMATED GFR IS NOT APPLICABLE FOR DIALYSIS PATIENTS. [id number] 04:39:00 Test Item Value Reference Range Comments MAGNESIUM (BEAKER) (test hhdu=610) 1.5 mg/dL 1.6-2.6 BASIC METABOLIC [id number] 04:39:00 Test Item Value Reference Range Comments SODIUM (BEAKER) (test 136 meq/L 136-145 hkfu=648) POTASSIUM (BEAKER) (test 3.5 meq/L 3.5-5.1 rmmh=231) CHLORIDE (BEAKER) (test 102 meq/L 98-107 fnwe=457) CO2 (BEAKER) (test 26 meq/L 22-29 gtif=020) BLOOD UREA NITROGEN 9 mg/dL 7-21 (BEAKER) (test ngfm=376) CREATININE (BEAKER) (test 0.59 mg/dL 0.57-1.25 vutc=648) GLUCOSE RANDOM (BEAKER) 126 mg/dL 70-105 (test qbwg=641) CALCIUM (BEAKER) (test 7.9 mg/dL 8.4-10.2 apmx=313) EGFR (BEAKER) (test 136 mL/min/1.73 sq m ESTIMATED GFR IS NOT fcmj=8990) ACCURATE CREATININE CLEARANCE IN PREDICTING GLOMERULAR FILTRATION RATE. ESTIMATED GFR IS NOT APPLICABLE FOR DIALYSIS PATIENTS. [id number] 04:38:00 Test Item Value Reference Range Comments PHOSPHORUS (BEAKER) (test ipik=560) 2.9 mg/dL 2.3-4.7 [id number] 04:38:00 Test Item Value Reference Range Comments MAGNESIUM (BEAKER) (test glvb=346) 1.4 mg/dL 1.6-2.6 PROTHROMBIN [id number] 04:34:00 Test Item Value Reference Range Comments PROTIME (BEAKER) (test bopu=865) 15.2 seconds 11.7-14.7 INR (BEAKER) (test wkvd=645) 1.2 <=5.9 RECOMMENDED COUMADIN/WARFARIN INR THERAPY RANGESSTANDARD DOSE: 2.0 - 3.0 Includes: PROPHYLAXIS forvenous thrombosis, systemic embolization; TREATMENT for venous thrombosis and/or pulmonary embolus.HIGH RISK: Target INR is 2.5-3.5 for patients with mechanical heart valves.VANCOMYCIN LEVEL, [id number] 21: 18:00 Test Item Value Reference Range Comments VANCOMYCIN TROUGH (BEAKER) (test rtlj=297) 10.4 ug/mL 10.0-20.0 BODY FLUID CELL COUNT WITH [id number] 21:08:00 Test Item Value Reference Range Comments APPEARANCE FLUID (BEAKER) (test innn=417) Cloudy Clear COLOR FLUID (BEAKER) (test sbzu=157) Yellow Colorless, Straw RBC FLUID (BEAKER) (test guaw=437) 1250 /cu mm <=1 ADJUSTED WBC FLUID (BEAKER) (test xzhe=9586) 76419 /cu mm <=5 LINING CELLS (BEAKER) (test focq=8283) 0 /cu mm <=1 NEUTROPHILS FLUID (BEAKER) (test mfmn=5533) 98 % LYMPHS FLUID (BEAKER) (test mekz=421) 0 % MONO/MACROPHAGE FLUID (BEAKER) (test iafq=085) 2 % EOSINOPHILS FLUID (BEAKER) (test yyib=835) 0 % BASO FLUID (BEAKER) (test vllx=458) 0 % CONTAINER BODY FLUID (BEAKER) (test bqsf=1988) EDTA Tube Many degenerated white blood cells present on stained smear.LACTATE DEHYDROGENASE (LDH), BODY [id number] 19:20:00 Test Item Value Reference Range Comments LACTATE DEHYDROGENASE FLUID (BEAKER) > U/L Light's criteria identifies (test uarx=245) effusions if one or more are pre Absence of reference range indicates that normals have not been defined.Assay performance has not been validated for this type of specimen.Please obtain glucose with pigtail catheter insertionPlease collect with pigtail catheter insertionPlease collect with pigtail catheter insertionPlease collect with pigtail catheter insertionPH, BODY [id number] 18:59:00 Test Item Value Reference Range Comments PH, BODY FLUID (BEAKER) (test vviv=1737) 7.36 GLUCOSE, BODY [id number] 18:50:00 Test Item Value Reference Range Comments GLUCOSE, BODY FLUID (BEAKER) (test aaso=8737) 5 mg/dL 70-110 Absence of reference range indicates that normals have not been defined.Assay performance has not been validated for this type of specimen.Please obtain glucose with pigtail catheter insertionPlease collect with pigtail catheter insertionPlease collect with pigtail catheter insertionPROTEIN, BODY [id number] 18:37:00 Test Item Value Reference Range Comments PROTEIN FLUID (BEAKER) (test 2.9 g/dL Light's criteria identifies pegu=854) effusions if one or more are pre Absence of reference range indicates that normals have not been defined.Assay performance has not been validated for this type of specimen.Please obtain glucose with pigtail catheter insertionPlease collect with pigtail catheter insertionPlease collect with pigtail catheter [id number] 05: 19:00 Test Item Value Reference Range Comments PHOSPHORUS (BEAKER) (test anct=618) 3.3 mg/dL 2.3-4.7 [id number] 05:19:00 Test Item Value Reference Range Comments MAGNESIUM (BEAKER) (test lrek=204) 1.8 mg/dL 1.6-2.6 BASIC METABOLIC [id number] 05:19:00 Test Item Value Reference Range Comments SODIUM (BEAKER) (test 132 meq/L 136-145 ynmm=208) POTASSIUM (BEAKER) (test 4.0 meq/L 3.5-5.1 ttod=162) CHLORIDE (BEAKER) (test 99 meq/L 98-107 njia=949) CO2 (BEAKER) (test 22 meq/L 22-29 shff=216) BLOOD UREA NITROGEN 6 mg/dL 7-21 (BEAKER) (test lrdj=024) CREATININE (BEAKER) (test 0.57 mg/dL 0.57-1.25 dloe=689) GLUCOSE RANDOM (BEAKER) 80 mg/dL 70-105 (test mbuw=119) CALCIUM (BEAKER) (test 8.2 mg/dL 8.4-10.2 bujd=214) EGFR (BEAKER) (test 142 mL/min/1.73 sq m ESTIMATED GFR IS NOT gccq=8760) ACCURATE CREATININE CLEARANCE IN PREDICTING GLOMERULAR FILTRATION RATE. ESTIMATED GFR IS NOT APPLICABLE FOR DIALYSIS PATIENTS. PROTHROMBIN [id number] 04:59:00 Test Item Value Reference Range Comments PROTIME (BEAKER) (test ssjf=112) 15.1 seconds 11.7-14.7 INR (BEAKER) (test adxg=855) 1.2 <=5.9 RECOMMENDED COUMADIN/WARFARIN INR THERAPY RANGESSTANDARD DOSE: 2.0 - 3.0 Includes: PROPHYLAXIS forvenous thrombosis, systemic embolization; TREATMENT for venous thrombosis and/or pulmonary embolus.HIGH RISK: Target INR is 2.5-3.5 for patients with mechanical heart valves.CBC W/PLT COUNT & AUTO [id number] 10:24:00 Test Item Value Reference Range Comments WHITE BLOOD CELL COUNT (BEAKER) (test bkrf=629) 15.4 K/ L 4.0-10.0 RED BLOOD CELL COUNT (BEAKER) (test ugiu=128) 3.41 M/ L 4.20-5.80 HEMOGLOBIN (BEAKER) (test jjrw=146) 11.2 GM/DL 13.0-16.8 HEMATOCRIT (BEAKER) (test lskd=403) 32.3 % 40.0-50.0 MEAN CORPUSCULAR VOLUME (BEAKER) (test hyoh=875) 94.7 fL 82.0-98.0 MEAN CORPUSCULAR HEMOGLOBIN (BEAKER) (test 32.8 pg 27.0-33.0 usce=813) MEAN CORPUSCULAR HEMOGLOBIN CONC (BEAKER) (test 34.6 GM/DL 32.0-36.0 sdce=064) RED CELL DISTRIBUTION WIDTH (BEAKER) (test 15.3 % 10.3-14.2 hrjn=695) PLATELET COUNT (BEAKER) (test myoc=372) 140 K/CU MM 150-430 MEAN PLATELET VOLUME (BEAKER) (test czvb=056) 7.8 fL 6.5-10.5 NUCLEATED RED BLOOD CELLS (BEAKER) (test 0 /100 WBC 0-0 upmk=866) 0.000.900.760.000.900.000.000.000.00(MANUAL DIFFERENTIAL)2017-04-06 10:24:00 Test Item Value Reference Range Comments NEUTROPHILS - REL (DIFF) (BEAKER) (test yqtv=1489) 9 % LYMPHOCYTES - REL (DIFF) (BEAKER) (test mnpq=9899) 6 % MONOCYTES - REL (DIFF) (BEAKER) (test twkb=2526) 2 % EOSINOPHILS - REL (DIFF) (BEAKER) (test xnwd=9638) 1 % METAMYELOCYTES-REL (DIFF) (BEAKER) (test ttvk=310) 5 % 0-0 MYELOCYTES-REL (DIFF) (BEAKER) (test vlbu=2454) 8 % 0-0 PROMYELOCYTES-REL (DIFF) (BEAKER) (test pqoa=441) 15 % 0-0 BANDS - REL (DIFF) (BEAKER) (test betv=8272) 54 % 0-10 NEUTROPHILS - ABS (DIFF) (BEAKER) (test uych=1897) 1.39 K/ L 1.80-8.00 LYMPHOCYTES - ABS (DIFF) (BEAKER) (test cdyw=6944) 0.92 K/ L 1.48-4.50 MONOCYTES - ABS (DIFF) (BEAKER) (test obbi=7991) 0.31 K/ L 0.00-1.30 EOSINOPHILS - ABS (DIFF) (BEAKER) (test hulo=7166) 0.15 K/ L 0.00-0.50 METAMYELOCTYES - ABS (DIFF) (BEAKER) (test 0.77 K/ L 0.00-0.00 mzdy=911) PROMYELOCYTES - ABS (DIFF) (BEAKER) (test 2.31 K/ L 0.00-0.00 mjnu=460) BANDS-ABS (DIFF) (BEAKER) (test kxzm=5596) 8.3 K/ L 0.0-0.8 MYELOCYTES-ABS (DIFF) (BEAKER) (test izdw=1576) 1.23 K/ L 0.00-0.00 TOTAL COUNTED (BEAKER) (test fsef=3626) 100 BANDS + SEGMENTED NEUTROPHILS (BEAKER) (test 9.70 jhbk=9181) WBC MORPHOLOGY (BEAKER) (test trrn=865) Normal PLT MORPHOLOGY (BEAKER) (test mles=763) Normal RBC MORPHOLOGY (BEAKER) (test vbub=617) Normal BASIC METABOLIC [id number] 05:58:00 Test Item Value Reference Range Comments SODIUM (BEAKER) (test 129 meq/L 136-145 yugm=909) POTASSIUM (BEAKER) (test 3.3 meq/L 3.5-5.1 bhwl=104) CHLORIDE (BEAKER) (test 96 meq/L 98-107 jzex=280) CO2 (BEAKER) (test 24 meq/L 22-29 vpxm=838) BLOOD UREA NITROGEN 7 mg/dL 7-21 (BEAKER) (test yfmh=155) CREATININE (BEAKER) (test 0.51 mg/dL 0.57-1.25 vfrc=084) GLUCOSE RANDOM (BEAKER) 87 mg/dL 70-105 (test cdpg=226) CALCIUM (BEAKER) (test 7.8 mg/dL 8.4-10.2 fksv=034) EGFR (BEAKER) (test 161 mL/min/1.73 sq m ESTIMATED GFR IS NOT nkfk=1915) ACCURATE CREATININE CLEARANCE IN PREDICTING GLOMERULAR FILTRATION RATE. ESTIMATED GFR IS NOT APPLICABLE FOR DIALYSIS PATIENTS. [id number] 05:31:00 Test Item Value Reference Range Comments PHOSPHORUS (BEAKER) (test aqnl=181) 2.8 mg/dL 2.3-4.7 [id number] 05:31:00 Test Item Value Reference Range Comments MAGNESIUM (BEAKER) (test urmq=786) 1.3 mg/dL 1.6-2.6 PROTHROMBIN TIME/[id number] 05:03:00 Test Item Value Reference Range Comments PROTIME (BEAKER) (test wcrd=135) 14.4 seconds 11.7-14.7 INR (BEAKER) (test muea=003) 1.1 <=5.9 RECOMMENDED COUMADIN/WARFARIN INR THERAPY RANGESSTANDARD DOSE: 2.0 - 3.0 Includes: PROPHYLAXIS forvenous thrombosis, systemic embolization; TREATMENT for venous thrombosis and/or pulmonary embolus.HIGH RISK: Target INR is 2.5-3.5 for patients with mechanical heart valves.
[2018-02-11] MEDS ORDERED: MORPHINE 4 MG/ML SYR ONE ×2 (14:05→15:48)
[2018-02-11] MEDS ORDERED: NA CHLORIDE 0.9% 1,000 ML ONE ×2 (14:06→16:20)
[2018-02-11] MEDS ORDERED: ONDANSETRON 4 MG/2 ML VIAL ONE (14:06)
[2018-02-11 14:19] LABS: Absolute Lymphocytes (CBC) 0.2 K/uL (0.7-4.9); Absolute Monocytes 0.7 K/uL (0.1-1.3); Absolute Neutrophil 7.7 K/uL (1.8-8.0); Basophils % 0.2 % (0-1.3); Eosinophils % 1.5 % (0-4.4); Hematocrit 40.1 % (39.6-49.0); Lymphocytes % 2.8 % (15.3-44.8); MCH 36.3 pg (27.0-35.0); MCV 106.9 fL (80-100); MPV 7.8 fL (7.6-11.3); Monocytes % 7.5 % (3.3-12.3); RBC Red Blood Cell Count 3.75 M/uL (4.33-5.43)
--- NOTE | 2018-02-11 15:03 | RAD REPORT ---
EXAM DESCRIPTION: RAD - Femur Left - 02/11/2018 2:30 pm CLINICAL HISTORY: History of malignancy audible sensation of bone breaking COMPARISON: Left femur February 10 FINDINGS: Transverse fracture is present in the midshaft left femur. There is 30 degree posterior an gulation. Approximately 6 mm of lateral displacement of the distal fracture fragment. There are perme ative changes seen in the shaft near the fracture site. This is presumed to be a pathologic fracture. No soft tissue mass component seen. No AVN or focal femoral head abnormality. Proximal femur shows no acute finding. No periosteal react ion. No suspicious soft tissue mass or soft tissue calcification. Vascular calcifications are present . No foreign body. IMPRESSION: Transverse fracture in the shaft of the femur are presumed to be pathologic. There is po sterior angulation approximately 30 degrees.
[2018-02-11 15:22] LABS: ALT/SGPT 57 IU/L (10-60); AST/SGOT 53 IU/L (10-42); Albumin 3.9 g/dL (3.2-5.5); Alkaline Phosphatase 110 IU/L (42-121); BUN Blood Urea Nitrogen 25 mg/dL (6-20); Bicarbonate 29 mEq/L (21-31); Bilirubin Total 0.8 mg/dL (0.3-1.2); Glucose Level 99 mg/dL (65-120); Potassium 4.1 mEq/L (3.6-5.0); Protein, Total 6.2 g/dL (6.0-8.3); Sodium Level 139 mEq/L (135-145)
[2018-02-11 15:36] LABS: Urine Blood NEGATIVE (NEG); Urine Glucose NEGATIVE (NEG); Urine Protein NEGATIVE (NEG); Urine Specific Gravity 1.025 (1.005-1.030); Urine pH 5.5 (5.0-7.0)
--- NOTE | 2018-02-11 15:44 | RAD REPORT ---
EXAM DESCRIPTION: RAD - Chest Single View - 02/11/2018 2:32 pm CLINICAL HISTORY: Femur fracture COMPARISON: March 2017 TECHNIQUE: AP portable chest image was obtained 1427 hours . FINDINGS: Fibrotic lung changes are present similar to comparison. No mass lesion identified. Small pleural effusion noted on the right. There are chronic pleural and parenchymal changes in the right b ase. Small lung base masses could be masked in this setting. Heart and vasculature are normal. No pneumothorax. Trachea is midline. No mediastinal or hilar mass s uspected. No gross bony abnormality seen. No acute aortic findings suspected. IMPRESSION: Fibrotic lung changes are present. No failure for acute cardiopulmonary process suspecte d. Small right pleural effusion with chronic pleural and parenchymal changes at the right base. The pleu ral fluid is much improved compared to March 2017. Small masses of the lung base could be masked.
--- NOTE | 2018-02-11 15:47 | EKG ---
Test Date: 2018-02-11 Test Time: 14:20:27 [employer] Lender: DIVYA MEASUREMENT RESULTS: Intervals: Rate: 79 WI: 156 QRSD: 80 QT: 376 QTc: 431 [place]: P: 66 WI: 156 QRS: 75 T: 68 INTERPRETIVE STATEMENTS: Normal sinus rhythm Normal ECG Compared to ECG 04/01/2017 12:43:19 Sinus tachycardia no longer present Right-axis deviation no longer present Electronically Signed On 02-11-18 15:46:44 CDT by Cali Pennington
[2018-02-11 15:56] LABS: Protime INR 1.08
[2018-02-11] MEDS ORDERED: PROPOFOL 200 MG/20 ML VIAL IV ONE (16:11)
--- NOTE | 2018-02-11 16:36 | EDPHYS ---
Physician Documentation [facility] Name: Parveen Michele Age: 72 yrs Sex: Male : 1945 Arrival Date: 02/11/2018 Time: 13:30 Bed 26 Private MD: ED Physician Beau Haines HPI: 02/11 14:00 This 72 yrs old Male presents to ER via EMS with complaints of Leg Injury. pm1 14:00 The patient presents with an injury. The complaints affect the left quadriceps. pm1 Context: The problem was sustained at home, resulted from sitting down. 14:00 Onset: The symptoms/episode began/occurred just prior to arrival. Modifying factors: pm1 The symptoms are alleviated by positioning and fentanyl given by EMS. the symptoms are aggravated by movement. Associated signs and symptoms: Pertinent negatives numbness, tingling. Treatment prior to arrival includes: fentanyl 100 mcg. Severity of symptoms: in the emergency department the symptoms have improved. The patient has not experienced similar symptoms in the past. The patient has been recently seen by a physician: Prior X-ray of lower extremity in the past two days showing a possible bone cancer lesion in left femur, same area with fracture. No trauma, no fall. Historical: - Allergies: 14:00 Demerol; kr2 - PMHx: 13:35 Hyperlipidemia; Lung Cancer; Hypertension; bone cancer; kr2 - Immunization history:: Adult Immunizations unknown. - Social history:: Smoking status: Patient uses tobacco products, denies chronic smoking, but will smoke occasionally. ROS: 14:00 Constitutional: Negative for fever, chills, and weight loss, Eyes: Negative for injury, pm1 pain, redness, and discharge, ENT: Negative for injury, pain, and discharge, Neck: Negative for injury, pain, and swelling, Cardiovascular: Negative for chest pain, palpitations, and edema, Respiratory: Negative for shortness of breath, cough, wheezing, and pleuritic chest pain, Abdomen/GI: Negative for abdominal pain, nausea, vomiting, diarrhea, and constipation, Back: Negative for injury and pain, : Negative for injury, bleeding, discharge, and swelling. 14:00 Skin: Negative for injury, rash, and discoloration, Neuro: Negative for headache, weakness, numbness, tingling, and seizure. 14:00 MS/extremity: Positive for deformity, pain, tenderness, of the left quadriceps. Exam: 14:00 Constitutional: This is a well developed, well nourished patient who is awake, alert, pm1 and in no acute distress. Head/Face: Normocephalic, atraumatic. Eyes: Pupils equal round and reactive to light, extra-ocular motions intact. Lids and lashes normal. Conjunctiva and sclera are non-icteric and not injected. Cornea within normal limits. Periorbital areas with no swelling, redness, or edema. ENT: Nares patent. No nasal discharge, no septal abnormalities noted. Tympanic membranes are normal and external auditory canals are clear. Oropharynx with no redness, swelling, or masses, exudates, or evidence of obstruction, uvula midline. Mucous membranes moist. Neck: Trachea midline, no thyromegaly or masses palpated, and no cervical lymphadenopathy. Supple, full range of motion without nuchal rigidity, or vertebral point tenderness. No Meningismus. Chest/axilla: Normal chest wall appearance and motion. Nontender with no deformity. No lesions are appreciated. Cardiovascular: Regular rate and rhythm with a normal S1 and S2. No gallops, murmurs, or rubs. Normal PMI, no JVD. No pulse deficits. Respiratory: Lungs have equal breath sounds bilaterally, clear to auscultation and percussion. No rales, rhonchi or wheezes noted. No increased work of breathing, no retractions or nasal flaring. Abdomen/GI: Soft, non-tender, with normal bowel sounds. No distension or tympany. No guarding or rebound. No evidence of tenderness throughout. Back: No spinal tenderness. No costovertebral tenderness. Full range of motion. Skin: Warm, dry with normal turgor. Normal color with no rashes, no lesions, and no evidence of cellulitis. 14:00 Musculoskeletal/extremity: Extremities: grossly normal except: noted in the left distal quadriceps: deformity, Pulses: noted to be 2+ in the left dorsalis pedis artery, brisk capillary refill, the left leg Sensation intact. 14:00 Neuro: Orientation: is normal, Mentation: is normal, Sensation: is normal, no obvious gross deficits. Vital Signs: 13:33 BP 106 / 70; Pulse 86; Resp 17; Temp 98; Pulse Ox 96% on R/A; Weight 56.25 kg; Height 5 kr2 ft. 7 in. (170.18 cm); Pain 6/10; 14:05 BP 114 / 69; Pulse 87; Resp 16; Pulse Ox 98% on R/A; kr2 15:00 BP 124 / 70; Pulse 88; Resp 16; Pulse Ox 97% on R/A; kr2 16:20 BP 136 / 70; Pulse 98; Resp 17; Temp 98; Pulse Ox 100% on R/A; kr2 16:27 BP 109 / 67; Pulse 91; Resp 14; Pulse Ox 100% on 2 lpm NC; kr2 16:30 BP 116 / 71; Pulse 94; Resp 15; Pulse Ox 100% on 3 lpm NC; kr2 16:45 BP 127 / 69; Pulse 90; Resp 16; Pulse Ox 99% 2 lpm ; kr2 17:00 BP 138 / 74; Pulse 85; Resp 18; Pulse Ox 100% on R/A; kr2 17:30 BP 126 / 75; Pulse 93; Resp 17; Pulse Ox 98% on R/A; kr2 18:33 BP 118 / 69; Pulse 90; Resp 16; Pulse Ox 98% on R/A; Pain 0/10; kr2 13:33 Body Mass Index 19.42 (56.25 kg, 170.18 cm) kr2 16:20 pre procedure kr2 16:27 Intra-procedure kr2 16:30 post procedure kr2 Procedures: 17:14 Reduction: of the left femur, using traction, Immobilized with Hare traction. Patient pm1 tolerated well. Patient conscious sedation with propofol. Patient tolerated well. 17:36 Performed Doppler of left foot pulses, dorsalis pedis, auscultated at 84 bpm. pm1 MDM: 13:45 Patient medically screened. pm1 16:10 Physician consultation: Russell Pink MD was contacted at 16:00, after a discussion of pm1 the case, a recommendation for transfer for higher level of care is made. 16:40 Physician consultation: MD Evans regarding regarding transfer, patient's condition, pm1 and will see patient. 17:00 Counseling: I had a detailed discussion with the patient and/or guardian regarding: the pm1 historical points, exam findings, and any diagnostic results supporting the discharge/admit diagnosis, lab results, radiology results, the need to transfer to another facility, for higher level of care. 17:15 Data reviewed: vital signs. Data interpreted: Pulse oximetry: on room air is 98 %. pm1 Interpretation: normal. 02/11 13:47 Order name: CBC with Diff; Complete Time: 17:18 pm1 02/11 13:47 Order name: CMP; Complete Time: 16:01 pm1 02/11 13:47 Order name: Type And Screen; Complete Time: 14:57 pm1 02/11 14:02 Order name: PT-INR; Complete Time: 16:30 pm1 02/11 14:02 Order name: Ptt, Activated; Complete Time: 16:30 pm1 02/11 14:23 Order name: Manual Differential; Complete Time: 17:18 EDMS 02/11 13:46 Order name: Femur Left XRAY; Complete Time: 15:20 pm1 02/11 14:01 Order name: Chest Single View XRAY; Complete Time: 16:01 pm1 02/11 14:57 Order name: ABO/RH no charge; Complete Time: 14:57 EDMS 02/11 15:35 Order name: Urine Dipstick--Ancillary (enter results); Complete Time: 16:01 bd 02/11 13:47 Order name: IV Saline Lock; Complete Time: 13:47 pm1 02/11 13:47 Order name: NPO; Complete Time: 13:47 pm1 02/11 14:01 Order name: EKG; Complete Time: 14:02 pm1 02/11 14:01 Order name: EKG - Nurse/Tech; Complete Time: 16:01 pm1 02/11 14:26 Order name: Labs - recollect needed; Complete Time: 16:01 bd 02/11 14:33 Order name: Traction Splint-Apply; Complete Time: 17:23 pm1 02/11 16:42 Order name: Conscious Sedation; Complete Time: 17:23 pm1 Administered Medications: 14:09 Drug: NS 0.9% 1000 ml Route: IV; Rate: 100 ml/hr; Site: right upper arm; kr2 17:52 Follow up: Response: No adverse reaction; IV Status: Infusion continued upon transfer kr2 14:09 Drug: morphine 4 mg Route: IVP; Site: left upper arm; kr2 14:15 Follow up: Response: No adverse reaction; Pain is decreased kr2 14:09 Drug: Zofran 4 mg Route: IVP; Site: right upper arm; kr2 14:30 Follow up: Response: No adverse reaction kr2 15:55 Drug: morphine 4 mg Route: IVP; Site: right upper arm; kr2 16:00 Follow up: Response: No adverse reaction; Pain is decreased kr2 Disposition: 22:35 Co-signature as Attending Physician, Beau Haines MD I agree with the assessment and kdr plan of care. Disposition: 02/11/18 16:35 Transfer ordered to [facility]. Diagnosis is Other fracture of shaft of left femur. - Reason for transfer: Higher level of care. - [facility] physician [facility]. - Condition is Stable. - Problem is new. - Symptoms have improved. Signatures: Dispatcher [employer] EDMS Tessy Brody Kevin, MD MD kdr Evan Perez, SUBSCRIPTION CREW LEADER SUBSCRIPTION CREW LEADER pm1 Annmarie Baker, RN RN kr2 Corrections: (The following items were deleted from the chart) 14:02 13:35 Allergies: No Known Allergies; kr2 kr2 18:35 16:35 02/11/2018 16:35 Transfer ordered to [facility]. Diagnosis is kr2 Other fracture of shaft of left femur. Reason for transfer: Higher level of care. Accepting physician is [facility]. Condition is Stable. Problem is new. Symptoms have improved. pm1
--- NOTE | 2018-02-11 16:36 | ER ---
Nurse's Notes [facility] Name: Parveen Michele Age: 72 yrs Sex: Male : 1945 Arrival Date: 02/11/2018 Time: 13:30 Bed 26 Private MD: Diagnosis: Other fracture of shaft of left femur Presentation: 02/11 13:31 Presenting complaint: EMS states: Patient has a history of bone cancer, states he went kr2 to sit in a chair, felt a pop and believes he broke his femur. States his doctor said that the bone could easily break at this point. We gave him a total of 150mcg of Fentanyl via IVP to saline lock in right upper arm. Transition of care: patient was not received from another setting of care. Onset of symptoms was February 11, 2018 at 12:45. Initial Sepsis Screen: Does the patient meet any 2 criteria? No. Patient's initial sepsis screen is negative. Does the patient have a suspected source of infection? No. Patient's initial sepsis screen is negative. 13:31 Method Of Arrival: EMS: [facility] kr2 13:31 Acuity: JOSEFA 3 kr2 13:36 Care prior to arrival: Medication(s) given: Fentanyl 150mcg IV initiated. in the right kr2 upper arm. Triage Assessment: 13:36 Musculoskeletal: Circulation, motion, and sensation intact. Capillary refill < 3 kr2 seconds, in bilateral toes. Range of motion: intact in left knee. Injury Description: Deformity sustained to left quadriceps and left knee. Historical: - Allergies: 14:00 Demerol; kr2 - PMHx: 13:35 Hyperlipidemia; Lung Cancer; Hypertension; bone cancer; kr2 - Immunization history:: Adult Immunizations unknown. - Social history:: Smoking status: Patient uses tobacco products, denies chronic smoking, but will smoke occasionally. Screenin:35 Abuse screen: Denies threats or abuse. Denies injuries from another. Nutritional kr2 screening: No deficits noted. Tuberculosis screening: No symptoms or risk factors identified. Fall Risk Gait- Impaired (20 pts.). Assessment: 13:38 General: Appears in no apparent distress. uncomfortable, well groomed, well developed, kr2 Behavior is calm, cooperative. Pain: Complains of pain in left leg Pain does not radiate. Pain currently is 6 out of 10 on a pain scale. Quality of pain is described as aching, sharp, tender, Pain began 30 min ago. Is continuous, Alleviated by medications, rest, Aggravated by repositioning. Neuro: Level of Consciousness is awake, alert, obeys commands, Oriented to person, place, time, situation. Cardiovascular: Capillary refill < 3 seconds in bilateral fingers Patient's skin is warm and dry. Respiratory: Airway is patent Respiratory effort is even, unlabored, Respiratory pattern is regular, symmetrical. GI: Abdomen is flat, non-distended. : No signs and/or symptoms were reported regarding the genitourinary system. EENT: Nares are clear bilaterally Oral mucosa is moist. Derm: Skin is intact, with poor turgor Skin is pink, warm \\T\\ dry. Musculoskeletal: Circulation, motion, and sensation intact. Range of motion: limited in left knee Bony deformity noted of left knee and left quadriceps. 14:30 Reassessment: Patient appears in no apparent distress at this time. Patient and/or kr2 family updated on plan of care and expected duration. Pain level reassessed. Patient is alert, oriented x 3, equal unlabored respirations, skin warm/dry/pink. Pain has decreased. 15:30 Reassessment: Patient appears in no apparent distress at this time. Patient and/or kr2 family updated on plan of care and expected duration. Pain level reassessed. Patient is alert, oriented x 3, equal unlabored respirations, skin warm/dry/pink. Pulse palpable, extremity pink and warm to touch, no discoloration. 16:20 Reassessment: Patient appears in no apparent distress at this time. Patient and/or kr2 family updated on plan of care and expected duration. Pain level reassessed. Patient is alert, oriented x 3, equal unlabored respirations, skin warm/dry/pink. Prepared for conscious sedation, consent signed, emergency equipment prepared, on monitor, supplemental oxygen applied. Evan Perez NP and Tony Ricardo present for procedure. 17:43 Reassessment: Patient appears in no apparent distress at this time. Patient and/or kr2 family updated on plan of care and expected duration. Pain level reassessed. Patient is alert, oriented x 3, equal unlabored respirations, skin warm/dry/pink. Patient states his pain has lessened "tremendously" since traction was placed. Traction remains in place, extremity remains pink and warm to touch. Provider verified pulse with doppler. Report called to [facility] at [facility] Patient denies pain at this time. Vital Signs: 13:33 BP 106 / 70; Pulse 86; Resp 17; Temp 98; Pulse Ox 96% on R/A; Weight 56.25 kg; Height 5 kr2 ft. 7 in. (170.18 cm); Pain 6/10; 14:05 BP 114 / 69; Pulse 87; Resp 16; Pulse Ox 98% on R/A; kr2 15:00 BP 124 / 70; Pulse 88; Resp 16; Pulse Ox 97% on R/A; kr2 16:20 BP 136 / 70; Pulse 98; Resp 17; Temp 98; Pulse Ox 100% on R/A; kr2 16:27 BP 109 / 67; Pulse 91; Resp 14; Pulse Ox 100% on 2 lpm NC; kr2 16:30 BP 116 / 71; Pulse 94; Resp 15; Pulse Ox 100% on 3 lpm NC; kr2 16:45 BP 127 / 69; Pulse 90; Resp 16; Pulse Ox 99% 2 lpm ; kr2 17:00 BP 138 / 74; Pulse 85; Resp 18; Pulse Ox 100% on R/A; kr2 17:30 BP 126 / 75; Pulse 93; Resp 17; Pulse Ox 98% on R/A; kr2 18:33 BP 118 / 69; Pulse 90; Resp 16; Pulse Ox 98% on R/A; Pain 0/10; kr2 13:33 Body Mass Index 19.42 (56.25 kg, 170.18 cm) kr2 16:20 pre procedure kr2 16:27 Intra-procedure kr2 16:30 post procedure kr2 ED Course: 13:30 Patient arrived in ED. kr2 13:33 Triage completed. kr2 13:35 Patient has correct armband on for positive identification. Bed in low position. Call kr2 light in reach. Side rails up X2. surveillance system monitor on. Pulse ox on. NIBP on. Door closed. Warm blanket given. Head of bed elevated. 13:35 Arm band placed on right wrist. kr2 13:40 Evan Perez NP is PHCP. pm1 13:40 Beau Haines MD is Attending Physician. pm1 13:47 Olivia, Annmarie, RN is Primary Nurse. kr2 13:50 Initial lab(s) drawn, by me, held in ED. Maintain EMS IV. Dressing intact. Good blood kr2 return noted. Site clean \\T\\ dry. Gauge \\T\\ site: 20g right upper arm. 13:52 Flushed right saline lock with 5 ml normal saline. kr2 14:31 Femur Left XRAY In Process Unspecified. EDMS 14:31 Chest Single View XRAY In Process Unspecified. EDMS 14:32 EKG done, by manager technical training. reviewed by Beau Haines MD. dt2 18:34 No provider procedures requiring assistance completed. Patient transferred, IV remains kr2 in place. Administered Medications: 14:09 Drug: NS 0.9% 1000 ml Route: IV; Rate: 100 ml/hr; Site: right upper arm; kr2 17:52 Follow up: Response: No adverse reaction; IV Status: Infusion continued upon transfer kr2 14:09 Drug: morphine 4 mg Route: IVP; Site: left upper arm; kr2 14:15 Follow up: Response: No adverse reaction; Pain is decreased kr2 14:09 Drug: Zofran 4 mg Route: IVP; Site: right upper arm; kr2 14:30 Follow up: Response: No adverse reaction kr2 15:55 Drug: morphine 4 mg Route: IVP; Site: right upper arm; kr2 16:00 Follow up: Response: No adverse reaction; Pain is decreased kr2 Outcome: 16:35 ER care complete, transfer ordered by MD. pm1 18:34 Transferred by ground EMS to [facility], Transfer form completed. kr2 18:34 Condition: stable 18:34 Instructed on the need for transfer, Demonstrated understanding of instructions. 18:35 Patient left the ED. kr2 Signatures: Dispatcher [employer] EDMS Evan Perez, [facility] RESPIRATORY THERAPIST pm1 Annmarie Baker, TAWANDA RN kr2 Kavita Cook dt2 Corrections: (The following items were deleted from the chart) 14:02 13:35 Allergies: No Known Allergies; kr2 kr2 17:49 16:24 Reassessment: Patient appears in no apparent distress at this time. Patient kr2 and/or family updated on plan of care and expected duration. Pain level reassessed. Patient is alert, oriented x 3, equal unlabored respirations, skin warm/dry/pink. Prepared for conscious sedation, consent signed, emergency equipment prepared, on monitor, supplemental oxygen applied. Evan Perez NP and Tony Ricardo present for procedure kr2
[2018-02-11 17:01] LABS: Anisocytosis 1+; Blood Morphology Comment NOTED (NOT SEEN); Platelet Estimate DECR
== END 2018-02-11 18:35 | disposition short-term general hospital (02) ==
LOC: ER 13:17
PROC: 0QS9XZZ Reposition Left Femoral Shaft, External Approach (ICD-10-PCS; principal; 2018-02-11)
DX: S72.392A Other fracture of shaft of left femur, initial encounter for closed fracture (principal); X58.XXXA Exposure to other specified factors, initial encounter; Y93.89 Activity, other specified; Y92.009 Unspecified place in unspecified non-institutional (private) residence as the place of occurrence of the external cause; Z72.0 Tobacco use; Z88.5 Allergy status to narcotic agent; Z85.830 Personal history of malignant neoplasm of bone; Z85.118 Personal history of other malignant neoplasm of bronchus and lung
CPT/HCPCS: 36415; 71045; 80053; 81003; 85025; 85610; 85730; 86850; 86900; 86901; 93005; 99285; J2405; J7030